=== PATIENT | female | born 1945 | race Caucasian/White ===

== ENCOUNTER → 2020-03-23 10:18 | Outpatient (REF) | payer MEDICARE, SELFPAY ==
--- NOTE | 2020-03-23 10:45 | CA_ITS ---
Transthoracic Echocardiogram Patient (Last, First, Middle): Michelle Tomlinson, Gender: Female Date of : 1945 Age: 74 Procedure Date: 03/23/2020 Procedure Type: Transthoracic Echocardiogram Location: OP Height: 162.56 cm Weight: 79.83 kg BSA: 1.85 m2 Heart Rate: bpm BP: 120 / 68 mmHg Crisis Clinician: FLOYD Referring MD: Wojciech Billings MD Symptoms: R00.2 Palpitations Study Quality: Good ECG Rhythm: Sinus Conclusions: - The left ventricular systolic function is normal. The visually estimated ejection fraction is between 60-65%. - No obvious valvular pathology seen on this study. Findings Left Ventricle Normal left ventricular cavity size. There is normal left ventricular wall thickness. The left ventricular systolic function is normal. The visually estimated ejection fraction is between 60-65%. There is no evidence of regional wall motion abnormalities. Diastolic function is normal for age. Right Ventricle Normal right ventricular cavity size and systolic function. Atria The left atrium is normal in size. The right atrium is normal in size. Aortic Valve There is a normal trileaflet aortic valve. There is no aortic valve stenosis. There is no aortic valve regurgitation. Mitral Valve The mitral valve appears normal. There is trace mitral valve regurgitation. There is no mitral valve stenosis. Pulmonic Valve The pulmonic valve was not well visualized. Tricuspid Valve Normal tricuspid valve structure. There is trace tricuspid valve regurgitation. The pulmonary artery systolic pressure is normal. Great Vessels The aortic annulus, sinuses of valsalva, and asc aorta are normal in size. Venous The inferior vena cava is normal in size and collapses greater than 50% with inspiration. Pericardium/Pleural There is no evidence of pericardial effusion. Prior Study Comparison No prior study available for comparison. Recommendations, Care & Conclusions No obvious valvular pathology seen on this study. Measurements 2D Linear Measurements IVSd: 1.01 0.6-0.9/0.6-1.0 cm LVIDd: 4.06 3.9-5.3/4.2-5.9 cm LVIDs: 2.22 2.0-3.6 cm LVPWd: 0.81 0.7-1.1 cm Ao Root: 2.37 2.1-3.5 cm LV Mass: 142.20 67-162/88-224 g LVOT Diam: 1.88 3.0+(-)1.3 cm Mitral Valve MV Pk E: 0.63 MV PK A: 0.94 MV Decel Time: 232.39 E/A: 0.67 E'Lateral: 0.09 E'Medial: 0.08 E/E' Med: 7.27 Decel [place]: 2.73 Aortic Valve AoV Pk Cong: 1.74 AoV Pk Grad: 12.12 LVOT LVOT Pk Cong: 1.25 LVOT Mn Cong: 0.75 LVOT VTI: 0.31 LVOT Pk Grad: 6.26 LVOT Mn Grad: 2.80 LVOT Diam: 1.88 LVOT Area: 2.78 Diastolic Function MV Pk E: 0.63 MV Pk A: 0.94 E/A: 0.67 E'Medial: 0.08 E/E' Med: 7.27 E' Laterial: 0.09 Tricuspid Valve TR Pk Cong: 2.54 TR Pk Grad: 25.79 RA Press: 3.00 RVSP: 28.00 Great Vessels Aorta Ao Root-2D: 2.37 2.0-3.7 cm Ao Asc: 3.30 2.1-3.4 cm Ao Arch: 2.63 Updated in Other Vendor System with Status of Final Seth Harris MD electronically signed on 03/24/2020 1:02:12 PM with status of Final
== END ==
LOC: HO.CARD 10:18
PROVIDERS: PCP Internal Medicine; Visit Provider Internal Medicine
DX: R00.2 Palpitations (principal)
CPT/HCPCS: 93306

== ENCOUNTER → 2020-04-15 13:12 | Outpatient (REF) | payer MEDICARE, SELFPAY ==
--- NOTE | 2020-04-15 13:17 | ECG_ITS ---
Hook-up date: 2020-04-15 13:30:00 Duration: 47:59:00 Test Indications: PALPITATIONS Medications: 90320 QRS complexes 75 Ventricular ectopics which represent <1 % of total QRS comp. 1266 Supraventricular ectopics which represent 1 % of total QRS comp. * Paced QRS complexs which represent % of total QRS comp. VENTRICULAR ECTOPY 72 Isolated 0 Bigeminal Cycles 0 Couplets 1 Runs 3 Beats in Runs 3 Beats LONGEST at 132 BPM at 03:42:39 2020-04-16 3 Beats FASTEST at 132 BPM at 03:42:39 2020-04-16 SUPRAVENTRICULAR ECTOPY 172 Isolated 26 Couplets 49 Runs 1042 Beats in Runs 124 Beats LONGEST at 74 BPM at 20:28:17 2020-04-15 3 Beats FASTEST at 145 BPM at 10:02:08 2020-04-16 HEART RATES 37 MIN at 03:44:29 2020-04-16 54 AVG 98 MAX at 15:23:55 2020-04-15 LONGEST RR 1.0080 secs at 03:53:12 2020-04-16 S-T LEVELS Channel 1 - 128 mm at 13:30:00 2020-04-15 - 128 mm at 13:30:00 2020-04-15 Channel 2 - 128 mm at 13:30:00 2020-04-15 - 128 mm at 13:30:00 2020-04-15 Channel 3 - 128 mm at 03:24:91 -- - 128 mm at 03:24:91 pt completed holter to asess palp.studt complted 04/15-04/16 . baselin rhythm is nsr. pt had several episodes of palp listed in her diary that correspond to runs of supraventricular beats of between 6 and 22 beats. these also occur during the day. she also had some very slow rates of bradycardia down to 37 bpm during the night. Pt has a nml EF on echo. discussed results with her and she will be referred to cardiology for further eval Referred By: Wojciech Galvez Overread By: JANIS GALVEZ MD
== END ==
LOC: HO.CARD 13:12
PROVIDERS: Visit Provider Internal Medicine
DX: R00.2 Palpitations (principal)
CPT/HCPCS: 93225; 93226

== ENCOUNTER → 2020-05-03 14:43 | Outpatient (BNVA) | payer MEDICARE, SELFPAY | PROVIDERS: PCP Internal Medicine; Referring Provider Internal Medicine; Visit Provider Internal Medicine | DX: I49.8 Other specified cardiac arrhythmias (principal); I10 Essential (primary) hypertension; G47.33 Obstructive sleep apnea (adult) (pediatric) | CPT/HCPCS: 93005; 99202 ==

== ENCOUNTER → 2020-05-17 12:49 | Outpatient (REF) | payer MEDICARE, SELFPAY ==
--- NOTE | 2020-05-17 13:23 | HM_ITS ---
TEST PERFORMED: Cardiac event monitoring. ENROLLMENT PERIOD: 05/17/2020 to 06/19/2020 - 33 days. REQUESTING PHYSICIAN: Dr. Harris. FINDINGS: In the above monitoring period, underlying rhythm was sinus. The rates ranged from 43 beats per minute to 82 beats per minute. There were several patient triggered episodes of palpitations. Some of these times have shown isolated PVCs, but the rest of them are just sinus rhythm. Rare premature supraventricular ectopy also noted. No sustained arrhythmias. CONCLUSIONS: Study shows sinus rhythm only with sinus bradycardia at times. The bradycardia episodes are more towards the nighttime. Otherwise, isolated PVCs, 1 short run of supraventricular ectopy for 9 beats at 101/min. No sustained arrhythmias. Palpitations sometimes correlate with sinus rhythm and other times with PVC. Seth Harris MD HS/MODFrancy / [id number] MTDD
== END ==
LOC: HO.SL 12:49
PROVIDERS: Visit Provider Internal Medicine
DX: I49.8 Other specified cardiac arrhythmias (principal); R00.2 Palpitations; G47.33 Obstructive sleep apnea (adult) (pediatric)
CPT/HCPCS: 93270; 95806

== ENCOUNTER → 2020-07-04 14:41 | Outpatient (BNVA) | payer MEDICARE, SELFPAY | PROVIDERS: PCP Internal Medicine; Visit Provider Internal Medicine | DX: I48.0 Paroxysmal atrial fibrillation (principal); I49.3 Ventricular premature depolarization; I10 Essential (primary) hypertension | CPT/HCPCS: 99212 ==

== ENCOUNTER 2020-09-14 06:56 | Day surgery (SDC) | payer MEDICARE, SELFPAY ==
[2020-09-08 12:19] VITALS: BMI 31.2
--- NOTE | 2020-09-13 07:50 | P.CONAN_ITS ---
Documented by User: Serena Pabon 09/13/20 07:51 HPI - Anesthesia Eval Consult details Narrative: 75yo F for Colonoscopy PMFSH Active Problems Active Problems: All Active Problems (Updated 09/08/20 @ 12:18 by Macy Anders) Atrial arrhythmia (Acute) PVC (premature ventricular contraction) (Acute) Past Medical History Medical History Arthritis Atrial arrhythmia Elevated cholesterol Essential hypertension GERD (gastroesophageal reflux disease) History of palpitations History of pneumonia PVC (premature ventricular contraction) Skin cancer Family History Family History Father Esophageal cancer Mother No problems noted. Sister No problems noted. Surgical History Surgical History History of open reduction and internal fixation (ORIF) procedure History of rectal polypectomy Hx of colonoscopy Hx of dilation and curettage Hx of tonsillectomy Social History Social History Are you a primary healthcare administration intern to a significant other at home: No Do you presently have visiting nurse or other home services: No Smoking Status: Never smoker Smoked in Last 30 Days: No Use of substances other than those prescribed or required for medical reasons: No Have you been hit, kicked, punched, or otherwise hurt by someone within the past year? If so, by whom?: No Advance Directives: No Advance Directives Information Provided: No Advance Directives on File: No Recently lost weight without trying: No Meds Allergies Allergy/AdvReac Type Severity Reaction Status Date / Time succinylcholine Allergy Unknown UNKNOWN Verified 09/14/20 07:45 [SUCCINYLCHOLINE] Home Medications Medication Instructions Recorded Confirmed Last Taken Type atorvastatin 10 mg tablet 10 mg PO BEDTIME 05/03/20 09/08/20 09/14/20 06:00 History losartan 25 mg tablet 25 mg PO DAILY 07/04/20 09/08/20 09/14/20 06:00 History wxwkdtfcqoix-drdrgmsz-ckzfzz 1 tab PO DAILY 09/08/20 09/08/20 Unknown History [Centrum Silver] Exam Exam Date and Time: September 13, 2020 0750 Height,Weight and Vital Signs: Height 5 ft 4 in Weight 82.554 kg Narrative Narrative: Per Cardiology OV: On the EKG, she has left atrial enlargement but otherwise unremarkable. Echocardiogram shows normal LVEF but no significant structural heart disease. Holter shows underlying sinus rhythm with an average rate of 54/Min. She has premature atrial contractions with some short runs. Overall burden about 1%. 30 day event monitoring shows underlying sinus rhythm with sinus bradycardia. Isolated PVCs noted with 1 short run of supraventricular ectopy. There were no sustained arrhythmias. Her palpitations could be from the atrial or ventricular ectopy. However, some diary events of palpitations could also correlate with sinus rhythm. She also underwent home sleep study which was not indicative of sleep apnea. Would not recommend any medications at this time as she has baseline resting bradycardia. Assessment and Plan Assessment Anesthesia Assessment: Chart Reviewed Documented by User: Jaqui Balderas 09/14/20 09:21 [facility] Past Medical History Medical History Arthritis Atrial arrhythmia Elevated cholesterol Essential hypertension GERD (gastroesophageal reflux disease) History of palpitations History of pneumonia PVC (premature ventricular contraction) Skin cancer Family History Family History Father Esophageal cancer Mother No problems noted. Sister No problems noted. Family history of problems with anesthesia: No Surgical History Surgical History History of open reduction and internal fixation (ORIF) procedure History of rectal polypectomy Hx of colonoscopy Hx of dilation and curettage Hx of tonsillectomy History of Problems with Anesthesia: No (HR decreases to 40s when asleep) Social History Social History Are you a primary healthcare administration intern to a significant other at home: No Do you presently have visiting nurse or other home services: No Smoking Status: Never smoker Smoked in Last 30 Days: No Use of substances other than those prescribed or required for medical reasons: No Have you been hit, kicked, punched, or otherwise hurt by someone within the past year? If so, by whom?: No Advance Directives: No Advance Directives Information Provided: No Advance Directives on File: No Recently lost weight without trying: No Meds Allergies Allergy/AdvReac Type Severity Reaction Status Date / Time succinylcholine Allergy Unknown UNKNOWN Verified 09/14/20 07:45 [SUCCINYLCHOLINE] Home Medications Medication Instructions Recorded Confirmed Last Taken Type atorvastatin 10 mg tablet 10 mg PO BEDTIME 05/03/20 09/08/20 09/14/20 06:00 History losartan 25 mg tablet 25 mg PO DAILY 07/04/20 09/08/20 09/14/20 06:00 History sxiiehucvkmv-qjgpskha-yriigi 1 tab PO DAILY 09/08/20 09/08/20 Unknown History [Centrum Silver] Exam Height,Weight and Vital Signs: Vital Signs Temp Pulse Resp BP Pulse Ox 09/14/20 07:30 97.2 F 69 18 142/57 H 99 Airway Mallampati Class: II TM Dist: >3cm Neck ROM: Full Partial: Lower Heart: RRR. Left Precordial heave Lungs: CTAB Assessment and Plan Assessment Anesthesia Assessment: Anesthesia Plan Discussed and Chart Reviewed Final Anesthetic Review NPO: Yes ASA Class: II Final Preanesthetic Review: No Changes in Pt Med Stat, Meds/Allgs Chart Reviewed, Consent Obtained/Reviewed and Anes Risks/Benef Reviewed Patient Risk: Intermediate Procedure Risk: Low Assessment/Block/Sedation in SS: Assess/Block/Sedation-SS Anesthetic Plan Anesthetic Plan: MAC: Disposition: Standard PACU
[2020-09-14 07:30] VITALS: BP 142/57; PULSE 69; RESP 18; TEMP 36.2; O2SAT 99
[2020-09-14] MEDS: Lactated Ringers 1,000 ML 100 ML IVCONT (07:53)
[2020-09-14 09:31] VITALS: BP 133/69; PULSE 77; RESP 14; TEMP 36.4; O2SAT 98
--- NOTE | 2020-09-14 09:32 | PM.OP ---
Brief Operative Note Date of Service: 09/14/20 Pre-op diagnosis: Screening Post-op diagnosis: other (Diverticulosis, Internal hemorrhoids) Procedure: Colonoscopy to the cecum and TI Surgeon: Steven Hung Anesthesia: MAC Estimated blood loss (mL): 0 Pathology: none sent Condition: stable Disposition: PACU
[2020-09-14 09:46] VITALS: BP 158/64; PULSE 62; RESP 18; TEMP 36.6; O2SAT 99
--- NOTE | 2020-09-14 11:07 | OP_ITS ---
SURGEON: Steven Hung MD INDICATIONS: The patient presents for evaluation of colorectal cancer screening and personal history of a rectal tubular adenoma with high-grade dysplasia. Full consent has been obtained from her for this, including risks of bleeding and perforation. PREOPERATIVE DIAGNOSIS: POSTOPERATIVE DIAGNOSIS: PROCEDURE PERFORMED: ESTIMATED BLOOD LOSS: COMPLICATIONS: ANESTHESIA: Monitored anesthesia care. ASSISTANTS: SPECIMENS: PROCEDURE: Colonoscopy to the cecum and terminal ileum. PREOPERATIVE DIAGNOSES: Colorectal cancer screening and personal history of tubular adenoma. POSTOPERATIVE DIAGNOSES: Colorectal cancer screening, personal history of tubular adenoma, diverticulosis, and internal hemorrhoids. DESCRIPTION OF PROCEDURE: The patient was placed in the left lateral decubitus position. The digital rectal exam revealed no abnormalities. The Olympus video pediatric colonoscope was entered into the rectum and advanced easily to the cecum. Once in the cecum I did identify normal-appearing cecal pouch, appendiceal orifice, and a normal-appearing ileocecal valve. The terminal ileum was cannulated and appeared normal. The scope was withdrawn back in the colon. The entire cecum and ileocecal valve appeared normal. The scope was slowly withdrawn assessing all mucosal surfaces carefully. Preparation was excellent. I did not visualize any sign of polyps, colitis, or angiodysplasia. There was a mild amount of sigmoid diverticulosis. Once in the rectum, scope was retroflexed visualizing some small internal hemorrhoids, but no other pathology. Primarily in the forward viewing position, I was able to visualize the scar from her previous polypectomy with some faint adjacent markings from previous ink placement. There is no sign of any residual polyp tissue. The remainder of the rectum appeared normal. The scope was withdrawn from the patient. She tolerated the procedure well and was returned to recovery area in stable condition. IMPRESSION: 1. Sigmoid diverticulosis. 2. Internal hemorrhoids. PLAN: Given her previous history, I would recommend a repeat colonoscopy in 3 years for further screening and surveillance. She will otherwise see me on a p.r.n. basis. MD KAYLA Martin/JASPREET / [id number]
== END 2020-09-14 10:26 | disposition home or self-care (01) ==
PROVIDERS: PCP Internal Medicine; Visit Provider Internal Medicine
PROC: 0DJD8ZZ Inspection of Lower Intestinal Tract, Via Natural or Artificial Opening Endoscopic (ICD-10-PCS; CPT 45378; principal; 2020-09-14 08:20)
DX: Z12.11 Encounter for screening for malignant neoplasm of colon (principal); Z86.010 Personal history of colon polyps; K57.30 Diverticulosis of large intestine without perforation or abscess without bleeding; K64.8 Other hemorrhoids; K21.9 Gastro-esophageal reflux disease without esophagitis; I10 Essential (primary) hypertension; I49.3 Ventricular premature depolarization; Z87.01 Personal history of pneumonia (recurrent); Z79.899 Other long term (current) drug therapy
CPT/HCPCS: G0105

== ENCOUNTER → 2020-12-21 10:21 | Outpatient (BNVA) | payer MEDICARE, SELFPAY | PROVIDERS: PCP Internal Medicine; Referring Provider Internal Medicine; Visit Provider Internal Medicine | DX: I49.8 Other specified cardiac arrhythmias (principal); I49.3 Ventricular premature depolarization; I10 Essential (primary) hypertension; Z79.899 Other long term (current) drug therapy | CPT/HCPCS: 99212 ==

== ENCOUNTER 2021-04-10 07:11 | Outpatient (REF) | payer MEDICARE, SELFPAY ==
[2021-04-10 07:22] LABS: MANUAL DIFF FLAG NO
[2021-04-10 07:58] LABS: Basophils Absolute Auto 0.1 X10*3/uL (0.0-0.2); Basophils Percent Auto 0.9 % (0-2); Eosinophils Absolute Auto 0.1 X10*3/uL (0.0-0.4); Hematocrit 39.6 % (37.0-47.0); Hemoglobin 13.3 g/dl (12.0-16.0); Imm Gran Abs Auto 0.01 X10*3/uL (0.00-0.03); Imm Gran Pct Auto 0.2 % (0.0-0.4); Lymphocytes Absolute Auto 1.8 X10*3/uL (1.2-4.9); Mean Corpuscular HGB Conc 33.6 g/dl (31.0-35.0); Mean Corpuscular Hemoglobin 30.6 pg (27.0-33.0); Mean Corpuscular Volume 91.2 fL (80.0-98.0); Mean Platelet Volume 10.7 fL (9.4-12.3); Monocytes Absolute Auto 0.5 X10*3/uL (0.1-1.2); Monocytes Percent Auto 7.7 % (2-11); Neutrophils Absolute Auto 3.95 x10*3/uL (2.0-8.3); Neutrophils Percent Auto 61.2 % (45-73); Platelet Count 305 X10*3/uL (160-400); Red Blood Count 4.34 X10*6/uL (4.20-5.50); Red Cell Distribution Width 12.2 % (11.0-16.0); White Blood Count 6.5 X10*3/uL (4.8-10.8)
[2021-04-10 08:23] LABS: Alanine Aminotransferase 22 U/L (0-31); Albumin Level 4.2 g/dL (3.5-5.0); Alkaline Phosphatase 82 U/L (39-117); Anion Gap 15 (12-20); Aspartate Amino Transferase 26 U/L (5-31); Bilirubin Total 0.7 mg/dL (0.0-1.0); Blood Urea Nitrogen 17 mg/dL (9-16); Calcium 9.8 mg/dL (8.4-10.2); Carbon Dioxide 25 mmol/L (22-29); Chloride 103 mmol/L (96-108); Cholesterol 185 mg/dL; Estimated Glomerular Filt Rate 49; Glucose Fasting 108 mg/dL (60-99); HDL Cholesterol 47 mg/dL; LDL Cholesterol Calculated 123 mg/dl; Potassium 4.3 mmol/L (3.3-5.1); Sodium 139 mmol/L (135-145); Total Protein 6.9 g/dL (6.5-8.0); Triglycerides 78 mg/dL
[2021-04-10 08:48] LABS: Thyroid Stimulating Hormone 2.37 uIU/mL (0.32-4.0)
[2021-04-10 10:50] LABS: Appearance Urine CLEAR; Color Urine STRAW; Glucose Urine UA NEG (NEG); Leukocyte Esterase Urine NEG (NEG); Nitrite Urine NEG (NEG); PH 6.5 (5.0-8.0); Specific Gravity - Urine <= 1.005 (1.005-1.025); Urine Blood NEG (NEG); Urine Ketones NEG (NEG); Urine Protein NEG (NEG-TRACE)
[2021-04-11 18:45] LABS: Thyroid Peroxidase Antibodies 77 IU/mL (<9)
== END 2021-04-10 07:12 | disposition home or self-care (01) ==
LOC: HO.LAB 07:11
PROVIDERS: PCP Internal Medicine; Visit Provider Internal Medicine
DX: E78.00 Pure hypercholesterolemia, unspecified (principal); I12.9 Hypertensive chronic kidney disease with stage 1 through stage 4 chronic kidney disease, or unspecified chronic kidney disease; N18.9 Chronic kidney disease, unspecified; E06.9 Thyroiditis, unspecified
CPT/HCPCS: 36415; 80053; 80061; 81003; 84439; 84443; 85025; 86376

== ENCOUNTER 2021-12-18 23:04 | Observation (INO) | payer MEDICARE, SELFPAY ==
--- NOTE | ~2021-12-18 | XR_ITS ---
EXAMINATION: XR CHEST CLINICAL INFORMATION: Chest pain COMPARISON: Chest x-ray 04/21/2019 TECHNIQUE: Frontal view of the chest was obtained. 11:20 PM FINDINGS: No significant abnormality is noted involving the heart, lungs, mediastinum, bony thorax or soft tissues. XR/XR chest 1V IMPRESSION: Unremarkable examination.
--- NOTE | 2021-12-18 23:07 | ECG_ITS ---
Test Reason : rapid h Blood Pressure : / mmHG Vent. Rate : 148 BPM Atrial Rate : 000 BPM P-R Int : 000 ms QRS Dur : 082 ms QT Int : 260 ms P-R-T Axes : 000 018 -53 degrees QTc Int : 408 ms Rhythm shows atrial flutter with variable block with rapid ventricular response Cannot rule out Anterior infarct , age undetermined Abnormal ECG When compared with ECG of 17-MAR-2019 22:55, Rhythm shows atrial flutter with variable block with rapid ventricular response has replaced Sinus rhythm Vent. rate has increased BY [address] now depressed in Anterior leads T wave inversion more evident in Inferior leads Nonspecific T wave abnormality now evident in Anterolateral leads Referred By: Generic ED Physician Electronically Signed By:MONI CAN MD
[2021-12-18 23:38] VITALS: BP 191/93; PULSE 147; RESP 18; TEMP 36.7; O2SAT 97; BMI 30.9
--- NOTE | 2021-12-18 23:46 | ED.CHESTPAIN ---
HPI - Chest Pain General Chief Complaint: Chest Pain Stated Complaint: chest pain Time Seen by Provider: 12/18/21 23:46 Source: patient Mode of arrival: ambulatory Limitations: no limitations History of Present Illness HPI narrative: Patient's history of palpitation off and on last year when she had palpitation she had Holter monitoring on 04/29 which showed only episodes of SVT since then patient did not have much palpitation today just prior to arrival she noticed palpitation check her blood pressure at home monitor showed irregular heart rate but heart rate was only 75. When patient arrived here her pulse rate was 148 AFib patient had off and on palpitations for last 2 hours after arrival patient was in sinus rhythm with heart rate in 70s patient denies any chest pain no shortness of breath was feeling dizzy when she was having the episode Related Data Home Medications Medication Instructions Recorded Confirmed atorvastatin 10 mg tablet 10 mg PO BEDTIME 05/03/20 12/21/20 losartan 25 mg tablet 25 mg PO DAILY 07/04/20 12/21/20 gmvhftzsbrog-dymleota-omwali tablet 1 tab PO DAILY 09/08/20 12/21/20 Allergies Allergy/AdvReac Type Severity Reaction Status Date / Time succinylcholine Allergy Severe Muscle Verified 12/18/21 23:38 [SUCCINYLCHOLINE] cramps Review of Systems Review of Systems: Yes all other systems are reviewed and are negative PMFSH Past Medical History Medical History Arthritis Atrial arrhythmia Elevated cholesterol Essential hypertension GERD (gastroesophageal reflux disease) History of palpitations History of pneumonia PVC (premature ventricular contraction) Skin cancer Surgical History History of open reduction and internal fixation (ORIF) procedure History of rectal polypectomy Hx of colonoscopy Hx of dilation and curettage Hx of tonsillectomy Family History Family History Father Esophageal cancer Mother No problems noted. Sister No problems noted. Social History Social History Are you a primary healthcare prof to a significant other at home: No Do you presently have visiting nurse or other home services: No Patient Tobacco Use Status: Never used Tobacco Advance Directives: No Physical Exam Vital Signs: Vital Signs: Last Vital Signs Temp 98.0 F 12/19/21 01:48 Pulse 92 12/19/21 01:48 Resp 16 12/19/21 01:48 BP 183/85 H 12/19/21 01:48 Pulse Ox 96 12/19/21 01:48 O2 Del Method 12/19/21 01:48 BMI result Body Mass Index 30.9 Appearance: Alert. Oriented X3. No acute distress. Eyes: No pallor or icterus ENT: Pharynx normal. Oral Mucosa moist Neck: Normal inspection. Neck supple. CVS: Normal heart rate and rhythm. Pulses normal. No murmur or rub Respiratory: No respiratory distress. Equal air entry bilateral, no wheezing/rales/rhonchi Abdomen: Soft and nontender. Bowel sounds are present, no mass palpable, no CVA tenderness Skin: Skin warm and dry. Normal skin color. Normal skin turgor. Extremities: Trace bilateral lower extremity edema. No calf tenderness Neuro: Oriented X 3. No motor deficit. No sensory deficit.No cerebellar signs , cranial nerves II-XII intact MDM - Chest Pain MDM Narrative Medical decision making narrative: 0130 Patient with new onset atrial fibrillation with fast ventricular rate fluctuating between 50 to 140 initially p.o. Lopressor was given without much response heart rate went again to 130s patient was given 10 mg IV Cardizem heart rate fluctuating again from 60-110 will start patient on Cardizem drip and admit patient was given Eliquis. Medical Records Data Attestation: I reviewed the patient's medical records. Lab Data Attestation: I reviewed the patient's lab results. Result diagrams: 12/18/21 23:45 12/18/21 23:45 Labs: Lab Results 12/18/21 12/18/21 12/18/21 Range/Units 23:45 23:45 23:45 WBC 9.8 (4.8-10.8) X10*3/uL RBC 4.49 (4.20-5.50) X10*6/uL Hgb 13.4 (12.0-16.0) g/dl Hct 40.2 (37.0-47.0) % MCV 89.5 (80.0-98.0) fL MCH 29.8 (27.0-33.0) pg MCHC 33.3 (31.0-35.0) g/dl RDW 12.3 (11.0-16.0) % Plt Count 354 (160-400) X10*3/uL MPV 9.7 (9.4-12.3) fL Immature Gran % (Auto) 0.6 H (0.0-0.4) % Neut % (Auto) 64.6 (45-73) % Lymph % (Auto) 25.5 (20-40) % [place] % (Auto) 6.5 (2-11) % Eos % (Auto) 1.9 (0-4) % Baso % (Auto) 0.9 (0-2) % Lymph # (Auto) 2.5 (1.2-4.9) X10*3/uL [place] # (Auto) 0.6 (0.1-1.2) X10*3/uL Eos # (Auto) 0.2 (0.0-0.4) X10*3/uL Baso # (Auto) 0.1 (0.0-0.2) X10*3/uL Abs Immat Gran (auto) 0.06 H (0.00-0.03) X10*3/uL Absolute Neuts (auto) 6.3 (2.0-8.3) x10*3/uL Absolute Nucleated RBC 0.000 (0.0-0.012) X10*3/uL Nucleated RBC % (auto) 0.0 (0.0-0.2) /100WBC PT (10.0-13.1) SEC INR (0.9-1.1) APTT (24.1-38.0) SEC Sodium 139 (135-145) mmol/L Potassium 3.6 (3.3-5.1) mmol/L Chloride 103 (96-108) mmol/L Carbon Dioxide 27 (22-29) mmol/L Anion Gap 13 (12-20) BUN 17 H (9-16) mg/dL Creatinine 1.19 (0.5-1.4) mg/dL Estim Creat Clear Calc 40.9 Estimated GFR 44 Random Glucose 143 H (60-115) mg/dL Calcium 9.9 (8.4-10.2) mg/dL Troponin I High Sens 4.7 (<3.5-17.0) ng/L COVID-19 ([facility]) (Negative) COVID-19 Clin Com 12/19/21 12/19/21 Range/Units 00:01 00:01 WBC (4.8-10.8) X10*3/uL RBC (4.20-5.50) X10*6/uL Hgb (12.0-16.0) g/dl Hct (37.0-47.0) % MCV (80.0-98.0) fL MCH (27.0-33.0) pg MCHC (31.0-35.0) g/dl RDW (11.0-16.0) % Plt Count (160-400) X10*3/uL MPV (9.4-12.3) fL Immature Gran % (Auto) (0.0-0.4) % Neut % (Auto) (45-73) % Lymph % (Auto) (20-40) % [place] % (Auto) (2-11) % Eos % (Auto) (0-4) % Baso % (Auto) (0-2) % Lymph # (Auto) (1.2-4.9) X10*3/uL [place] # (Auto) (0.1-1.2) X10*3/uL Eos # (Auto) (0.0-0.4) X10*3/uL Baso # (Auto) (0.0-0.2) X10*3/uL Abs Immat Gran (auto) (0.00-0.03) X10*3/uL Absolute Neuts (auto) (2.0-8.3) x10*3/uL Absolute Nucleated RBC (0.0-0.012) X10*3/uL Nucleated RBC % (auto) (0.0-0.2) /100WBC PT 10.1 (10.0-13.1) SEC INR 0.9 (0.9-1.1) APTT 37.8 (24.1-38.0) SEC Sodium (135-145) mmol/L Potassium (3.3-5.1) mmol/L Chloride (96-108) mmol/L Carbon Dioxide (22-29) mmol/L Anion Gap (12-20) BUN (9-16) mg/dL Creatinine (0.5-1.4) mg/dL Estim Creat Clear Calc Estimated GFR Random Glucose (60-115) mg/dL Calcium (8.4-10.2) mg/dL Troponin I High Sens (<3.5-17.0) ng/L COVID-19 ([facility]A) Negative (Negative) COVID-19 Clin Com See Note ECG Data ECG #1: Attestation: I personally reviewed and interpreted this ECG as follows: Interpretation: Atrial fibrillation with heart rate 148 beats per minute poor progression of R-wave no acute ischemic changes Critical Care Time Critical Care Time Critical Care Time: Yes Total Critical Care Time: 55 Attestation: I spent 55 minutes of critical care, with interventions, assessments, speaking to patient, consultants, and family. Discharge Plan Discharge Clinical Impression: Atrial fibrillation with rapid ventricular response Patient Disposition: Admitted As Inpatient
[2021-12-18 23:49] LABS: Basophils Absolute Auto 0.1 X10*3/uL (0.0-0.2); Basophils Percent Auto 0.9 % (0-2); Eosinophils Absolute Auto 0.2 X10*3/uL (0.0-0.4); Eosinophils Percent Auto 1.9 % (0-4); Hematocrit 40.2 % (37.0-47.0); Hemoglobin 13.4 g/dl (12.0-16.0); Imm Gran Abs Auto 0.06 X10*3/uL (0.00-0.03); Imm Gran Pct Auto 0.6 % (0.0-0.4); Lymphocytes Absolute Auto 2.5 X10*3/uL (1.2-4.9); Lymphocytes Percent Auto 25.5 % (20-40); MANUAL DIFF FLAG NO; Mean Corpuscular HGB Conc 33.3 g/dl (31.0-35.0); Mean Corpuscular Hemoglobin 29.8 pg (27.0-33.0); Mean Corpuscular Volume 89.5 fL (80.0-98.0); Mean Platelet Volume 9.7 fL (9.4-12.3); Monocytes Absolute Auto 0.6 X10*3/uL (0.1-1.2); Monocytes Percent Auto 6.5 % (2-11); Neutrophils Absolute Auto 6.3 x10*3/uL (2.0-8.3); Neutrophils Percent Auto 64.6 % (45-73); Platelet Count 354 X10*3/uL (160-400); Red Blood Count 4.49 X10*6/uL (4.20-5.50); Red Cell Distribution Width 12.3 % (11.0-16.0); White Blood Count 9.8 X10*3/uL (4.8-10.8)
--- NOTE | 2021-12-19 | ECG_ITS ---
Test Reason : RHYTHM CHANGE Blood Pressure : / mmHG Vent. Rate : 043 BPM Atrial Rate : 043 BPM P-R Int : 148 ms QRS Dur : 080 ms QT Int : 490 ms P-R-T Axes : 062 022 013 degrees QTc Int : 414 ms Marked sinus bradycardia Abnormal ECG When compared with ECG of 18-DEC-2021 23:32, Sinus bradycardia has replaced atrial flutter with RVR ST no longer depressed in Anterior leads T wave inversion less evident in Inferior leads Nonspecific T wave abnormality no longer evident in Anterolateral leads Referred By: John Kevin Electronically Signed By:JOHN KEVIN MD
[2021-12-19 00:09] LABS: Anion Gap 13 (12-20); Blood Urea Nitrogen 17 mg/dL (9-16); Calcium 9.9 mg/dL (8.4-10.2); Carbon Dioxide 27 mmol/L (22-29); Chloride 103 mmol/L (96-108); Creatinine Clr Calc Pharmacy 40.9; Estimated Glomerular Filt Rate 44; Glucose Random 143 mg/dL (60-115); Potassium 3.6 mmol/L (3.3-5.1); Sodium 139 mmol/L (135-145)
[2021-12-19 00:16] LABS: INTERNATIONAL NORM RATIO 0.9 (0.9-1.1); Prothrombin Time 10.1 SEC (10.0-13.1)
[2021-12-19 00:17] LABS: Troponin-I High Sensitivity 4.7 ng/L (<3.5-17.0)
[2021-12-19 00:19] LABS: Partial Thromboplastin Time 37.8 SEC (24.1-38.0)
[2021-12-19 00:21] LABS: COVID-19 Test Negative (Negative)
[2021-12-19] MEDS: Metoprolol Tartrate 12.5 MG HALFTAB 25 MG PO (01:00)
[2021-12-19] MEDS: Apixaban 5 MG TABLET PO ×2 (01:27→08:31)
[2021-12-19] MEDS: dilTIAZem HCL 50 MG/10 ML VIAL 10 MG IVPUSH (01:43)
[2021-12-19 01:48] VITALS: BP 183/85; PULSE 92; RESP 16; TEMP 36.7; O2SAT 96
--- NOTE | 2021-12-19 02:16 | P.HPHOSP_ITS ---
History of Present Illness Date of Service: 12/19/21 Chief Complaint: palpitations 76-year-old male with past medical history of atrial arrhythmia, HTN, HLD, GERD, PVCs who presents to the hospital with complaints of palpitations. Patient reports that her symptoms started the day prior, she felt fluttering in her chest, this was on and off lasting for few minutes resolving spontaneously. Patient reports no chest pain, she had no shortness of breath. She reports a history of palpitations about a year ago, for which she was on Holter monitor for several days and at that time she was discovered to have atrial arrhythmias/ SVTs. She reports no recent illness. She has no chest pain, no headache or change in vision, no nausea or vomiting, no or constipation, no urinary symptoms and Chronic left lower extremity swelling. On arrival to the ED patient hemodynamically stable With a heart rate of 147 was found to being AFib with RVR, blood pressure 191/93 Labs are significant for WBC count of 8.5, hemoglobin of 12.5, hematocrit of 37.7, labs otherwise unremarkable, TSH of 2.16, UA negative EKG showed AFib with RVR, ST depression in lead 1, T-wave inversions in lead 2, and 3, no other evidence of abnormalities on EKG. Patient was given 10 mg of IV push Cardizem as well as 25 mg of metoprolol p.o. with a heart rate dropping to the 50s. patient will be admitted for further management Review of Systems Review of Systems: Yes all other systems are reviewed and are negative [facility] Medical History Arthritis Atrial arrhythmia Elevated cholesterol Essential hypertension GERD (gastroesophageal reflux disease) History of palpitations History of pneumonia PVC (premature ventricular contraction) Skin cancer Family History Father Esophageal cancer Mother No problems noted. Sister No problems noted. Surgical History History of open reduction and internal fixation (ORIF) procedure History of rectal polypectomy Hx of colonoscopy Hx of dilation and curettage Hx of tonsillectomy Social History Are you a primary adult day care worker to a significant other at home: No Do you presently have visiting nurse or other home services: No Patient Tobacco Use Status: Never used Tobacco Advance Directives: No Meds Allergies Allergy/AdvReac Type Severity Reaction Status Date / Time succinylcholine Allergy Severe Muscle Verified 12/18/21 23:38 [SUCCINYLCHOLINE] cramps Active Medications: Current Medications Acetaminophen (Acetaminophen 325 Mg Tablet) 650 mg PO Q6H PRN PRN Reason: Pain, Mild (Pain Scale 1-3) Heparin Sodium (Porcine) (Heparin Sodium,Porcine 5,000 Unit/Ml Vial) 5,000 unit SUBCUT Q12H FLAQUITA Diltiazem HCl 125 mg/ Sodium (Chloride) 125 mls @ 0 mls/hr IVCONT .Q0M FLAQUITA; Protocol Ondansetron HCl (Ondansetron Hcl 4 Mg/2 Ml Vial) 4 mg IVPUSH Q8H PRN PRN Reason: Nausea and Vomiting Sodium Chloride (0.9 % Sodium Chloride Flush 3 Ml Syringe) 3 ml IVFLUSH QSHIFT [facility] Home Medications Medication Instructions Recorded Confirmed Last Taken Type atorvastatin 10 mg tablet 10 mg PO BEDTIME 05/03/20 12/21/20 09/14/20 06:00 History losartan 25 mg tablet 25 mg PO DAILY 07/04/20 12/21/20 09/14/20 06:00 History mayrmdoqzqxp-jkndakxi-podaqj tablet 1 tab PO DAILY 09/08/20 12/21/20 Unknown History Physical Exam Vital Signs and Narrative: Vital Signs: Last Vital Signs Temp 98.0 F 12/19/21 01:48 Pulse 92 12/19/21 01:48 Resp 16 12/19/21 01:48 BP 183/85 H 12/19/21 01:48 Pulse Ox 96 12/19/21 01:48 O2 Del Method 12/19/21 01:48 BMI result Body Mass Index 30.9 Const: General: cooperative and no acute distress Orientation/consciousness: patient oriented x3 Eyes: General: appearance normal, both eyes and all related structures Resp: Effort & Inspection: normal respiratory effort Auscultation: clear to auscultation bilaterally Cardio: Other: bradycardic, the heart rate in the 50s, irregular GI: Palpation (GI): Soft to palpation Auscultation: normal bowel sounds Skin: General skin exam: no rashes or lesions noted Neuro: General: patient oriented x3 Cognition (Neuro): normal cognition Extrem: General: Yes normal to inspection and Yes no pedal edema Results Labs CBC and Chem 7: 12/19/21 04:27 12/19/21 04:27 Labs: Laboratory Results - last 24 hr 12/18/21 12/18/21 12/18/21 23:45 23:45 23:45 MCV 89.5 MCH 29.8 MCHC 33.3 RDW 12.3 Plt Count 354 MPV 9.7 Immature Gran % (Auto) 0.6 H Neut % (Auto) 64.6 Lymph % (Auto) 25.5 [place] % (Auto) 6.5 Eos % (Auto) 1.9 Baso % (Auto) 0.9 Lymph # (Auto) 2.5 [place] # (Auto) 0.6 Eos # (Auto) 0.2 Baso # (Auto) 0.1 Abs Immat Gran (auto) 0.06 H Absolute Neuts (auto) 6.3 Absolute Nucleated RBC 0.000 Nucleated RBC % (auto) 0.0 PT INR APTT Anion Gap 13 Estim Creat Clear Calc 40.9 Estimated GFR 44 Random Glucose 143 H Calcium 9.9 Troponin I High Sens 4.7 COVID-19 (SHAKILA) COVID-19 Clin Com 12/19/21 12/19/21 00:01 00:01 MCV MCH MCHC RDW Plt Count MPV Immature Gran % (Auto) Neut % (Auto) Lymph % (Auto) [place] % (Auto) Eos % (Auto) Baso % (Auto) Lymph # (Auto) [place] # (Auto) Eos # (Auto) Baso # (Auto) Abs Immat Gran (auto) Absolute Neuts (auto) Absolute Nucleated RBC Nucleated RBC % (auto) PT 10.1 INR 0.9 APTT 37.8 Anion Gap Estim Creat Clear Calc Estimated GFR Random Glucose Calcium Troponin I High Sens COVID-19 (SHAKILA) Negative COVID-19 Clin Com See Note Imaging Radiologist's Impressions: Impressions Chest X-Ray 12/18/21 23:20 IMPRESSION: Unremarkable examination. Assessment and Plan (1) Atrial fibrillation with rapid ventricular response: Status: Acute Plan 76-year-old female with past medical history of atrial arrhythmia presents to the hospital with palpitations found to have AFib with RVR # AFib with RVR - unclear etiology, TSH normal - No elevated troponin, EKG changes showing nonspecific ST T wave changes, as well as AFib with RVR - patient received Cardizem IV as well as p.o. metoprolol with heart rate dropping to the 50s - will consult Cardiology, echocardiogram - at this time will keep of beta-blockers until evaluated by Cardiology - has a chadsVasc score of 4 - will start her on anticoagulation as patient also agreeable I want to be on anticoagulation # hypertension - stable - continue losartan # hyperlipidemia - continue statin DVT prophylaxis: Eliquis Quality Stroke Does the patient have a stroke diagnosis?: No VTE Prior VTE?: No VTE Risk Level:: Medical - moderate - high VTE Device Contraindication: Treatment Not Indicated VTE Drug Contraindication: N/A - Med Ordered
[2021-12-19 02:36] VITALS: BP 178/83; PULSE 53; RESP 16; TEMP 36.7; O2SAT 98
[2021-12-19 03:02] LABS: Appearance Urine CLEAR; Color Urine STRAW; Glucose Urine UA NEG (NEG); Leukocyte Esterase Urine NEG (NEG); Nitrite Urine NEG (NEG); Specific Gravity - Urine <= 1.005 (1.005-1.025); Urine Blood 1+ (NEG); Urine Ketones NEG (NEG); Urine Protein NEG (NEG-TRACE)
--- NOTE | 2021-12-19 03:09 | PC.NURSE ---
Dr. Douglas, hospitalist informed by [employer] message [employer]ad[facility] on hold t present-pt 's HR 45-55 sinus shiva, BP 170's-80's, patient's Hr known to be down to 30's during sleep-confirmed by sleep study test-awaiting reponse from
[2021-12-19 03:10] LABS: RBC Urine 0-2 /HPF (0); WBC Urine 0 /HPF (0-4)
[2021-12-19 04:39] LABS: Basophils Absolute Auto 0.1 X10*3/uL (0.0-0.2); Basophils Percent Auto 0.8 % (0-2); Eosinophils Percent Auto 0.2 % (0-4); Hematocrit 37.7 % (37.0-47.0); Hemoglobin 12.5 g/dl (12.0-16.0); Imm Gran Abs Auto 0.02 X10*3/uL (0.00-0.03); Imm Gran Pct Auto 0.2 % (0.0-0.4); Lymphocytes Absolute Auto 1.4 X10*3/uL (1.2-4.9); Lymphocytes Percent Auto 16.5 % (20-40); MANUAL DIFF FLAG NO; Mean Corpuscular HGB Conc 33.2 g/dl (31.0-35.0); Mean Corpuscular Hemoglobin 30.3 pg (27.0-33.0); Mean Corpuscular Volume 91.3 fL (80.0-98.0); Mean Platelet Volume 10.1 fL (9.4-12.3); Monocytes Absolute Auto 0.5 X10*3/uL (0.1-1.2); Monocytes Percent Auto 5.5 % (2-11); Neutrophils Absolute Auto 6.5 x10*3/uL (2.0-8.3); Neutrophils Percent Auto 76.8 % (45-73); Platelet Count 342 X10*3/uL (160-400); Red Blood Count 4.13 X10*6/uL (4.20-5.50); Red Cell Distribution Width 12.4 % (11.0-16.0); White Blood Count 8.5 X10*3/uL (4.8-10.8)
--- NOTE | 2021-12-19 04:55 | PC.NURSE ---
Patient's heart rate running 45-51, BP 140's/60's-70's, O2 Sat 96-97% RA. patient denies chest discomfort, heart palpitations at present. Order for Cardizem drip remaining on hold.
[2021-12-19 04:57] LABS: Anion Gap 11 (12-20); Blood Urea Nitrogen 15 mg/dL (9-16); Calcium 9.4 mg/dL (8.4-10.2); Carbon Dioxide 26 mmol/L (22-29); Chloride 109 mmol/L (96-108); Creatinine Clr Calc Pharmacy 48.2; Estimated Glomerular Filt Rate 53; Glucose Random 133 mg/dL (60-115); Potassium 4.4 mmol/L (3.3-5.1); Sodium 142 mmol/L (135-145)
[2021-12-19 06:00] VITALS: BP 145/56; PULSE 44; RESP 16; O2SAT 96
[2021-12-19 06:01] LABS: Thyroid Stimulating Hormone 2.16 uIU/mL (0.32-4.0)
--- NOTE | 2021-12-19 07:24 | PHA.MEDREC ---
CONFIRMED MED REC COMPLETED BY RN, NO ISSUES Pharmacy Consult ? Medication Reconciliation Pharmacy has completed the medication reconciliation.
--- NOTE | 2021-12-19 07:28 | MHC.CM.PN ---
Met with patient in regards to discharge planning. Patient lives with her sister, ambulates independently and had no services prior to coming to the hospital. 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 PCP verified. Patient has a HCP on file. However, her agent, Kimi, is her sister. Kimi recently had a hemorrhagic stroke and has difficulty with her memory. Patient is going to speak with her siblings about who her HCP will be and let CM know so that a new HCP can be completed. Obs notice explained and signed. Patient will transport herself home at d/c. Continue to monitor for d/c needs.
--- NOTE | 2021-12-19 08:07 | PC.NURSE ---
THIS HAND BOOTMAKER ASSUMED CARE OF THIS PT AT 0800 WHEN PT WAS TRANSFERRED TO OVERFLOW UNIT. WHILE TRANSFERRING PT FROM WHEELCHAIR TO BED HER HR WHEN UP LOW - MID 130s. PT DENIED CP/SOP/DIZZINESS. SHE DID REPORT FEELING MILD FLUTTERING. NO OTHER SYMPTOMS REPORTED. WILL CONTINUE TO MONITOR.
[2021-12-19] MEDS: dilTIAZem HCL 125 MG in 0.9 % Sodium Chloride 100 ML IVCONT (08:45)
[2021-12-19] MEDS: 0.9 % Sodium Chloride Flush 3 ML SYRINGE IVFLUSH (08:45)
--- NOTE | 2021-12-19 09:00 | PC.NURSE ---
Dr. Cox was made aware of elevated HR, he said to start Cardizem drip at 5 mg/5 ml. HR down to low - mid 40s prior to drip being started. Cardizem drip held at this time.
[2021-12-19 09:33] VITALS: BP 135/62; PULSE 50; RESP 15; O2SAT 95
[2021-12-19 10:51] VITALS: BP 150/48; PULSE 46
--- NOTE | 2021-12-19 11:28 | PC.NURSE ---
DR. CAN AND DR. MTZ CURRENTLY AT BEDSIDE.
--- NOTE | 2021-12-19 11:53 | P.DS_ITS ---
DS: Providers Provider Date of Service: 12/19/21 Date of admission: 12/19/21 01:47 Primary care physician: Wojciech Billings MD Consults: 12/19/21 01:47 Consult to Cardiology Routine Consulting Provider: John Kevin Reason for consultation: new a fib with RVR Has provider been notified: No DS: Diagnosis Discharge Diagnosis (1) Atrial fibrillation with rapid ventricular response: Status: Acute DS: Summary Hospital Course Hospital Course: HPI from the admission H&P: '76-year-old male with past medical history of atrial arrhythmia, HTN, HLD, GERD, PVCs who presents to the hospital with complaints of palpitations.? Patient reports that her symptoms started the day prior, she felt fluttering in her chest, this was on and off lasting for few minutes resolving spontaneously.? Patient reports no chest pain, she had no shortness of breath.? She reports a history of palpitations about a year ago, for which she was on Holter monitor for several days and at that time she was discovered to have atrial arrhythmias/ SVTs.? She reports no recent illness.? She has no chest pain, no headache or change in vision, no nausea or vomiting, no? or constipation, no urinary symptoms and Chronic left lower extremity swelling.? On arrival to the ED patient hemodynamically stable With a heart rate of 147 was found to being AFib with RVR, blood pressure 191/93 Labs are significant for WBC count of 8.5, hemoglobin of 12.5, hematocrit of 37.7, labs otherwise unremarkable, TSH of 2.16, UA negative EKG showed? AFib with RVR,? ST depression in lead 1, T-wave inversions in lead 2, and 3, no other evidence of abnormalities on EKG. ? Patient? was given 10 mg of IV push Cardizem as well as 25 mg of metoprolol p.o. with a heart rate dropping to the 50s.' Hospital Course: Patient was given 1 dose of PO metoprolol 25mg and IV push cardizem 10mg. With this the patient converted in to sinus. She did have a brief period of a. fib rvr with this but converted on her own. She was seen by fusing line inspector who neda mmended metoprolol 12.5mg daily along with anticoagulation. She will be d/c on Eliquis 5mg BID. She is very cognizant of her cardiac symptoms and has been advised to return to the ED should she have persistent a. fib. The remainder of her cardiac work up will be completed in the outpatient setting. Time Spent with Patient Time attestation: Total time spent providing and/or coordinating discharge services: Discharge coordination time: Greater than 30 minutes Quality: Safe Use of Opioids Does Pt have an Active Cancer Diagnosis on the Problem List?: No Quality: Stroke Does the patient have a stroke diagnosis?: No Physical Exam Vital Signs: Vital Signs: Last Vital Signs Temp 98.0 F 12/19/21 02:36 Pulse 46 L 12/19/21 10:51 Resp 15 12/19/21 09:33 BP 150/48 H 12/19/21 10:51 Pulse Ox 95 12/19/21 09:33 O2 Del Method 12/19/21 09:33 BMI result Body Mass Index 30.9 Const: Other: General - no acute distress, appears comfortable Cardiovascular - regular rate and rhythm, S1-S2 Lungs - normal respiratory effort, clear to auscultation bilaterally, no wheezing Abdomen - soft, nontender, no rebound or guarding Extremities - no edema bilaterally Neuro - awake and alert, no focal deficits DS: Data Data Completed and Pending Labs on day of discharge: Laboratory Results - last 24 hr 12/18/21 12/18/21 12/18/21 23:45 23:45 23:45 WBC 9.8 RBC 4.49 Hgb 13.4 Hct 40.2 MCV 89.5 MCH 29.8 MCHC 33.3 RDW 12.3 Plt Count 354 MPV 9.7 Immature Gran % (Auto) 0.6 H Neut % (Auto) 64.6 Lymph % (Auto) 25.5 [place] % (Auto) 6.5 Eos % (Auto) 1.9 Baso % (Auto) 0.9 Lymph # (Auto) 2.5 [place] # (Auto) 0.6 Eos # (Auto) 0.2 Baso # (Auto) 0.1 Abs Immat Gran (auto) 0.06 H Absolute Neuts (auto) 6.3 Absolute Nucleated RBC 0.000 Nucleated RBC % (auto) 0.0 PT INR APTT Sodium 139 Potassium 3.6 Chloride 103 Carbon Dioxide 27 Anion Gap 13 BUN 17 H Creatinine 1.19 Estim Creat Clear Calc 40.9 Estimated GFR 44 Random Glucose 143 H Calcium 9.9 Troponin I High Sens 4.7 TSH Urine Color Urine Appearance Urine pH Ur Specific Bells Urine Protein Urine Glucose (UA) Urine Ketones Urine Blood Urine Nitrite Ur Leukocyte Esterase Urine RBC Urine WBC Ur Squamous Epith Cells Urine Bacteria COVID-19 (SHAKILA) COVID-19 Clin Com 12/19/21 12/19/21 12/19/21 00:01 00:01 02:40 WBC RBC Hgb Hct MCV MCH MCHC RDW Plt Count MPV Immature Gran % (Auto) Neut % (Auto) Lymph % (Auto) [place] % (Auto) Eos % (Auto) Baso % (Auto) Lymph # (Auto) [place] # (Auto) Eos # (Auto) Baso # (Auto) Abs Immat Gran (auto) Absolute Neuts (auto) Absolute Nucleated RBC Nucleated RBC % (auto) PT 10.1 INR 0.9 APTT 37.8 Sodium Potassium Chloride Carbon Dioxide Anion Gap BUN Creatinine Estim Creat Clear Calc Estimated GFR Random Glucose Calcium Troponin I High Sens TSH Urine Color STRAW Urine Appearance CLEAR Urine pH 6.0 Ur Specific Bells <= 1.005 Urine Protein NEG Urine Glucose (UA) NEG Urine Ketones NEG Urine Blood 1+ H Urine Nitrite NEG Ur Leukocyte Esterase NEG Urine RBC 0-2 Urine WBC 0 Ur Squamous Epith Cells NONE Urine Bacteria NONE COVID-19 (SHAKILA) Negative COVID-19 Clin Com See Note 12/19/21 12/19/21 04:27 04:27 WBC 8.5 RBC 4.13 L Hgb 12.5 Hct 37.7 MCV 91.3 MCH 30.3 MCHC 33.2 RDW 12.4 Plt Count 342 MPV 10.1 Immature Gran % (Auto) 0.2 Neut % (Auto) 76.8 H Lymph % (Auto) 16.5 L [place] % (Auto) 5.5 Eos % (Auto) 0.2 Baso % (Auto) 0.8 Lymph # (Auto) 1.4 [place] # (Auto) 0.5 Eos # (Auto) 0.0 Baso # (Auto) 0.1 Abs Immat Gran (auto) 0.02 Absolute Neuts (auto) 6.5 Absolute Nucleated RBC 0.000 Nucleated RBC % (auto) 0.0 PT INR APTT Sodium 142 Potassium 4.4 D Chloride 109 H Carbon Dioxide 26 Anion Gap 11 L BUN 15 Creatinine 1.01 Estim Creat Clear Calc 48.2 Estimated GFR 53 Random Glucose 133 H Calcium 9.4 Troponin I High Sens TSH 2.16 Urine Color Urine Appearance Urine pH Ur Specific Bells Urine Protein Urine Glucose (UA) Urine Ketones Urine Blood Urine Nitrite Ur Leukocyte Esterase Urine RBC Urine WBC Ur Squamous Epith Cells Urine Bacteria COVID-19 (SHAKILA) COVID-19 Clin Com Discharge Plan Discharge Patient Disposition: Home, Self-Care Referrals: Wojciech Billings MD [Primary Care Provider] - 1 Week Discharge Medications: New Eliquis 5 mg tablet 5 mg PO BID Qty: 60 0RF metoprolol succinate [Toprol XL] 25 mg tablet extended release 24 hr 12.5 mg PO DAILY Qty: 30 0RF Continued atorvastatin 10 mg tablet 1 tab PO BEDTIME losartan 25 mg tablet 1 tab PO DAILY ciclopirox 0.77 % cream 1 appl topical BID Protocol: Apply to: Apply to: FEET Discharge Orders: Discharge Order (Routine); Ordered 12/19/21 Ordered By: Emerson Cox Diet: Advance to usual diet Activity on Discharge: As tolerated Stand Alone Forms: Patient Portal Discharge page Care Plan Goals: To stay healthy and out of the hospital. Health Concerns: Paroxysmal A. Fib Plan of Treatment: Take Eliquis 5mg twice daily Take metoprolol 12.5mg daily -- first dose tonight Follow up with cardiology clinic Assessment: see discharge summary
--- NOTE | 2021-12-19 12:03 | MHC.CM.PN ---
Received notification that patient will be discharged home on new Eliquis. Eliquis trial card provided and explained. Patient verbalized understanding.
--- NOTE | 2021-12-19 12:05 | P.CONCA_ITS ---
History of Present Illness History of Present Illness Date of Service: 12/19/21 Requesting physician: Emerson Cox Consult reason: other (Atrial flutter) Chief complaint: new AFib w/ RVR Narrative: Thank you for calling us and consult on Michelle who sees Dr. Harris in cardiology follow-up as outpatient. Patient has prior history of atrial arrhythmia and sinus bradycardia as well as hypertension. Her atrial arrhythmias in the past have been frequent PACs and short runs of atrial arrhythmias. She has been tried on metoprolol therapy in the past but has led to bradycardia and currently not on any rate lowering medications. She came to the hospital with persistent palpitations for 2 days and was noted to be in atrial flutter with rapid ventricular response with variable conduction. She was subsequently given rate control with IV Cardizem p.o. metoprolol and subsequently converted to sinus rhythm with sinus bradycardia. Her symptoms resolved right away. She then had another episode of atrial fibrillation/flutter in the morning this was not document by EKG and was going to be started on IV Cardizem drip but subsequently converted back to sinus rhythm. She has been running sinus bradycardia. She has no symptoms wha tsoever. She denies any lightheadedness, syncope. With her rapid palpitation she did not have any shortness of breath, chest pain, lightheadedness, syncope. She has been given Eliquis last night and this morning. She got 1 dose of IV Cardizem IV as well as p.o. metoprolol at 02:00. She is worried about slow heart rate. She has not had any prior syncopal events. She has had intermittent episodes of palpitation which have been short lasting in the past. Never in the past had sustained atrial arrhythmias such as atrial flutter fibrillation. Her last echocardiogram in March 2020 at showed normal LV systolic function. Review of Systems Review of Systems: Yes all other systems are reviewed and are negative [facility] Past Medical History Medical History Arthritis Atrial arrhythmia Elevated cholesterol Essential hypertension GERD (gastroesophageal reflux disease) History of palpitations History of pneumonia PVC (premature ventricular contraction) Skin cancer Family History Family History Father Esophageal cancer Mother No problems noted. Sister No problems noted. Surgical History Surgical History History of open reduction and internal fixation (ORIF) procedure History of rectal polypectomy Hx of colonoscopy Hx of dilation and curettage Hx of tonsillectomy Social History Social History Are you a primary manager respiratory care to a significant other at home: No Do you presently have visiting nurse or other home services: No Patient Tobacco Use Status: Never used Tobacco Use of substances other than those prescribed or required for medical reasons: No Advance Directives: Yes Advance Directives on File: Yes Advance Directives Date on File: 12/19/21 service: No Current occupational status: employed Meds Allergies Allergy/AdvReac Type Severity Reaction Status Date / Time succinylcholine Allergy Severe Muscle Verified 12/18/21 23:38 [SUCCINYLCHOLINE] cramps Active Medications: Current Medications Acetaminophen (Acetaminophen 325 Mg Tablet) 650 mg PO Q6H PRN PRN Reason: Pain, Mild (Pain Scale 1-3) Apixaban (Apixaban 5 Mg Tablet) 5 mg PO BID [facility] Last Admin: 12/19/21 08:31 Dose: 5 mg Ondansetron HCl (Ondansetron Hcl 4 Mg/2 Ml Vial) 4 mg IVPUSH Q8H PRN PRN Reason: Nausea and Vomiting Pharmacy Consult (Consult Rx Perform Med Rec) 1 each MISCELLANE ONCE PRN PRN Reason: Consult order Sodium Chloride (0.9 % Sodium Chloride Flush 3 Ml Syringe) 3 ml IVFLUSH QSHIFT [facility] Last Admin: 12/19/21 08:45 Dose: 3 ml Home Medications Medication Instructions Recorded Confirmed Last Taken Type atorvastatin 10 mg tablet 1 tab PO BEDTIME 12/19/21 12/19/21 Unknown History ciclopirox 0.77 % topical cream 1 appl topical BID 12/19/21 12/19/21 Unknown History losartan 25 mg tablet 1 tab PO DAILY 12/19/21 12/19/21 Unknown History Physical Exam Vital Signs: Vital Signs: Last Vital Signs Temp 98.0 F 12/19/21 02:36 Pulse 46 L 12/19/21 10:51 Resp 15 12/19/21 09:33 BP 150/48 H 12/19/21 10:51 Pulse Ox 95 12/19/21 09:33 O2 Del Method 12/19/21 09:33 BMI result Body Mass Index 30.9 Const: General: cooperative, comfortable, no acute distress, well developed, alert and awake Nutritional Appearance: well nourished and overweight Orientation/consciousness: patient oriented x3 Limitations: no limitations HEENT: Head: Yes normocephalic and Yes atraumatic Neck: Neck: Yes trachea midline, Yes supple and Yes no JVD Chest: Chest palpation & inspection: normal inspection of the chest Resp: Effort & Inspection: normal respiratory effort Auscultation: clear to auscultation bilaterally Cardio: Jugular venous distension: no JVD Palpation: normal PMI Rate: bradycardic Rhythm: regular rhythm Heart sounds: S1 normal heart sound present, S2 normal heart sound present, no click, no gallops, no murmurs and no rubs GI: Auscultation: normal bowel sounds Skin: General skin exam: no rashes or lesions noted Neuro: General: patient oriented x3 and no focal motor deficits Extrem: General: Yes no clubbing, cyanosis or edema Objective Labs and Meds Result diagrams: 12/19/21 04:27 12/19/21 04:27 Lab results: Laboratory Results - last 24 hr 12/18/21 12/18/21 12/18/21 23:45 23:45 23:45 WBC 9.8 RBC 4.49 Hgb 13.4 Hct 40.2 MCV 89.5 MCH 29.8 MCHC 33.3 RDW 12.3 Plt Count 354 MPV 9.7 Immature Gran % (Auto) 0.6 H Neut % (Auto) 64.6 Lymph % (Auto) 25.5 Coal % (Auto) 6.5 Eos % (Auto) 1.9 Baso % (Auto) 0.9 Lymph # (Auto) 2.5 Coal # (Auto) 0.6 Eos # (Auto) 0.2 Baso # (Auto) 0.1 Abs Immat Gran (auto) 0.06 H Absolute Neuts (auto) 6.3 Absolute Nucleated RBC 0.000 Nucleated RBC % (auto) 0.0 PT INR APTT Sodium 139 Potassium 3.6 Chloride 103 Carbon Dioxide 27 Anion Gap 13 BUN 17 H Creatinine 1.19 Estim Creat Clear Calc 40.9 Estimated GFR 44 Random Glucose 143 H Calcium 9.9 Troponin I High Sens 4.7 TSH Urine Color Urine Appearance Urine pH Ur Specific [place] Urine Protein Urine Glucose (UA) Urine Ketones Urine Blood Urine Nitrite Ur Leukocyte Esterase Urine RBC Urine WBC Ur Squamous Epith Cells Urine Bacteria COVID-19 ([facility]) COVID-19 Clin Com 12/19/21 12/19/21 12/19/21 00:01 00:01 02:40 WBC RBC Hgb Hct MCV MCH MCHC RDW Plt Count MPV Immature Gran % (Auto) Neut % (Auto) Lymph % (Auto) Coal % (Auto) Eos % (Auto) Baso % (Auto) Lymph # (Auto) Coal # (Auto) Eos # (Auto) Baso # (Auto) Abs Immat Gran (auto) Absolute Neuts (auto) Absolute Nucleated RBC Nucleated RBC % (auto) PT 10.1 INR 0.9 APTT 37.8 Sodium Potassium Chloride Carbon Dioxide Anion Gap BUN Creatinine Estim Creat Clear Calc Estimated GFR Random Glucose Calcium Troponin I High Sens TSH Urine Color STRAW Urine Appearance CLEAR Urine pH 6.0 Ur Specific [place] <= 1.005 Urine Protein NEG Urine Glucose (UA) NEG Urine Ketones NEG Urine Blood 1+ H Urine Nitrite NEG Ur Leukocyte Esterase NEG Urine RBC 0-2 Urine WBC 0 Ur Squamous Epith Cells NONE Urine Bacteria NONE COVID-19 ([facility]) Negative COVID-19 Clin Com See Note 12/19/21 12/19/21 04:27 04:27 WBC 8.5 RBC 4.13 L Hgb 12.5 Hct 37.7 MCV 91.3 MCH 30.3 MCHC 33.2 RDW 12.4 Plt Count 342 MPV 10.1 Immature Gran % (Auto) 0.2 Neut % (Auto) 76.8 H Lymph % (Auto) 16.5 L Coal % (Auto) 5.5 Eos % (Auto) 0.2 Baso % (Auto) 0.8 Lymph # (Auto) 1.4 Coal # (Auto) 0.5 Eos # (Auto) 0.0 Baso # (Auto) 0.1 Abs Immat Gran (auto) 0.02 Absolute Neuts (auto) 6.5 Absolute Nucleated RBC 0.000 Nucleated RBC % (auto) 0.0 PT INR APTT Sodium 142 Potassium 4.4 D Chloride 109 H Carbon Dioxide 26 Anion Gap 11 L BUN 15 Creatinine 1.01 Estim Creat Clear Calc 48.2 Estimated GFR 53 Random Glucose 133 H Calcium 9.4 Troponin I High Sens TSH 2.16 Urine Color Urine Appearance Urine pH Ur Specific [place] Urine Protein Urine Glucose (UA) Urine Ketones Urine Blood Urine Nitrite Ur Leukocyte Esterase Urine RBC Urine WBC Ur Squamous Epith Cells Urine Bacteria COVID-19 ([facility]) COVID-19 Clin Com Imaging Radiologist's impression: Impressions Chest X-Ray 12/18/21 23:20 IMPRESSION: Unremarkable examination. Assessment and Plan (1) Paroxysmal atrial flutter: Status: Acute Paroxysmal atrial flutter in this elderly woman with prior history of hypertension. CHADSVASc score of at least 4. Agree with oral anticoagulation therapy with Eliquis 5 mg b.i.d. given her normal renal function. Semi annual renal function test should be pursued. Risks and benefits of oral anticoagulation therapy were discussed. She understands agrees. Her main issues going to be bradycardia which is sinus bradycardia with without any symptoms. She has got couple of rate controlling medications overnight which ma y be making her more prominently bradycardiac. She has no symptoms associated with it. No prior history of syncope. However this could be of issue treating her with rate lowering medication. Was started on a very low-dose of metoprolol Toprol-XL 12.5 mg daily. She will take her 1st dose tonight at 22:00 and then starting gradually over the next few days switch her to lease attendant at 08:00. She is advised to continue monitor her pulse and her symptoms on a regular basis and log them. Will schedule for Holter monitor next week. Follow-up with Dr. Harris 2 weeks time. If she continues to have significant bradycardia on low-dose metoprolol therapy and/or requires increasing therapy for her recurrent tachyarrhythmias including antiarrhythmic drug therapy may require pacemaker placement. This was clearly discussed with her. Continue her antihypertensive with losartan. Advised to monitor blood pressure at home and maintain a log. She will need an echocardiogram, can be done as an inpatient. Patient can be discharged home as she appears to be stable at this point time. Advised to call me if she has any significant symptoms over the next few days. Follow up in the clinic in 2 weeks time Procedures Date of Service Date of Service: 12/19/21
--- NOTE | 2021-12-19 12:47 | PC.NURSE ---
pt medically cleared for discharge. discharge summary reviewed with pt. pt denies pain, HR at baseline. IV removed as documented.
== END 2021-12-19 12:42 | disposition home or self-care (01) ==
LOC: HO.ED 12-19 01:50 → HO.EDOVER 12-19 01:52
PROVIDERS: Admitting Provider Internal Medicine; Emergency Provider Internal Medicine; PCP Internal Medicine; Visit Provider Family Medicine
DX: I48.20 Chronic atrial fibrillation, unspecified (principal); I48.92 Unspecified atrial flutter; I10 Essential (primary) hypertension; R00.2 Palpitations; E78.5 Hyperlipidemia, unspecified; Z20.822 Contact with and (suspected) exposure to COVID-19; Z79.899 Other long term (current) drug therapy
CPT/HCPCS: 36415; 71045; 80048; 81001; 81003; 84443; 84484; 85025; 85610; 85730; 87635; 93005; 96365; 96375; 99219; 99285

== ENCOUNTER → 2021-12-21 13:47 | Outpatient (REF) | payer MEDICARE, SELFPAY ==
--- NOTE | 2021-12-21 13:49 | CA_ITS ---
Transthoracic Echocardiogram Patient (Last, First, Middle): Michelle Tomlinson, Gender: Female Date of : 1945 Age: 76 Procedure Date: 12/21/2021 Procedure Type: Transthoracic Echocardiogram Location: OP Height: 162.56 cm Weight: 80.29 kg BSA: 1.86 m2 Heart Rate: bpm BP: 120 / 76 mmHg Cart Pusher: TO Referring MD: John Kevin MD Venue Attendant: John Kevin MD Symptoms: I48.92 - Unspecified atrial flutter Study Quality: Adequate ECG Rhythm: Sinus Conclusions: - 1. Normal LV systolic function with impaired relaxation filling pattern 2. Cardiac valvular Doppler within normal limits 3. Normal RV systolic pressure 4. No gross pericardial effusion Findings Left Ventricle Normal left ventricular size, thickness, and systolic function. The visually estimated ejection fraction is between 60-65%. Spectral Doppler is indicative of an impaired relaxation filling pattern. E/E prime ratio is between 8 and 15 consistent with indeterminate filling pressures. Right Ventricle Normal right ventricular cavity size and systolic function. Atria The left atrium is likely dilated. There is lipomatous hypertrophy of the interatrial septum. There is no evidence of interatrial shunt. The right atrium is normal in size. Aortic Valve The aortic valve structure and function is likely normal. There is no aortic valve stenosis. There is no aortic valve regurgitation. Mitral Valve There is mild anterior mitral leaflet thickening. There is trace mitral valve regurgitation. There is no mitral valve stenosis. Pulmonic Valve The pulmonic valve was not well visualized. Tricuspid Valve Likely normal tricuspid valve structure and function. There is mild tricuspid valve regurgitation. The right ventricular systolic pressure is normal. The right ventricular systolic pressure is 23 mmHg. Normal right atrial pressure. There is no evidence of pulmonary hypertension. Great Vessels All visible segments of the aorta are normal in size. The pulmonary artery was not well visualized. Venous The inferior vena cava is normal in size and collapses greater than 50% with inspiration. Pericardium/Pleural There is no evidence of pericardial effusion. Prior Study Comparison No significant change compared to prior study dated: 03/23/2020. Measurements 2D Linear Measurements IVSd: 1.14 0.6-0.9/0.6-1.0 cm LVIDd: 4.46 3.9-5.3/4.2-5.9 cm LVIDd Index: 2.40 2.4-3.2/2.2-3.1 cm/m2 LVIDs: 2.73 2.0-3.6 cm LVPWd: 0.87 0.7-1.1 cm LA Diam: 4.30 2.7-3.8/3.0-4.0 cm LAIDs Index: 2.31 1.5-2.3 cm/m2 LV Mass: 189.54 67-162/88-224 g LV Mass Index: 101.90 43-95/49-115 g/m2 LVOT Diam: 2.00 3.0+(-)1.3 cm 2D Systolic Function EF 4C: 60.50 >55% EF 2C: 68.90 >55% EF BiP: 66.30 >55% Mitral Valve MV Pk E: 0.87 MV PK A: 0.93 MV Decel Time: 227.00 E/A: 0.90 E'Lateral: 8.92 E'Medial: 8.27 E/E' Med: 10.50 E/E' Lat: 9.70 PHT: 67.00 MVA PHT: 3.28 Decel [place]: 3.82 Aortic Valve AoV Pk Cong: 1.66 AoV Mn Cong: 1.06 AoV VTI: 0.38 AoV Pk Grad: 11.00 Aov Mn Grad: 5.00 VINCE Cont.VTI: 2.66 LVOT LVOT Pk Cong: 1.31 LVOT Mn Cong: 0.77 LVOT VTI: 0.32 LVOT Pk Grad: 7.00 LVOT Mn Grad: 3.00 LVOT Diam: 2.00 LVOT Area: 3.14 Diastolic Function MV Pk E: 0.87 MV Pk A: 0.93 E/A: 0.90 E'Medial: 8.27 E/E' Med: 10.50 E' Laterial: 8.92 E/E' Lat: 9.70 Right Ventricle TAPSE (mm): 25.70 TVS' Cong: 20.20 Tricuspid Valve TR Pk Cong: 2.23 TR Pk Grad: 20.00 RA Press: 3.00 RVSP: 23.00 Great Vessels Aorta Sinus of Valsalva: 2.94 2.0-3.[address] [place]: 2.00 1.7-3.4 cm Ao Asc: 3.40 2.1-3.4 cm Updated in Other Vendor System with Status of Final John Kevin MD electronically signed on 12/22/2021 3:36:18 PM with status of Final
--- NOTE | 2021-12-21 13:53 | HM_ITS ---
Conclusion: 1. Patient was monitored for total period of 2 days and 23 hours 2. Baseline rhythm is normal sinus rhythm with average heart rate of 49 beats per minute 3. Frequent sinus bradycardia noted with 59% of time heart rate less than 60 beats per minute with lowest heart rate of 33 beats per minute 4. No significant pauses noted 5. Frequent short burst of supraventricular ectopy consistent with atrial fibrillation/flutter with longest episode lasting 2 minutes and 21 seconds with a total burden of 0.14% 6. Total of 9094 PACs accounting for 1.44% of total beats accounting for frequent PACs 7. No patient reported events MTDD
== END ==
LOC: HO.CARD 13:47
PROVIDERS: Visit Provider Internal Medicine Cardiovascular Disease
DX: I48.92 Unspecified atrial flutter (principal); G47.33 Obstructive sleep apnea (adult) (pediatric)
CPT/HCPCS: 93242; 93306

== ENCOUNTER → 2022-01-22 15:06 | Outpatient (BNVA) | payer MEDICARE, SELFPAY | PROVIDERS: PCP Internal Medicine; Visit Provider Internal Medicine | DX: I48.92 Unspecified atrial flutter (principal); R00.1 Bradycardia, unspecified; Z79.899 Other long term (current) drug therapy | CPT/HCPCS: 99212 ==

== ENCOUNTER → 2022-03-01 08:24 | Outpatient (REF) | payer MEDICARE, SELFPAY ==
--- NOTE | ~2022-03-01 | NM_ITS ---
EXERCISE MYOCARDIAL PERFUSION STUDY INDICATION: Atrial flutter, assess for coronary disease and ischemia TECHNIQUE: The patient was brought in for an exercise perfusion study on 03/01/2022. Patient performed exercise as per Jac protocol and was injected 30 mCi of sestamibi once target heart rate was achieved. Images were obtained using the SPECT gamma camera interlaced with the gating device. Images were obtained in supine position. Resting perfusion study was performed on 03/02/2022. Patient was administered 30 mCi of sestamibi intravenously at rest. Images were then obtained in supine position. Total DLP 97mGy-cm. Images were processed with the software and compared side to side in short axis, horizontal long axis and vertical long axis views. FINDINGS: Raw images were reviewed. The stress perfusion study showed mildly diminished tracer uptake in the distal inferolateral wall. There is also reduced tracer uptake in the proximal part of inferolateral wall. With CT attenuation correction, there is improvement suggestive of diaphragmatic attenuation artifact. The gated study shows normal LV systolic function with calculated LVEF of > 70%. LV cavity is normal in size. The gated study shows normal wall thickening and contraction of segments. Resting study shows no significant perfusion abnormality. Gating at rest reveals normal wall motion with ejection fraction at 66%. The findings are consistent with no reversible or fixed perfusion abnormality. CA/CA cardiolite stress test IMPRESSION: 1. Myocardial perfusion imaging study shows no clear reversible or fixed perfusion defects. Likely normal myocardial perfusion. 2. Gated LVEF is > 70% during stress and 66% during rest. 3. Transient ischemic dilatation not present. EKG component of the test reported separately.
--- NOTE | 2022-03-01 08:27 | CA_ITS ---
Acquisition Time: 2022-03-01 08:29:26 Total Exercise Time: 00:05:00 Test Indications: AFIB, IVELISSE Medications: Protocol: JAC Max HR: 134 BPM 93% of Pred: 143 BPM Max BP: 164/082 mmHG Max Work Load: 4.6 METS Exercise stress test with exercise 5 min of Jac stage 1 achieing 93% MPHR ( stage held due to fatigue and heart rate > 85% by 2.5 min exercise) with mild sob, no chest discomfort, with isolated PVCs and ventricular cuplets, with normotensive response to exercise, with EKG changes meeting criteria for ischemia in V4-V6 then with downsloping ST segments inferiorly and V4-V6 in recovery. Nuclear images pending. Test reviewed with Dr Harris Referred By: Seth Harris Overread By: CHADD LINK
== END ==
LOC: HO.CARD 08:24
PROVIDERS: Visit Provider Internal Medicine
DX: I48.92 Unspecified atrial flutter (principal)
CPT/HCPCS: 78452; 93017; A9500; J0280; J2785

== ENCOUNTER 2022-04-26 08:57 | Outpatient (REF) | payer MEDICARE, SELFPAY ==
[2022-04-26 10:06] LABS: Anion Gap 12 (12-20); Blood Urea Nitrogen 13 mg/dL (9-16); Calcium 9.6 mg/dL (8.4-10.2); Carbon Dioxide 29 mmol/L (22-29); Chloride 106 mmol/L (96-108); Estimated Glomerular Filt Rate 50; Glucose Random 105 mg/dL (60-115); Magnesium 2.1 mg/dL (1.6-2.6); Potassium 4.7 mmol/L (3.3-5.1); Sodium 142 mmol/L (135-145)
== END 2022-04-26 08:58 | disposition home or self-care (01) ==
LOC: HO.LAB 08:57
PROVIDERS: PCP Internal Medicine; Visit Provider Internal Medicine
DX: I48.0 Paroxysmal atrial fibrillation (principal); I12.9 Hypertensive chronic kidney disease with stage 1 through stage 4 chronic kidney disease, or unspecified chronic kidney disease; N18.9 Chronic kidney disease, unspecified
CPT/HCPCS: 36415; 80048; 83735

== ENCOUNTER 2022-05-25 08:20 | Outpatient (REF) | payer MEDICARE, SELFPAY ==
[2022-05-25 08:43] LABS: MANUAL DIFF FLAG NO
[2022-05-25 10:04] LABS: Basophils Absolute Auto 0.1 X10*3/uL (0.0-0.2); Basophils Percent Auto 1.2 % (0-2); Eosinophils Absolute Auto 0.2 X10*3/uL (0.0-0.4); Eosinophils Percent Auto 2.2 % (0-4); Hematocrit 40.5 % (37.0-47.0); Hemoglobin 13.1 g/dl (12.0-16.0); Imm Gran Abs Auto 0.02 X10*3/uL (0.00-0.03); Imm Gran Pct Auto 0.3 % (0.0-0.4); Lymphocytes Absolute Auto 1.6 X10*3/uL (1.2-4.9); Lymphocytes Percent Auto 22.9 % (20-40); Mean Corpuscular HGB Conc 32.3 g/dl (31.0-35.0); Mean Corpuscular Hemoglobin 29.8 pg (27.0-33.0); Mean Platelet Volume 10.8 fL (9.4-12.3); Monocytes Absolute Auto 0.4 X10*3/uL (0.1-1.2); Monocytes Percent Auto 6.5 % (2-11); Neutrophils Absolute Auto 4.6 x10*3/uL (2.0-8.3); Neutrophils Percent Auto 66.9 % (45-73); Platelet Count 363 X10*3/uL (160-400); Red Cell Distribution Width 12.5 % (11.0-16.0); White Blood Count 6.8 X10*3/uL (4.8-10.8)
[2022-05-25 10:55] LABS: Cholesterol 194 mg/dL; HDL Cholesterol 51 mg/dL; LDL Cholesterol Calculated 127 mg/dl; Triglycerides 84 mg/dL
== END 2022-05-25 08:21 | disposition home or self-care (01) ==
LOC: HO.LAB 08:20
PROVIDERS: PCP Internal Medicine; Visit Provider Internal Medicine
DX: I48.0 Paroxysmal atrial fibrillation (principal); E78.00 Pure hypercholesterolemia, unspecified; I12.9 Hypertensive chronic kidney disease with stage 1 through stage 4 chronic kidney disease, or unspecified chronic kidney disease; N18.9 Chronic kidney disease, unspecified
CPT/HCPCS: 36415; 80061; 85025

== ENCOUNTER 2022-05-30 13:41 | Outpatient (REF) | payer MEDICARE, SELFPAY ==
--- NOTE | ~2022-05-30 | US_ITS ---
EXAMINATION: NONINVASIVE ASSESSMENT OF THE ARTERIES OF BOTH LOWER EXTREMITIES INCLUDING BILATERAL LOWER EXTREMITY DUPLEX. CLINICAL INFORMATION: Peripheral vascular disease COMPARISON: None TECHNIQUE: duplex Doppler techniques with wave form analysis and measurement of velocities in the right common femoral, profunda femoral, superficial femoral, popliteal, tibial and peroneal arteries. The study was performed only at rest. FINDINGS: RIGHT LEG Common femoral artery: 334 cm/s, monophasic Profunda femoris artery: 111 cm/s, monophasic Superficial femoral artery (proximal): 148 cm/s, monophasic Superficial femoral artery (mid): 90 cm/s, Multiphasic Superficial femoral artery (distal): 71 cm/s, Multiphasic Proximal Popliteal artery: 76 cm/s, Multiphasic Mid posterior tibial artery: 85 cm/s, Multiphasic US/US arterial duplex LE RT IMPRESSION: 1. Elevated velocity in the right common femoral artery suggesting a hemodynamically significant stenosis. 2. Monophasic flow throughout the right lower extremity suggesting inflow disease.
== END 2022-05-30 13:42 | disposition home or self-care (01) ==
LOC: HO.US 13:41
PROVIDERS: Visit Provider Internal Medicine
DX: I73.9 Peripheral vascular disease, unspecified (principal)
CPT/HCPCS: 93926

== ENCOUNTER → 2022-06-28 08:06 | Outpatient (BNVA) | payer MEDICARE, SELFPAY | PROVIDERS: PCP Internal Medicine; Referring Provider Internal Medicine; Visit Provider Internal Medicine | DX: I48.0 Paroxysmal atrial fibrillation (principal); I48.92 Unspecified atrial flutter; R00.1 Bradycardia, unspecified; I10 Essential (primary) hypertension; E78.00 Pure hypercholesterolemia, unspecified; I70.201 Unspecified atherosclerosis of native arteries of extremities, right leg | CPT/HCPCS: 99212 ==

== ENCOUNTER 2022-09-26 07:36 | Outpatient (REF) | payer MEDICARE, SELFPAY ==
[2022-09-26 08:32] LABS: Cholesterol 167 mg/dL; HDL Cholesterol 47 mg/dL; LDL Cholesterol Calculated 104 mg/dl; Triglycerides 80 mg/dL
[2022-09-27 10:49] LABS: Alanine Aminotransferase 25 U/L (0-31); Albumin Level 4.1 g/dL (3.5-5.0); Alkaline Phosphatase 120 U/L (39-117); Aspartate Amino Transferase 24 U/L (5-31); Bilirubin Direct 0.2 mg/dL (0.0-0.5); Bilirubin Total 0.6 mg/dL (0.0-1.0); Total Protein 6.6 g/dL (6.5-8.0)
== END 2022-09-26 07:37 | disposition home or self-care (01) ==
LOC: HO.LAB 07:36
PROVIDERS: Visit Provider Internal Medicine
DX: E78.5 Hyperlipidemia, unspecified (principal); I25.10 Atherosclerotic heart disease of native coronary artery without angina pectoris
CPT/HCPCS: 36415; 80061; 80076

== ENCOUNTER 2022-10-03 11:17 | Outpatient (REF) | payer MEDICARE, SELFPAY ==
--- NOTE | ~2022-10-03 | XR_ITS ---
EXAMINATION: XR TIBIA AND FIBULA, RIGHT CLINICAL INFORMATION: Pain COMPARISON: None available. TECHNIQUE: AP and lateral views of the right tibia and fibula were obtained. FINDINGS: The bones and soft tissues are normal. No fracture. No osseous lesions. XR/XR tibia fibula RT 2V IMPRESSION: Normal right tibia and fibula.
== END 2022-10-03 11:18 | disposition home or self-care (01) ==
LOC: HO.XRAY 11:17
PROVIDERS: PCP Internal Medicine; Visit Provider Internal Medicine
DX: M79.661 Pain in right lower leg (principal)
CPT/HCPCS: 73590

== ENCOUNTER 2022-11-20 06:51 | Outpatient (REF) | payer MEDICARE, SELFPAY ==
[2022-11-20 08:00] LABS: Alanine Aminotransferase 29 U/L (0-31); Albumin Level 4.3 g/dL (3.5-5.0); Alkaline Phosphatase 107 U/L (39-117); Anion Gap 16 (12-20); Aspartate Amino Transferase 27 U/L (5-31); Bilirubin Total 0.9 mg/dL (0.0-1.0); Blood Urea Nitrogen 20 mg/dL (9-16); Calcium 10.2 mg/dL (8.4-10.2); Carbon Dioxide 26 mmol/L (22-29); Chloride 104 mmol/L (96-108); Estimated Glomerular Filt Rate 49; Glucose Random 112 mg/dL (60-115); Potassium 4.4 mmol/L (3.3-5.1); Sodium 142 mmol/L (135-145); Total Protein 7.2 g/dL (6.5-8.0)
[2022-11-21 17:13] LABS: Thyroid Peroxidase Antibodies 77 IU/mL (<9)
== END 2022-11-20 06:52 | disposition home or self-care (01) ==
LOC: HO.LAB 06:51
PROVIDERS: PCP Internal Medicine; Visit Provider Internal Medicine
DX: I12.9 Hypertensive chronic kidney disease with stage 1 through stage 4 chronic kidney disease, or unspecified chronic kidney disease (principal); N18.9 Chronic kidney disease, unspecified; E78.00 Pure hypercholesterolemia, unspecified
CPT/HCPCS: 36415; 80053; 86376

== ENCOUNTER → 2022-12-12 09:23 | Outpatient (REF) | payer MEDICARE, SELFPAY ==
--- NOTE | 2022-12-12 09:26 | HM_ITS ---
* Total monitoring time 3 days. * Underlying rhythm is sinus. Average ventricular rate 58/Min. Range 41 to 84/Min. About 57% of the time, rate < 60/Min. * Rare supraventricular ectopy with very brief runs. * Rare ventricular ectopy. * No significant pauses or AV blocks. * No patient markers or events in diary. MTDD
== END ==
LOC: HO.CARD 09:23
PROVIDERS: PCP Internal Medicine; Visit Provider Internal Medicine
DX: R00.2 Palpitations (principal); I48.92 Unspecified atrial flutter
CPT/HCPCS: 93242

== ENCOUNTER → 2022-12-12 09:26 | Outpatient (BNV) | payer MEDICARE, SELFPAY | PROVIDERS: PCP Internal Medicine; Visit Provider Internal Medicine | DX: I47.1 Supraventricular tachycardia (principal) | CPT/HCPCS: 93244 ==

== ENCOUNTER 2022-12-24 06:58 | Outpatient (REF) | payer MEDICARE, SELFPAY ==
[2022-12-24 08:47] LABS: Alanine Aminotransferase 23 U/L (0-31); Alkaline Phosphatase 99 U/L (39-117); Aspartate Amino Transferase 26 U/L (5-31); Bilirubin Direct 0.3 mg/dL (0.0-0.5); Bilirubin Total 0.7 mg/dL (0.0-1.0); Cholesterol 146 mg/dL; HDL Cholesterol 48 mg/dL; LDL Cholesterol Calculated 82 mg/dl; Total Protein 6.9 g/dL (6.5-8.0); Triglycerides 83 mg/dL
== END 2022-12-24 06:59 | disposition home or self-care (01) ==
LOC: HO.LAB 06:58
PROVIDERS: PCP Internal Medicine; Visit Provider Internal Medicine
DX: E78.5 Hyperlipidemia, unspecified (principal)
CPT/HCPCS: 36415; 80061; 80076

== ENCOUNTER 2022-12-27 09:06 | Outpatient (AMB) | payer MEDICARE, SELFPAY ==
[2022-12-27 09:18] VITALS: BP 122/74; PULSE 59; BMI 31.8
--- NOTE | 2022-12-27 09:18 | A.OFFVIS_ITS ---
Intake Vital Signs 12/27/22 09:18 Height 5 ft 4 in Weight 185 lb 3.013 oz BMI 31.8 BP 122/74 Blood Pressure Location Lt brachial Position Sitting Pulse 59 Intake Visit Reasons: 6M holter Intake Note: 6 month follow up w/ EKG Vp Of Marketing Required: No Accompanied by: Self / Same As Patient Allergies succinylcholine [SUCCINYLCHOLINE] Allergy (Severe, Verified 12/27/22 09:20) Muscle cramps Medication List - Last Reconciled 12/27/22 by Seth Harris MD apixaban (Eliquis) 5 mg PO BID atorvastatin 80 mg PO QPM 90 days ciclopirox 0.77% 1 appl See Protocol topical BID losartan 25 mg PO DAILY metoprolol succinate ER (Toprol XL) 12.5 mg (1/2 x 25 mg) PO DAILY HPI HPI Comments History of Present Illness Details Michelle returns for follow-up. She has a history of atrial flutter/fibrillation with rapid rate. However, she also had significant resting bradycardia. Hence was only on a very small dose of beta-blockers. Then referred to EP and underwent atrial fibrillation ablation. After that, it seems that there were some issues in the right groin and she underwent vascular workup and told to have right femoral stenosis. Now seeing vascular surgery at [facility]. From the cardiac standpoint doing well. No new concerns. No angina or shortness of breath or palpitations or anything of that nature. Seems to be getting along okay. [facility] Medical History (Updated 06/28/22 @ 09:04 by Seth Harris MD) Arthritis Atrial arrhythmia Atrial fibrillation with rapid ventricular response Elevated cholesterol Essential hypertension GERD (gastroesophageal reflux disease) History of palpitations History of pneumonia PVC (premature ventricular contraction) Skin cancer Surgical History History of open reduction and internal fixation (ORIF) procedure History of rectal polypectomy Hx of colonoscopy Hx of dilation and curettage Hx of tonsillectomy S/P ablation of atrial fibrillation Family History Father Esophageal cancer Mother No problems noted. Sister No problems noted. Social History Are you a primary career placement specialist to a significant other at home: No Do you presently have visiting nurse or other home services: No Patient Tobacco Use Status: Never used Tobacco Advance Directives Date on File: 12/19/21 service: No Current occupational status: employed Review of Systems Const Denies weakness ENT Denies dizziness Card Denies chest pain, Denies chest pain with activity, Denies syncope, Denies rapid heart rate, Denies pedal edema, Denies edema, Denies leg edema, Denies lightheadedness, Denies palpitations, Denies dyspnea, Denies dyspnea on exertion and Denies orthopnea Resp Denies cough, Denies dyspnea and Denies dyspnea on exertion GI Denies hematochezia and Denies change in stool character Musc Denies abnormal gait, Denies muscle cramps, Denies muscle weakness, Denies numbness, Denies radiating pain into limb and Denies tingling Neuro Denies abnormal gait, Denies dizziness, Denies syncope, Denies numbness, Denies tingling and Denies weakness Endo Denies palpitations Physical Exam Vital Signs: Last Vital Signs Pulse 59 12/27/22 09:18 BP 122/74 12/27/22 09:18 BMI result Body Mass Index 31.8 Const General: comfortable and no acute distress Orientation/consciousness: patient oriented x3 HEENT Other: Unremarkable Head: Yes normal to inspection Neck Neck: Yes normal visual inspection Chest Chest palpation & inspection: normal inspection of the chest Resp Auscultation: clear to auscultation bilaterally Cardio Palpation: normal PMI Heart sounds: S1 normal heart sound present, S2 normal heart sound present, no gallops, no murmurs and no rubs GI Palpation (GI): Soft to palpation Back/Spine/Pelvis Other: unremarkable Skin General skin exam: no rashes or lesions noted Neuro General: patient oriented x3 Extrem General: Yes normal to inspection Psych Mental Status: mental status grossly normal Office Procedures EKG Details: EKG with sinus bradycardia, 59/Min; no significant ST-T changes and otherwise [place]remark[place] [id number], Complete Assessment & Plan Assessment & Plan (1) PAF (paroxysmal atrial fibrillation): Code(s): I48.0 - Paroxysmal atrial fibrillation (2) Paroxysmal atrial flutter: Code(s): I48.92 - Unspecified atrial flutter (3) Sinus bradycardia: Code(s): R00.1 - Bradycardia, unspecified (4) Femoral artery stenosis, right: Code(s): I70.201 - Unspecified atherosclerosis of [place] arteries of extremities, right leg Plan She has sick sinus syndrome with atrial flutter/fibrillation with rapid rates and sinus bradycardia. Status post ablation. Continue low-dose beta-blockers. Continue anticoagulation. With regard to vascular disease, nothing concerning from cardiac. Prior perfusion imaging was unremarkable. Continue statins. Recent LDL 82 mg/dL. Total time spent including review of [facility] records, counseling, documentation, coordination of care-32 minutes. Coding Level of Care Code Est Pt Level 4 (23478) Diagnoses PAF (paroxysmal atrial fibrillation) I48.0 Paroxysmal atrial flutter I48.92 Sinus bradycardia R00.1 Femoral artery stenosis, right I70.201 CPT Codes EKG - CPT: 95083-[id number], Complete ([id number])
== END 2022-12-27 09:36 | disposition home or self-care (01) ==
PROVIDERS: Visit Provider Internal Medicine
DX: I48.0 Paroxysmal atrial fibrillation (principal); I48.92 Unspecified atrial flutter; R00.1 Bradycardia, unspecified; I70.201 Unspecified atherosclerosis of native arteries of extremities, right leg
CPT/HCPCS: 93010; 99214

== ENCOUNTER → 2022-12-27 09:06 | Outpatient (BNVA) | payer MEDICARE, SELFPAY | PROVIDERS: Visit Provider Internal Medicine | DX: I48.0 Paroxysmal atrial fibrillation (principal); I48.92 Unspecified atrial flutter; I70.201 Unspecified atherosclerosis of native arteries of extremities, right leg; R00.1 Bradycardia, unspecified | CPT/HCPCS: 93005; 99212 ==

== ENCOUNTER 2023-04-23 07:12 | Outpatient (REF) | payer MEDICARE, SELFPAY ==
[2023-04-23 07:28] LABS: MANUAL DIFF FLAG NO
[2023-04-23 07:44] LABS: Basophils Absolute Auto 0.1 X10*3/uL (0.0-0.2); Basophils Percent Auto 1.1 % (0-2); Eosinophils Absolute Auto 0.2 X10*3/uL (0.0-0.4); Eosinophils Percent Auto 1.9 % (0-4); Hematocrit 36.7 % (37.0-47.0); Hemoglobin 12.2 g/dl (12.0-16.0); Imm Gran Abs Auto 0.04 X10*3/uL (0.00-0.03); Imm Gran Pct Auto 0.5 % (0.0-0.4); Lymphocytes Absolute Auto 1.5 X10*3/uL (1.2-4.9); Lymphocytes Percent Auto 18.4 % (20-40); Mean Corpuscular HGB Conc 33.2 g/dl (31.0-35.0); Mean Corpuscular Hemoglobin 29.8 pg (27.0-33.0); Mean Corpuscular Volume 89.5 fL (80.0-98.0); Monocytes Absolute Auto 0.6 X10*3/uL (0.1-1.2); Monocytes Percent Auto 6.9 % (2-11); Neutrophils Absolute Auto 5.9 x10*3/uL (2.0-8.3); Neutrophils Percent Auto 71.2 % (45-73); Platelet Count 443 X10*3/uL (160-400); Red Cell Distribution Width 12.2 % (11.0-16.0); White Blood Count 8.3 X10*3/uL (4.8-10.8)
[2023-04-23 08:20] LABS: Alanine Aminotransferase 34 U/L (0-31); Albumin Level 3.9 g/dL (3.5-5.0); Alkaline Phosphatase 165 U/L (39-117); Anion Gap 14 (12-20); Aspartate Amino Transferase 28 U/L (5-31); Bilirubin Total 0.5 mg/dL (0.0-1.0); Blood Urea Nitrogen 15 mg/dL (9-16); Calcium 9.7 mg/dL (8.4-10.2); Carbon Dioxide 27 mmol/L (22-29); Chloride 104 mmol/L (96-108); Estimated Glomerular Filt Rate 52; Glucose Random 116 mg/dL (60-115); Potassium 4.1 mmol/L (3.3-5.1); Sodium 141 mmol/L (135-145); Total Protein 7.3 g/dL (6.5-8.0)
[2023-04-23 08:29] LABS: Vitamin D 25-OH Total 44.5 ng/mL (>30)
== END 2023-04-23 07:13 | disposition home or self-care (01) ==
LOC: HO.LAB 07:12
PROVIDERS: PCP Internal Medicine; Visit Provider Internal Medicine
DX: I73.9 Peripheral vascular disease, unspecified (principal); E55.9 Vitamin D deficiency, unspecified; E78.00 Pure hypercholesterolemia, unspecified; I12.9 Hypertensive chronic kidney disease with stage 1 through stage 4 chronic kidney disease, or unspecified chronic kidney disease; N18.9 Chronic kidney disease, unspecified
CPT/HCPCS: 36415; 80053; 82306; 85025

== ENCOUNTER 2023-05-10 13:06 | Outpatient (REF) | payer MEDICARE, SELFPAY ==
[2023-05-10 13:16] LABS: MANUAL DIFF FLAG NO
[2023-05-10 13:38] LABS: Basophils Absolute Auto 0.1 X10*3/uL (0.0-0.2); Basophils Percent Auto 0.9 % (0-2); Eosinophils Absolute Auto 0.1 X10*3/uL (0.0-0.4); Hematocrit 36.6 % (37.0-47.0); Hemoglobin 11.8 g/dl (12.0-16.0); Imm Gran Abs Auto 0.03 X10*3/uL (0.00-0.03); Imm Gran Pct Auto 0.3 % (0.0-0.4); Lymphocytes Absolute Auto 1.5 X10*3/uL (1.2-4.9); Mean Corpuscular HGB Conc 32.2 g/dl (31.0-35.0); Mean Corpuscular Hemoglobin 29.1 pg (27.0-33.0); Mean Corpuscular Volume 90.4 fL (80.0-98.0); Mean Platelet Volume 9.9 fL (9.4-12.3); Monocytes Absolute Auto 0.6 X10*3/uL (0.1-1.2); Monocytes Percent Auto 7.2 % (2-11); Neutrophils Absolute Auto 6.5 x10*3/uL (2.0-8.3); Neutrophils Percent Auto 73.6 % (45-73); Platelet Count 453 X10*3/uL (160-400); Red Blood Count 4.05 X10*6/uL (4.20-5.50); Red Cell Distribution Width 12.4 % (11.0-16.0); White Blood Count 8.9 X10*3/uL (4.8-10.8)
[2023-05-10 14:20] LABS: Alanine Aminotransferase 34 U/L (0-31); Albumin Level 3.9 g/dL (3.5-5.0); Alkaline Phosphatase 168 U/L (39-117); Anion Gap 12 (12-20); Aspartate Amino Transferase 34 U/L (5-31); Bilirubin Total 0.4 mg/dL (0.0-1.0); Blood Urea Nitrogen 11 mg/dL (9-16); C Reactive Protein 1.86 mg/dL (< or = 0.50); Calcium 9.9 mg/dL (8.4-10.2); Carbon Dioxide 29 mmol/L (22-29); Chloride 103 mmol/L (96-108); Estimated Glomerular Filt Rate 59; Glucose Random 106 mg/dL (60-115); Potassium 4.1 mmol/L (3.3-5.1); Sodium 140 mmol/L (135-145); Total Protein 7.5 g/dL (6.5-8.0)
== END 2023-05-10 13:07 | disposition home or self-care (01) ==
LOC: HO.LAB 13:06
PROVIDERS: PCP Internal Medicine; Visit Provider Internal Medicine
DX: R10.9 Unspecified abdominal pain (principal); R79.89 Other specified abnormal findings of blood chemistry; I12.9 Hypertensive chronic kidney disease with stage 1 through stage 4 chronic kidney disease, or unspecified chronic kidney disease; N18.9 Chronic kidney disease, unspecified
CPT/HCPCS: 36415; 80053; 82550; 85025; 86140

== ENCOUNTER 2023-05-16 13:02 | Outpatient (REF) | payer MEDICARE, SELFPAY ==
--- NOTE | ~2023-05-16 | CT_ITS ---
EXAMINATION: CT ABDOMEN AND PELVIS WITHOUT CONTRAST CLINICAL INFORMATION: Abdominal pain. Rule out diverticulitis. COMPARISON: Previous CT of the abdomen and pelvis June 2015 and renal ultrasound most recent May 2019 TECHNIQUE: Multidetector volumetric imaging was performed from the superior aspect of the liver through the pubic symphysis. Sagittal and coronal reformatted images were obtained on the technologist's workstation. This CT examination was performed using dose optimization techniques as appropriate, variously including the following: *Automated exposure control *Adjustment of mA and/or kV according to patient size (this includes techniques or standardized protocols for targeted exams where dose is matched to indication/reason for exam; i.e. extremities or head) *Use of iterative reconstruction technique DLP: 532 mGy-cm FINDINGS: LUNG BASES: The visualized lung bases are unremarkable. LIVER, GALLBLADDER, AND BILIARY TREE: The liver is normal in size, shape, and attenuation. No focal hepatic lesion or biliary ductal dilatation is present. The gallbladder is unremarkable with no evidence of radiopaque gallstones, gallbladder wall thickening, or obvious pericholecystic inflammatory changes. PANCREAS: Atrophic changes or fatty infiltration of the pancreas. SPLEEN: Unremarkable. ADRENAL GLANDS: Unremarkable. KIDNEYS AND URETERS: The kidneys are normal in size, shape, and attenuation. No hydronephrosis, hydroureter, or calculi seen. Right renal cyst. No imaging follow-up recommended. No perinephric stranding. BLADDER: Unremarkable. GASTROINTESTINAL TRACT: There is diverticulosis of the colon. There is mild wall thickening of the distal sigmoid colon in the pelvis. There is a small amount of fluid and surrounding fat stranding. Appearance is questionable for mild sigmoid diverticulitis. Small bowel diverticulum in the distal duodenum. axial image 37 series 4. Small and large bowel is otherwise normal. The appendix is not definitely seen. No evidence of appendicitis. The stomach is normal. ABDOMINAL WALL: No significant hernia is appreciated. LYMPH NODES: There is some thickening of the anterior peritoneum or greater omentum in the lower pelvis axial image 54 series 3. There is also question of small peritoneal nodules in the left upper abdomen for example axial image 29 series 3 This is new from 2016 exam. No ascites. VASCULAR: Atherosclerotic disease. No aneurysm. PELVIC VISCERA: Unremarkable. OSSEOUS STRUCTURES: Degenerative changes of the spine. CT/CT abdomen pelvis wo IV con IMPRESSION: Diverticulosis and probable sigmoid diverticulitis. There is new inflammatory change of the anterior peritoneal fat in the lower abdomen/upper pelvis possibly involving the greater omentum and in the left upper abdomen. Neoplastic peritoneal disease cannot be entirely excluded and imaging follow-up recommended. Findings will be communicated by the [employer] workflow mixer machine feeder Noah guidelines were followed.
[2023-05-16] MEDS: Barium Sulfate Oral (Vanilla) 450 ML ORAL.SUSP 900 ML PO (15:29)
== END 2023-05-16 13:03 | disposition home or self-care (01) ==
LOC: HO.CT 13:02
PROVIDERS: PCP Internal Medicine; Visit Provider Internal Medicine
DX: R10.84 Generalized abdominal pain (principal)
CPT/HCPCS: 74176

== ENCOUNTER 2023-06-01 07:22 | Emergency (ER) | payer MEDICARE, SELFPAY ==
[2023-06-01 07:33] VITALS: BP 156/57; PULSE 63; RESP 16; TEMP 36.5; O2SAT 98; BMI 30.6
--- NOTE | 2023-06-01 07:42 | ED.GENADULT ---
HPI - General Adult General Chief complaint: Dental/Oral Stated complaint: mouth infection Time Seen by Provider: 06/01/23 07:40 Source: patient Mode of arrival: ambulatory Limitations: no limitations History of Present Illness HPI narrative: 77-year-old female with a history of AFib on Eliquis, hypertension, hyperlipidemia, diverticulitis currently on Augmentin presents to the ER with complaints discoloration to her tongue with grainy feeling noticed last night. No pain, fevers, chills. Patient feels her abdominal pain is improving on her Augmentin. No reports of vomiting or diarrhea. Related Data Home Medications Medication Instructions Recorded Confirmed ciclopirox 0.77 % topical cream 1 appl topical BID 12/19/21 12/27/22 losartan 25 mg tablet 25 mg PO DAILY 01/22/22 12/27/22 Previous Rx's Medication Instructions Recorded apixaban 5 mg tablet (Eliquis) 5 mg PO BID #60 tabs 12/19/21 metoprolol succinate 25 mg 12.5 mg (1/2 x 25 mg) PO DAILY #30 12/19/21 tablet,extended release 24 hr tabs (Toprol XL) atorvastatin 80 mg tablet 80 mg PO QPM 90 days #90 tabs 09/27/22 nystatin 100,000 unit/mL oral 400,000 unit (4 mL) PO TID 14 days 06/01/23 suspension #168 mL Allergies Allergy/AdvReac Type Severity Reaction Status Date / Time succinylcholine AdvReac Severe Muscle Verified 06/01/23 07:38 [SUCCINYLCHOLINE] cramps ciprofloxacin AdvReac Nausea and Verified 06/01/23 07:38 Vomiting metronidazole [From Flagyl] AdvReac Nausea and Verified 06/01/23 07:38 Vomiting Review of Systems Review of Systems: Yes all other systems are reviewed and are negative Constitutional: Constitutional: Reports no additional constitutional complaints, Denies body ache(s), Denies chills, Denies fever(s), Denies headache(s) and Denies weakness Eyes: Eyes: Reports no additional eye complaints and Denies change in vision ENT: Reports system reviewed and no additional complaints, except as documented, Denies dizziness, Denies headache(s), Denies nasal congestion, Denies nasal discharge and Denies neck pain Cardiovascular: Cardiovascular: Reports no additional cardiovascular complaints, Denies chest pain, Denies leg edema and Denies dyspnea Respiratory: Respiratory: Reports no additional respiratory complaints, Denies cough and Denies dyspnea Gastrointestinal: Gastrointestinal: Reports no additional gastrointestinal complaints, Denies abdominal pain, Denies diarrhea, Denies nausea and Denies vomiting Genitourinary: Genitourinary: Reports no additional female genitourinary complaints and Denies urinary incontinence Musculoskeletal: Musculoskeletal: Reports no additional musculoskeletal complaints, Denies back pain, Denies arthralgias, Denies joint swelling, Denies neck pain, Denies numbness and Denies tingling Integumentary/Breasts: Skin/Breast: Reports system reviewed and no additional complaints, except as docu and Denies rash Neurologic: Reports system reviewed and no additional complaints, except as documented, Denies Abnormal speech present, Denies dizziness, Denies headache(s), Denies numbness, Denies tingling and Denies weakness PMFSH Past Medical History Attestation statement: The following information was validated with the patient. Source: old records reviewed and nursing notes reviewed Medical History Atrial fibrillation with rapid ventricular response History of pneumonia Skin cancer Arthritis GERD (gastroesophageal reflux disease) Elevated cholesterol History of palpitations PVC (premature ventricular contraction) Essential hypertension Atrial arrhythmia Surgical History S/P ablation of atrial fibrillation History of rectal polypectomy Hx of dilation and curettage Hx of colonoscopy History of open reduction and internal fixation (ORIF) procedure Hx of tonsillectomy Family History Family History Father Esophageal cancer Mother No problems noted. Sister No problems noted. Social History Social History Are you a primary critical care technician to a significant other at home: No Do you presently have visiting nurse or other home services: No Patient Tobacco Use Status: Never used Tobacco Advance Directives: Yes Advance Directives on File: Yes Advance Directives Date on File: 12/19/21 service: No Current occupational status: employed Physical Exam ED Vital Signs: Vital Signs - 24 hr 06/01/23 07:33 Temperature 97.7 F Pulse Rate 63 Respiratory Rate 16 Blood Pressure 156/57 H Pulse Oximetry 98 Oxygen Delivery Method Room Air BMI result Body Mass Index 30.6 Const General: cooperative, healthy appearing, comfortable and no acute distress Orientation/consciousness: patient oriented x3 Limitations: no limitations HENMT Head: Yes normal to inspection Ears: hearing grossly normal bilaterally General nose exam: Normal external nose present Face and sinus: Yes normal facial exam Mouth: Normal oral and palatal mucosa present and tongue abnormal with white coating Throat: Yes posterior oropharynx normal Eyes General: appearance normal, both eyes and all related structures Pupils: Equal, round and reactive pupils present Neck Neck: Yes normal visual inspection, Yes full ROM, Yes no lymphadenopathy and Yes no meningeal signs Chest Chest palpation & inspection: normal inspection of the chest Resp Effort & Inspection: normal respiratory effort Auscultation: clear to auscultation bilaterally Cardio Rate: regular rate Rhythm: regular rhythm Peripheral pulses: Peripheral pulses 2+ throughout GI Inspection: Yes normal to inspection Palpation (GI): Soft to palpation and nontender Auscultation: normal bowel sounds Back/Spine/Pelvis Thoracic/Lumbar Spine: thoracic and lumbar spine normal to inspection Skin General skin exam: no rashes or lesions noted Neuro General: patient oriented x3, no meningeal signs, no focal motor deficits and normal sensation to monofilament Cranial nerves: Yes Equal, round and reactive pupils present Cognition (Neuro): normal cognition Speech: No Abnormal speech present Gait exam (Neuro): Normal gait present Motor exam (neuro): 5/5 motor strength present throughout Extrem General: Yes normal to inspection Medical Decision Making Medical Decision Making MDM Narrative: 77-year-old female with a history of AFib on Eliquis, hypertension, hyperlipidemia, diverticulitis currently on Augmentin presents to the ER with complaints discoloration to her tongue with grainy feeling noticed last night.? No pain, fevers, chills.? Patient feels her abdominal pain is improving on her Augmentin.? No reports of vomiting or diarrhea. +thrush on exam. Will treat with nystatin. Patient tolerating p.o. with no difficult Differential Diagnosis Differential Diagnoses: The differential diagnosis associated with the presentation includes thrush low concern for SJS, TEN Admission/Observation Consideration of admission/observation: Escalation of care including admission/observation considered +thrush on exam. not c/w with sjs/ten or FTT/inability to tolerate PO requiring IVF and admission Prescription Management I considered prescription management with: Antibiotic Discharge Plan Discharge Clinical Impression: Thrush Patient Disposition: Home, Self-Care Instructions: Oral Candidiasis (ED) Additional Instructions: Finish the antibiotic Start the nystatin and take as instructed. Follow up with your PCP for any continued symptoms Prescriptions: New nystatin 100,000 unit/mL suspension 400,000 unit PO TID 14 Days Qty: 168 0RF Rx Instructions: Swish and spit No Action atorvastatin 80 mg tablet 80 mg PO QPM 90 Days Qty: 90 3RF ciclopirox 0.77 % cream 1 appl topical BID Protocol: Apply to: Apply to: FEET Eliquis 5 mg tablet 5 mg PO BID Qty: 60 0RF metoprolol succinate [Toprol XL] 25 mg tablet extended release 24 hr 12.5 mg PO DAILY Qty: 30 0RF losartan 25 mg tablet 25 mg PO DAILY Referrals: Wojciech Billings MD [Primary Care Provider] - 10 days
== END 2023-06-01 08:10 | disposition home or self-care (01) ==
PROVIDERS: Emergency Provider Student in an Organized Health Care Education/Training Program; PCP Internal Medicine
DX: B37.0 Candidal stomatitis (principal); I10 Essential (primary) hypertension; I48.91 Unspecified atrial fibrillation; Z79.01 Long term (current) use of anticoagulants
CPT/HCPCS: 99282; 99283

== ENCOUNTER 2023-06-19 13:37 | Outpatient (REF) | payer MEDICARE, SELFPAY ==
[2023-06-19 13:56] LABS: MANUAL DIFF FLAG NO
[2023-06-19 14:34] LABS: Basophils Absolute Auto 0.1 X10*3/uL (0.0-0.2); Basophils Percent Auto 0.5 % (0-2); Eosinophils Absolute Auto 0.1 X10*3/uL (0.0-0.4); Eosinophils Percent Auto 0.4 % (0-4); Hematocrit 29.6 % (37.0-47.0); Hemoglobin 9.3 g/dl (12.0-16.0); Imm Gran Abs Auto 0.17 X10*3/uL (0.00-0.03); Imm Gran Pct Auto 1.2 % (0.0-0.4); Lymphocytes Absolute Auto 1.5 X10*3/uL (1.2-4.9); Mean Corpuscular HGB Conc 31.4 g/dl (31.0-35.0); Mean Corpuscular Hemoglobin 27.7 pg (27.0-33.0); Mean Corpuscular Volume 88.1 fL (80.0-98.0); Mean Platelet Volume 9.7 fL (9.4-12.3); Monocytes Absolute Auto 1.4 X10*3/uL (0.1-1.2); Monocytes Percent Auto 9.6 % (2-11); Neutrophils Absolute Auto 11.5 x10*3/uL (2.0-8.3); Neutrophils Percent Auto 78.3 % (45-73); Platelet Count 728 X10*3/uL (160-400); Red Blood Count 3.36 X10*6/uL (4.20-5.50); Red Cell Distribution Width 13.2 % (11.0-16.0); White Blood Count 14.6 X10*3/uL (4.8-10.8)
[2023-06-19 15:13] LABS: Alanine Aminotransferase 86 U/L (0-31); Albumin Level 3.1 g/dL (3.5-5.0); Alkaline Phosphatase 447 U/L (39-117); Anion Gap 15 (12-20); Aspartate Amino Transferase 72 U/L (5-31); Bilirubin Total 0.6 mg/dL (0.0-1.0); Blood Urea Nitrogen 11 mg/dL (9-16); C Reactive Protein 20.01 mg/dL (< or = 0.50); Calcium 9.9 mg/dL (8.4-10.2); Carbon Dioxide 28 mmol/L (22-29); Chloride 97 mmol/L (96-108); Estimated Glomerular Filt Rate 57; Glucose Random 138 mg/dL (60-115); Potassium 4.1 mmol/L (3.3-5.1); Sodium 136 mmol/L (135-145); Total Protein 7.4 g/dL (6.5-8.0)
[2023-06-19 15:32] LABS: Carcinoembryonic Antigen < 1.73 ng/mL
== END 2023-06-19 13:38 | disposition home or self-care (01) ==
LOC: HO.LAB 13:37
PROVIDERS: PCP Internal Medicine; Visit Provider Internal Medicine
DX: R93.5 Abnormal findings on diagnostic imaging of other abdominal regions, including retroperitoneum (principal); R61 Generalized hyperhidrosis; R63.4 Abnormal weight loss
CPT/HCPCS: 36415; 80053; 82378; 82550; 85025; 86140

== ENCOUNTER 2023-06-21 13:51 | Outpatient (REF) | payer MEDICARE, SELFPAY ==
[2023-06-22 12:19] LABS: CA-125 190 U/mL (<35)
[2023-06-24 15:33] LABS: Carbohydrate Antigen 19-9 3 U/mL (<34)
== END 2023-06-21 13:52 | disposition home or self-care (01) ==
LOC: HO.LAB 13:51
PROVIDERS: PCP Internal Medicine; Visit Provider Internal Medicine
DX: R93.5 Abnormal findings on diagnostic imaging of other abdominal regions, including retroperitoneum (principal); D64.9 Anemia, unspecified; R94.5 Abnormal results of liver function studies
CPT/HCPCS: 36415; 86301; 86304

== ENCOUNTER 2023-06-25 11:00 | Outpatient (REF) | payer MEDICARE, SELFPAY ==
--- NOTE | ~2023-06-25 | CT_ITS ---
EXAMINATION: CT ABDOMEN AND PELVIS WITH CONTRAST CLINICAL INFORMATION: Elevated calcium COMPARISON: Previous CT of the abdomen and pelvis May 2023 TECHNIQUE: Multidetector volumetric images were obtained from the superior aspect of the liver through the pubic symphysis following administration 85 mL of Omnipaque 350 intravenous contrast. Sagittal and coronal reformatted images were obtained on the technologist's workstation. Oral contrast: Yes This CT examination was performed using dose optimization techniques as appropriate, variously including the following: *Automated exposure control *Adjustment of mA and/or kV according to patient size (this includes techniques or standardized protocols for targeted exams where dose is matched to indication/reason for exam; i.e. extremities or head) *Use of iterative reconstruction technique DLP: 464 mGy-cm FINDINGS: LUNG BASES: The visualized lung bases are unremarkable. LIVER, GALLBLADDER, AND BILIARY TREE: The liver is normal in size, shape, and attenuation. No focal hepatic lesion or biliary ductal dilatation is present. The gallbladder is contracted. There are small gallstones in the gallbladder. PANCREAS: There is fatty infiltration or replacement of the majority of the pancreas. There is residual soft tissue seen in the tail not appreciably changed from September 2015 and therefore probably represents residual pancreatic tissue as opposed to a mass. SPLEEN: Unremarkable. ADRENAL GLANDS: Unremarkable. KIDNEYS AND URETERS: The kidneys are normal in size, shape, and attenuation. No hydronephrosis, hydroureter, or calculi seen. 4 cm cyst in the upper pole of the right kidney. No imaging follow-up recommended. No perinephric stranding. BLADDER: Unremarkable. GASTROINTESTINAL TRACT: There is severe diverticular disease of the distal colon. There is a 1 cm filling defect in the third portion of the duodenum axial image 38 series 3. There are also multiple filling defects seen in the stomach. It is uncertain whether this is related to something patient has. Correlation with endoscopy upper GI recommended. The appendix is not seen. There is increasing peritoneal disease under the left hemidiaphragm, in the region of the greater omentum and left paracolic gutter. There is a new peritoneal soft tissue nodule in the region of the greater omentum just deep to the left anterior abdominal wall measuring 0.7 x 1.1 cm axial image 55 series 3. There is no ascites. ABDOMINAL WALL: No significant hernia is appreciated. LYMPH NODES: No enlarged lymph nodes. VASCULAR: Unremarkable. PELVIC VISCERA: 8 mm low-attenuation no adnexal mass. OSSEOUS STRUCTURES: Degenerative changes of the right. No definite lytic or sclerotic bone centimeter lucency in the right anterior L4 vertebral body. CT/CT abdomen pelvis w IV con IMPRESSION: Interval increase in peritoneal disease from May 2023 exam. Filling defects in the stomach and third portion of the duodenum. It is uncertain whether this is related to something the patient has ingested. Follow-up endoscopy or upper GI recommended. Severe diverticular disease of the distal colon. Atrophic changes of the pancreas. Residual solid tissue in the tail of the pancreas similar to older exam September 2015. This would favor residual pancreatic tissue as opposed to mass. Low-attenuation in the central uterus questionable for endometrial fluid or thickening. Follow-up pelvic ultrasound recommended. Contracted gallbladder with gallstones. Question 1 cm lucent lesion in the right anterior L4 vertebral body. Fleischner guidelines were followed.
[2023-06-25 12:29] LABS: Basophils Absolute Auto 0.1 X10*3/uL (0.0-0.2); Basophils Percent Auto 0.5 % (0-2); Eosinophils Percent Auto 0.2 % (0-4); Hematocrit 28.8 % (37.0-47.0); Hemoglobin 9.1 g/dl (12.0-16.0); Imm Gran Abs Auto 0.17 X10*3/uL (0.00-0.03); Lymphocytes Absolute Auto 1.1 X10*3/uL (1.2-4.9); Lymphocytes Percent Auto 6.4 % (20-40); MANUAL DIFF FLAG SCAN; Mean Corpuscular HGB Conc 31.6 g/dl (31.0-35.0); Mean Corpuscular Hemoglobin 27.4 pg (27.0-33.0); Mean Corpuscular Volume 86.7 fL (80.0-98.0); Mean Platelet Volume 9.7 fL (9.4-12.3); Monocytes Absolute Auto 1.6 X10*3/uL (0.1-1.2); Monocytes Percent Auto 9.7 % (2-11); Neutrophils Absolute Auto 13.9 x10*3/uL (2.0-8.3); Neutrophils Percent Auto 82.2 % (45-73); Platelet Count 848 X10*3/uL (160-400); Red Blood Count 3.32 X10*6/uL (4.20-5.50); Red Cell Distribution Width 13.6 % (11.0-16.0); SCAN SMEAR FLAG 1; White Blood Count 16.9 X10*3/uL (4.8-10.8)
[2023-06-25 12:56] LABS: Alanine Aminotransferase 103 U/L (0-31); Albumin Level 2.9 g/dL (3.5-5.0); Alkaline Phosphatase 557 U/L (39-117); Anion Gap 15 (12-20); Aspartate Amino Transferase 111 U/L (5-31); Bilirubin Total 0.7 mg/dL (0.0-1.0); Blood Urea Nitrogen 11 mg/dL (9-16); Calcium 10.4 mg/dL (8.4-10.2); Carbon Dioxide 27 mmol/L (22-29); Chloride 95 mmol/L (96-108); Estimated Glomerular Filt Rate 48; Glucose Random 122 mg/dL (60-115); Potassium 4.4 mmol/L (3.3-5.1); SLIDE REVIEW VERIFIED; Sodium 133 mmol/L (135-145); Total Protein 7.5 g/dL (6.5-8.0)
[2023-06-25] MEDS: iohexoL 350 MG/ML 100 ML INFUS..BTL IV (15:03)
[2023-06-25] MEDS: Barium Sulfate Oral (Berry) 450 ML ORAL.SUSP 900 ML PO (15:03)
== END 2023-06-25 11:01 | disposition home or self-care (01) ==
LOC: HO.LAB 11:00
PROVIDERS: PCP Internal Medicine; Visit Provider Internal Medicine
DX: D64.9 Anemia, unspecified (principal); I48.0 Paroxysmal atrial fibrillation; I10 Essential (primary) hypertension; E83.52 Hypercalcemia
CPT/HCPCS: 36415; 74177; 80053; 85025

== ENCOUNTER 2023-07-01 10:59 | Emergency (ER) | payer MEDICARE, SELFPAY ==
--- NOTE | ~2023-07-01 | XR_ITS ---
EXAMINATION: XR CHEST CLINICAL INFORMATION: Elevated BNP COMPARISON: Chest x-ray 12/18/2021. TECHNIQUE: 2 views of the chest were obtained. FINDINGS: The lungs are well-expanded and clear. The heart size is borderline enlarged with increased pulmonary vascularity question mild congestion. No gross bony abnormality seen. XR/XR chest 2V IMPRESSION: Borderline cardiomegaly with mild pulmonary vascular congestion.
--- NOTE | ~2023-07-01 | US_ITS ---
EXAMINATION: US VENOUS ULTRASOUND WITH DOPPLER LOWER EXTREMITY, BILATERAL CLINICAL INFORMATION: Edema. COMPARISON: None available. TECHNIQUE: Ultrasound of the deep veins is performed from the hip to the calf with compression sonography and color and pulse Doppler assessment. Spectral analysis with color-flow imaging is performed. FINDINGS: RIGHT: There is normal venous compression and respiratory variation and augmented flow. The visualized common femoral vein, superficial femoral vein, profunda femoral vein, popliteal vein, and the trifurcation region shows no evidence of deep venous thrombosis. There is no significant popliteal fossa cyst. LEFT: There is normal venous compression and respiratory variation and augmented flow. The visualized common femoral vein, superficial femoral vein, profunda femoral vein, popliteal vein, and the trifurcation region shows no evidence of deep venous thrombosis. There is no significant popliteal fossa cyst. If the patient's symptoms persist, followup ultrasound in 5 days 7 days might be of value to exclude proximal propagation from a non-visualized calf vein. US/US venous duplex LE BI IMPRESSION: No DVT demonstrated in the bilateral lower extremities.
[2023-07-01 11:06] VITALS: BP 122/78; PULSE 78; RESP 20; TEMP 36.6; O2SAT 98; BMI 29.7
--- NOTE | 2023-07-01 11:06 | ED_ITS ---
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 Patient denies any chest pain, shortness of breath. Patient reports she has an appointment with [facility] centrifuge separator operator oncology on Saturday for further workup. She denies any black or bloody stools, hematuria, vomiting blood, abdominal pain, fevers, chills, redness or swelling of the legs. Of note, does have some LE at baseline per patient but this is worsened Related Data Home Medications Medication Instructions Recorded Confirmed ciclopirox 0.77 % topical cream 1 appl topical BID 12/19/21 12/27/22 losartan 25 mg tablet 25 mg PO DAILY 01/22/22 12/27/22 Previous Rx's Medication Instructions Recorded apixaban 5 mg tablet (Eliquis) 5 mg PO BID #60 tabs 12/19/21 metoprolol succinate 25 mg 12.5 mg (1/2 x 25 mg) PO DAILY #30 12/19/21 tablet,extended release 24 hr tabs (Toprol XL) atorvastatin 80 mg tablet 80 mg PO QPM 90 days #90 tabs 09/27/22 nystatin 100,000 unit/mL oral 400,000 unit (4 mL) PO TID 14 days 06/01/23 suspension #168 mL furosemide 20 mg tablet 20 mg PO DAILY #30 tabs 07/01/23 Allergies Allergy/AdvReac Type Severity Reaction Status Date / Time succinylcholine AdvReac Severe Muscle Verified 07/01/23 11:05 [SUCCINYLCHOLINE] cramps ciprofloxacin AdvReac Nausea and Verified 07/01/23 11:05 Vomiting metronidazole [From Flagyl] AdvReac Nausea and Verified 07/01/23 11:05 Vomiting Review of Systems 2 Review of Systems: Yes all other systems are reviewed and are negative Constitutional: Constitutional: Reports no additional constitutional complaints, Denies body ache(s), Denies chills, Denies fever(s), Denies headache(s) and Denies weakness Eyes: Eyes: Reports no additional eye complaints and Denies change in vision ENT: Reports system reviewed and no additional complaints, except as documented, Denies dizziness, Denies headache(s), Denies nasal congestion, Denies nasal discharge and Denies neck pain Cardiovascular: Cardiovascular: Reports no additional cardiovascular complaints, Denies chest pain, Reports leg edema and Denies dyspnea Respiratory: Respiratory: Reports no additional respiratory complaints, Denies cough and Denies dyspnea Gastrointestinal: Gastrointestinal: Reports no additional gastrointestinal complaints, Denies abdominal pain, Denies diarrhea, Denies nausea and Denies vomiting Genitourinary: Genitourinary: Reports no additional female genitourinary complaints and Denies urinary incontinence Musculoskeletal: Musculoskeletal: Reports no additional musculoskeletal complaints, Denies back pain, Denies arthralgias, Denies joint swelling, Denies neck pain, Denies numbness and Denies tingling Integumentary/Breasts: Skin/Breast: Reports system reviewed and no additional complaints, except as docu and Denies rash Neurologic: Reports system reviewed and no additional complaints, except as documented, Denies Abnormal speech present, Denies dizziness, Denies headache(s), Denies numbness, Denies tingling and Denies weakness PMFSH Past Medical History Attestation statement: The following information was validated with the patient. Source: old records reviewed and nursing notes reviewed Onset Date is defined in the Problem List Problems that require an onset date and time if occurred within 24 hrs of arrival to the ED Aortic Dissection and Rupture; Neurologic impairment; Cardiopulmonary Arrest; Endotracheal Intubation; Insertion or Replacement of Mechanical Circulatory Assist Device Medical History Atrial fibrillation with rapid ventricular response History of pneumonia Skin cancer Arthritis GERD (gastroesophageal reflux disease) Elevated cholesterol History of palpitations PVC (premature ventricular contraction) Essential hypertension Atrial arrhythmia Surgical History S/P ablation of atrial fibrillation History of rectal polypectomy Hx of dilation and curettage Hx of colonoscopy History of open reduction and internal fixation (ORIF) procedure Hx of tonsillectomy Family History Family History Father Esophageal cancer Mother No problems noted. Sister No problems noted. Social History Social History Are you a primary animal care supervisor to a significant other at home: No Do you presently have visiting nurse or other home services: No Patient Tobacco Use Status: Never used Tobacco Smoked in Last 30 Days: No Use of substances other than those prescribed or required for medical reasons: No Advance Directives: Yes Advance Directives on File: Yes Advance Directives Date on File: 12/19/21 service: No Current occupational status: employed Physical Exam ED Vital Signs: Vital Signs - 24 hr 07/01/23 11:06 07/01/23 15:08 07/01/23 17:25 Temperature 98 F 97.9 F 97.7 F Pulse Rate 78 84 83 Respiratory Rate 20 14 15 Blood Pressure 122/78 132/56 L 153/77 H Pulse Oximetry 98 98 100 Oxygen Delivery Method Room Air Room Air Room Air 07/01/23 18:18 07/01/23 19:38 Temperature 98.2 F 98.0 F Pulse Rate 77 89 Respiratory Rate 16 16 Blood Pressure 137/60 132/47 L Pulse Oximetry 100 97 Oxygen Delivery Method Room Air Room Air BMI result Body Mass Index 29.7 Const General: cooperative, healthy appearing, comfortable and no acute distress Orientation/consciousness: patient oriented x3 Limitations: no limitations HENMT Head: Yes normal to inspection Ears: hearing grossly normal bilaterally General nose exam: Normal external nose present Face and sinus: Yes normal facial exam Mouth: Normal oral and palatal mucosa present Throat: Yes posterior oropharynx normal Eyes General: appearance normal, both eyes and all related structures Pupils: Equal, round and reactive pupils present Neck Neck: Yes normal visual inspection Chest Chest palpation & inspection: normal inspection of the chest Resp Effort & Inspection: normal respiratory effort Auscultation: clear to auscultation bilaterally Cardio Rate: regular rate Rhythm: regular rhythm Peripheral pulses: Peripheral pulses 2+ throughout GI Inspection: Yes normal to inspection Palpation (GI): Soft to palpation and nontender Auscultation: normal bowel sounds Back/Spine/Pelvis Thoracic/Lumbar Spine: thoracic and lumbar spine normal to inspection Skin General skin exam: no rashes or lesions noted Neuro General: patient oriented x3, no focal motor deficits and normal sensation to monofilament Cranial nerves: Yes Equal, round and reactive pupils present Cognition (Neuro): normal cognition Speech: No Abnormal speech present Gait exam (Neuro): Normal gait present Motor exam (neuro): 5/5 motor strength present throughout Extrem Other: There is 1 + edema to bilateral LE which does not extend over the knees General: Yes normal to inspection and Yes no calf tenderness Course Course Course Narrative: RME performed by Winnie Jeong PA-C. Patient is a 78 year old assigned female at presenting to the emergency department with increased edema and weakness. 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 Detailed physical exam and review of systems are deferred to the referral manager. Labs ordered. Patient placed back in the waiting room pending room availability and results. 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 Patient denies any chest pain, shortness of breath. Patient reports she has an appointment with [facility] centrifuge separator operator oncology on Saturday for further workup. She denies any black or bloody stools, hematuria, vomiting blood, abdominal pain, fevers, chills, redness or swelling of the legs. 1+ edema pitting bilateral which does not extend over the knee. No pain on exam Exam otherwise benign VSS WIll obtain labs, EKG, CXR, US Differential Diagnosis Differential Diagnoses: The differential diagnosis associated with the presentation includes Electrolyte abnormality, anemia, DVT, CHF No evidence cellulitis, necrotizing fasciitis, compartment syndrome Admission/Observation Consideration of admission/observation: Escalation of care including admission/observation considered Patient has mildly elevated BNP with pulmonary vascular congestion on chest x- ray consistent with new congestive heart failure. She has no complaints of chest pain, shortness of breath or orthopnea. Her blood pressure is stable. Her EKG is nonischemic with flat troponins. 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 I do not believe that she needs admission for further management Lab Data [facility] Lab Attestation statement: I reviewed the patient's lab results. Labs show leukocytosis unchanged from baseline, anemia unchanged from baseline, thrombocytosis unchanged from baseline, hyponatremia and hypoalbinumia unchanged from baseline. 07/01/23 11:15 07/01/23 11:15 Labs: Lab Results 07/01/23 07/01/23 07/01/23 Range/Units 11:15 13:10 18:26 WBC 16.7 H (4.8-10.8) X10*3/uL RBC 3.16 L (4.20-5.50) X10*6/uL Hgb 8.7 L (12.0-16.0) g/dl Hct 26.8 L (37.0-47.0) % MCV 84.8 (80.0-98.0) fL MCH 27.5 (27.0-33.0) pg MCHC 32.5 (31.0-35.0) g/dl RDW 14.0 (11.0-16.0) % Plt Count 861 H (160-400) X10*3/uL MPV 8.9 L (9.4-12.3) fL Immature Gran % (Auto) 1.6 H (0.0-0.4) % Neut % (Auto) 79.8 H (45-73) % Lymph % (Auto) 7.6 L (20-40) % Hill % (Auto) 10.3 (2-11) % Eos % (Auto) 0.2 (0-4) % Baso % (Auto) 0.5 (0-2) % Lymph # (Auto) 1.3 (1.2-4.9) X10*3/uL Hill # (Auto) 1.7 H (0.1-1.2) X10*3/uL Eos # (Auto) 0.0 (0.0-0.4) X10*3/uL Baso # (Auto) 0.1 (0.0-0.2) X10*3/uL Abs Immat Gran (auto) 0.26 H (0.00-0.03) X10*3/uL Absolute Neuts (auto) 13.3 H (2.0-8.3) x10*3/uL Absolute Nucleated RBC 0.000 (0.0-0.012) X10*3/uL Nucleated RBC % (auto) 0.0 (0.0-0.2) /100WBC Smear Tech's Comments VERIFIED Sodium 133 L (135-145) mmol/L Potassium 4.0 (3.3-5.1) mmol/L Chloride 98 (96-108) mmol/L Carbon Dioxide 25 (22-29) mmol/L Anion Gap 14 (12-20) BUN 14 (9-16) mg/dL Creatinine 1.00 (0.5-1.4) mg/dL Estim Creat Clear Calc 46.2 Estimated GFR 53 Random Glucose 149 H (60-115) mg/dL Calcium 8.6 D (8.4-10.2) mg/dL Magnesium 1.9 (1.6-2.6) mg/dL Total Bilirubin 0.6 (0.0-1.0) mg/dL AST 105 H (5-31) U/L ALT 86 H (0-31) U/L Alkaline Phosphatase 527 H (39-117) U/L Troponin I High Sens 8.0 (<3.5-17.0) ng/L B-Natriuretic Peptide 301 H (<100) pg/mL Total Protein 7.3 (6.5-8.0) g/dL Albumin 2.7 L (3.5-5.0) g/dL Urine Color Yellow Urine Appearance Clear Urine pH 6.0 (5.0-9.0) Ur Specific Goldsmith <= 1.005 (1.005-1.025) Urine Protein Negative (Neg-Trace) mg/dL Urine Glucose (UA) Negative (Negative) mg/dL Urine Ketones Negative (Negative) mg/dL Urine Blood Trace H (Negative) Urine Nitrite Negative (Negative) Ur Leukocyte Esterase Negative (Negative) Urine RBC 0-2 (0-2) /HPF Urine WBC 0-5 (0-5) /HPF Ur Squamous Epith Cells 0-2 (0-2) /HPF Urine Bacteria None Seen (None Seen) Hyaline Casts 0-2 (0-2) /LPF Independent Interpretation I performed an independent interpretation of an: Plain X-Ray and Ultrasound Interpretation: I independently reviewed the chest x-ray and the ultrasound agree with the radiology report I independently viewed EKG which shows normal sinus rhythm with a rate of 79, normal UT, normal QRS, normal QT Radiology Impression Discussion of test interpretation with radiology: I have reviewed the radiologist's reading. Radiologist Impression: [address] [id number] Ultrasound Report Signed Patient: Michelle Tomlinson MR#: [id number] : 1945 Acct:[id number] Age/Sex: 78 / F ADM Date: 07/01/23 Loc: .ED Attending Dr: Ordering Physician: Zeinab Chen NP Date of Service: 07/01/23 Procedure(s): US venous duplex LE BI Accession Number(s): [id number] cc: Wojciech Billings MD; Zeinab Chen NP~ EXAMINATION: US VENOUS ULTRASOUND WITH DOPPLER LOWER EXTREMITY, BILATERAL CLINICAL INFORMATION: Edema. COMPARISON: None available. TECHNIQUE: Ultrasound of the deep veins is performed from the hip to the calf with compression sonography and color and pulse Doppler assessment. Spectral analysis with color-flow imaging is performed. FINDINGS: RIGHT: There is normal venous compression and respiratory variation and augmented flow. The visualized common femoral vein, superficial femoral vein, profunda femoral vein, popliteal vein, and the trifurcation region shows no evidence of deep venous thrombosis. There is no significant popliteal fossa cyst. LEFT: There is normal venous compression and respiratory variation and augmented flow. The visualized common femoral vein, superficial femoral vein, profunda femoral vein, popliteal vein, and the trifurcation region shows no evidence of deep venous thrombosis. There is no significant popliteal fossa cyst. If the patient's symptoms persist, followup ultrasound in 5 days 7 days might be of value to exclude proximal propagation from a non-visualized calf vein. US/US venous duplex LE BI IMPRESSION: No DVT demonstrated in the bilateral lower extremities. [address] [id number] XRay Report Signed Patient: Michelle Tomlinson MR#: [id number] : 1945 Acct:[id number] Age/Sex: 78 / F ADM Date: 07/01/23 Loc: .ED Attending Dr: Ordering Physician: Zeinab Chen NP Date of Service: 07/01/23 Procedure(s): XR chest 2V Accession Number(s): [id number] cc: Wojciech Billings MD; Zeinab Chen NP~ EXAMINATION: XR CHEST CLINICAL INFORMATION: Elevated BNP COMPARISON: Chest x-ray 12/18/2021. TECHNIQUE: 2 views of the chest were obtained. FINDINGS: The lungs are well-expanded and clear. The heart size is borderline enlarged with increased pulmonary vascularity question mild congestion. No gross bony abnormality seen. XR/XR chest 2V IMPRESSION: Borderline cardiomegaly with mild pulmonary vascular congestion. Tests considered The following testing was considered but not selected: No clinical findings concerning for DVT with a negative ultrasound, no hypoxia, no tachypnea, no tachycardia, no complaints of shortness of breath or chest pain to suggest PE and need for CTA. Additionally patient is anticoagulated with Eliquis and has been compliant Chronic Conditions Patient?s care impacted by: Cancer Discharge Plan Discharge Clinical Impression: CHF (congestive heart failure) Patient Disposition: Home, Self-Care Instructions: Heart Failure (ED) Additional Instructions: Your BNP is mildly elevated. Chest x-ray shows signs of some mild congestion in the lungs. We are putting you on Lasix. Please elevate your legs and wear compression stockings. Your ultrasound did not show any signs of blood clots in your legs. You should continue your Eliquis and do not miss any doses. Keep your appointment on Saturday with the oncologist at [facility]. Please return if you develop any chest pain or shortness of breath Follow-up with your e commerce solution architect Prescriptions: New furosemide 20 mg tablet 20 mg PO DAILY Qty: 30 0RF No Action atorvastatin 80 mg tablet 80 mg PO QPM 90 Days Qty: 90 3RF ciclopirox 0.77 % cream 1 appl topical BID Protocol: Apply to: Apply to: FEET Eliquis 5 mg tablet 5 mg PO BID Qty: 60 0RF metoprolol succinate [Toprol XL] 25 mg tablet extended release 24 hr 12.5 mg PO DAILY Qty: 30 0RF losartan 25 mg tablet 25 mg PO DAILY nystatin 100,000 unit/mL suspension 400,000 unit PO TID 14 Days Qty: 168 0RF Rx Instructions: Swish and spit Referrals: Wojciech Billings MD [Primary Care Provider] - 1 week Interventions: ED Discharge Assessment Last Done: 07/01/23 19:55 Discharge Date/Time: 07/01/23 19:55
[2023-07-01 11:24] LABS: Basophils Absolute Auto 0.1 X10*3/uL (0.0-0.2); Basophils Percent Auto 0.5 % (0-2); Eosinophils Percent Auto 0.2 % (0-4); Hematocrit 26.8 % (37.0-47.0); Hemoglobin 8.7 g/dl (12.0-16.0); Imm Gran Abs Auto 0.26 X10*3/uL (0.00-0.03); Imm Gran Pct Auto 1.6 % (0.0-0.4); Lymphocytes Absolute Auto 1.3 X10*3/uL (1.2-4.9); Lymphocytes Percent Auto 7.6 % (20-40); MANUAL DIFF FLAG SCAN; Mean Corpuscular HGB Conc 32.5 g/dl (31.0-35.0); Mean Corpuscular Hemoglobin 27.5 pg (27.0-33.0); Mean Corpuscular Volume 84.8 fL (80.0-98.0); Mean Platelet Volume 8.9 fL (9.4-12.3); Monocytes Absolute Auto 1.7 X10*3/uL (0.1-1.2); Monocytes Percent Auto 10.3 % (2-11); Neutrophils Absolute Auto 13.3 x10*3/uL (2.0-8.3); Neutrophils Percent Auto 79.8 % (45-73); Platelet Count 861 X10*3/uL (160-400); Red Blood Count 3.16 X10*6/uL (4.20-5.50); SCAN SMEAR FLAG 1; White Blood Count 16.7 X10*3/uL (4.8-10.8)
[2023-07-01 11:47] LABS: Alanine Aminotransferase 86 U/L (0-31); Albumin Level 2.7 g/dL (3.5-5.0); Alkaline Phosphatase 527 U/L (39-117); Anion Gap 14 (12-20); Aspartate Amino Transferase 105 U/L (5-31); Bilirubin Total 0.6 mg/dL (0.0-1.0); Blood Urea Nitrogen 14 mg/dL (9-16); Calcium 8.6 mg/dL (8.4-10.2); Carbon Dioxide 25 mmol/L (22-29); Chloride 98 mmol/L (96-108); Creatinine Clr Calc Pharmacy 46.2; Estimated Glomerular Filt Rate 53; Glucose Random 149 mg/dL (60-115); Magnesium 1.9 mg/dL (1.6-2.6); Sodium 133 mmol/L (135-145); Total Protein 7.3 g/dL (6.5-8.0)
[2023-07-01 11:52] LABS: B Type Natriuretic Peptide 301 pg/mL (<100)
[2023-07-01 11:55] LABS: SLIDE REVIEW VERIFIED
[2023-07-01 13:22] LABS: Appearance Urine Clear; Color Urine Yellow; Glucose Urine UA Negative (Negative); Leukocyte Esterase Urine Negative (Negative); Nitrite Urine Negative (Negative); Specific Gravity - Urine <= 1.005 (1.005-1.025); UMIC TRIGGER UACC YES; Urine Blood Trace (Negative); Urine Ketones Negative (Negative); Urine Protein Negative (Neg-Trace)
[2023-07-01 13:26] LABS: Bacteria Urine None Seen (None Seen); Hyaline Casts Urine 0-2 /LPF (0-2); RBC Urine 0-2 /HPF (0-2); Squamous Epithelial Cell Urine 0-2 /HPF (0-2); WBC Urine 0-5 /HPF (0-5)
[2023-07-01 15:08] VITALS: BP 132/56; PULSE 84; RESP 14; TEMP 36.6; O2SAT 98
[2023-07-01 17:25] VITALS: BP 153/77; PULSE 83; RESP 15; TEMP 36.5; O2SAT 100
--- NOTE | 2023-07-01 17:26 | PC.NURSE ---
this rn assumed care of pt. pt a&ox4, respirations even and unlabored. pt reports being diagnosed with cancer at [facility] and reports wanting to get her labs checked. pt reports lower extremity swelling at this time. pt noted to have 1+ pitting edema. pt denies pain, SOB and chest pain.
--- NOTE | 2023-07-01 18:00 | ECG_ITS ---
Test Reason : ELEVATED BNP, LEG SWELLING Blood Pressure : / mmHG Vent. Rate : 079 BPM Atrial Rate : 079 BPM P-R Int : 122 ms QRS Dur : 074 ms QT Int : 388 ms P-R-T Axes : 000 038 012 degrees QTc Int : 444 ms Normal sinus rhythm Normal ECG When compared with ECG of 19-DEC-2021 11:38, Vent. rate has increased BY 36 BPM Referred By: Zeinab Jimenez Electronically Signed By:Noe Herrera
[2023-07-01 18:18] VITALS: BP 137/60; PULSE 77; RESP 16; TEMP 36.8; O2SAT 100
[2023-07-01 19:38] VITALS: BP 132/47; PULSE 89; RESP 16; TEMP 36.7; O2SAT 97
--- NOTE | 2023-07-01 19:46 | PC.NURSE ---
printed circuit board drafter made this rn aware of bp of 132/47. this rn made dede aware of bp. no new orders pt up for discharge. per dede pt okay to discharge
--- NOTE | 2023-07-01 19:54 | PC.NURSE ---
pt ambulatory at discharge. calm and cooperative. pt provided with discharge packet. pt verbalized understanding of discharge plan
== END 2023-07-01 19:55 | disposition home or self-care (01) ==
PROVIDERS: Nurse Practitioner Family; Physician Assistant Medical; Emergency Provider Emergency Medicine; PCP Internal Medicine
DX: I11.0 Hypertensive heart disease with heart failure (principal); I50.9 Heart failure, unspecified; R60.0 Localized edema; E78.5 Hyperlipidemia, unspecified; I48.0 Paroxysmal atrial fibrillation; D50.9 Iron deficiency anemia, unspecified; Z79.01 Long term (current) use of anticoagulants; Z79.02 Long term (current) use of antithrombotics/antiplatelets; Z79.899 Other long term (current) drug therapy
CPT/HCPCS: 36415; 71046; 80053; 81001; 83735; 83880; 84484; 85025; 93005; 93970; 99284

== ENCOUNTER → 2023-07-01 18:00 | Outpatient (BNV) | payer MEDICARE, SELFPAY | PROVIDERS: Emergency Provider Emergency Medicine; PCP Internal Medicine; Visit Provider Internal Medicine Cardiovascular Disease | DX: I10 Essential (primary) hypertension (principal) | CPT/HCPCS: 93010 ==

== ENCOUNTER 2023-08-06 04:51 | Inpatient (IN) | payer MEDICARE, SELFPAY ==
[2023-08-06] VITALS (9 sets, daily range): BP systolic 114–144; BP diastolic 46–84; PULSE 72–85; RESP 16–20; TEMP 36.6–37.3; O2SAT 96–99; BMI 29.8
--- NOTE | 2023-08-06 | ECG_ITS ---
Test Reason : DIZZINESS Blood Pressure : / mmHG Vent. Rate : 077 BPM Atrial Rate : 077 BPM P-R Int : 112 ms QRS Dur : 072 ms QT Int : 374 ms P-R-T Axes : -06 039 044 degrees QTc Int : 423 ms Normal sinus rhythm Normal EKG When compared with ECG of 01-JUL-2023 18:13, No significant change was found Referred By: Generic ED Physician Electronically Signed By:JOSH LAROSE
--- NOTE | ~2023-08-06 | XR_ITS ---
EXAMINATION: XR CHEST CLINICAL INFORMATION: Hypoxia COMPARISON: 07/01/2023 TECHNIQUE: Frontal view of the chest was obtained. FINDINGS: Lung volumes are symmetric. No focal consolidation is seen. There is suggestion of mild subsegmental atelectasis at the left base. No evidence of pneumothorax, significant pleural effusion, or overt pulmonary edema. Cardiac size is within normal limits. Calcification is present at the aortic arch. No acute osseous findings are seen. XR/XR chest 1V IMPRESSION: Suggestion of mild left basilar atelectasis without additional acute findings.
--- NOTE | ~2023-08-06 | CT_ITS ---
EXAMINATION: CT ABDOMEN AND PELVIS WITHOUT CONTRAST CLINICAL INFORMATION: Small bowel obstruction. COMPARISON: Multiple priors, most recent CT abdomen/pelvis dated 08/07/2023. Most recent chest radiograph dated 08/10/2023. TECHNIQUE: Multidetector volumetric imaging was performed from the superior aspect of the liver through the pubic symphysis. Sagittal and coronal reformatted images were obtained on the technologist's workstation. This CT examination was performed using dose optimization techniques as appropriate, variously including the following: *Automated exposure control *Adjustment of mA and/or kV according to patient size (this includes techniques or standardized protocols for targeted exams where dose is matched to indication/reason for exam; i.e. extremities or head) *Use of iterative reconstruction technique DLP: 1138 mGy-cm. FINDINGS: LUNG BASES: Prominent bibasilar airspace opacities, new when compared to the prior CT, as seen on the chest radiograph and earlier the same day. Findings are consistent with multifocal pneumonia. LIVER, GALLBLADDER, AND BILIARY TREE: The liver is normal in size, shape, and attenuation. No focal hepatic lesion or biliary ductal dilatation is present. Redemonstration of a distended gallbladder without inflammatory change. PANCREAS: Completely fatty replaced. No associated inflammatory change or pancreatic ductal dilatation. SPLEEN: Unremarkable. ADRENAL GLANDS: Unremarkable. KIDNEYS AND URETERS: The kidneys are normal in size, shape, and attenuation. No hydronephrosis, hydroureter, or calculi seen. Simple right upper pole renal cyst, unchanged. Findings are not clinically significant and no dedicated follow-up imaging is recommended. BLADDER: Nondistended with a Limon catheter in place. GASTROINTESTINAL TRACT: Enterogastric tube with the tip just distal to the gastroesophageal junction. Mildly prominent, fluid-filled small bowel loops, slightly increased when compared to the prior examination. Nondistended colon. Findings likely represent ileus. No definite transition point identified; however, a partial small bowel obstruction could also be considered. No significant bowel wall thickening or inflammatory change. There is a rectal catheter in place. PERITONEAL CAVITY: Diffuse mesenteric stranding with trace ascites, new when compared to the prior examination. No organized fluid collection or abscess formation. No intra-abdominal free air. ABDOMINAL WALL: Diffuse abdominal wall subcutaneous edema, increased when compared to the prior examination. No abdominal wall hernia. LYMPH NODES: No significant lymphadenopathy; however, evaluation limited without IV contrast. VASCULAR: No abdominal aortic dilatation. Atherosclerotic calcifications. PELVIC VISCERA: The uterus and adnexa are unremarkable. OSSEOUS STRUCTURES: Unremarkable. CT/CT abdomen pelvis wo IV con IMPRESSION: 1. Mildly prominent, fluid-filled small bowel loops, slightly increased when compared to the prior examination. Nondistended colon. Findings likely represent ileus. No definite transition point identified; however, a partial small bowel obstruction could also be considered. No significant bowel wall thickening or inflammatory change. 2. Diffuse mesenteric stranding with trace ascites, new when compared to the prior examination. No organized fluid collection or abscess formation. No intra-abdominal free air. 3. Prominent bibasilar airspace opacities, new when compared to the prior examination and consistent with multifocal pneumonia. 4. Diffuse abdominal wall subcutaneous edema, increased when compared to the prior examination. Fleischner guidelines were followed.
--- NOTE | ~2023-08-06 | CT_ITS ---
EXAMINATION: CT ABDOMEN AND PELVIS WITH CONTRAST CLINICAL INFORMATION: Abdominal pain. COMPARISON: CT scans dating between June 25, 2023 and June 15, 2015. TECHNIQUE: Multidetector volumetric images were obtained from the superior aspect of the liver through the pubic symphysis following administration 85 mL of Omnipaque 350 intravenous contrast. Sagittal and coronal reformatted images were obtained on the technologist's workstation. Oral contrast: No This CT examination was performed using dose optimization techniques as appropriate, variously including the following: *Automated exposure control *Adjustment of mA and/or kV according to patient size (this includes techniques or standardized protocols for targeted exams where dose is matched to indication/reason for exam; i.e. extremities or head) *Use of iterative reconstruction technique DLP: 530 mGy-cm FINDINGS: LUNG BASES: Small bilateral pleural effusions with associated dependent atelectasis, right worse than left. Mild cardiomegaly. No pericardial effusion. LIVER, GALLBLADDER, AND BILIARY TREE: The liver appears unremarkable in size, shape, and attenuation. No focal hepatic lesion or biliary ductal dilatation is appreciated. Distended gallbladder measuring approximately 5 cm in diameter. No obvious gallbladder wall thickening. PANCREAS: Unremarkable SPLEEN: Unremarkable ADRENAL GLANDS: Unremarkable KIDNEYS AND URETERS: Approximately 4.3 cm benign right upper pole simple renal cyst for which no further dedicated follow up imaging is indicated. The kidneys otherwise appear unremarkable in size, shape, and attenuation. No hydronephrosis, hydroureter, or calculi seen. BLADDER: Unremarkable GASTROINTESTINAL TRACT: Limited by lack of oral contrast. Fluid within the visualized distal esophagus. Suspect mild concentric thickening involving the visualized distal esophagus. Fluid throughout mildly dilated small bowel and large bowel, as well as within the rectal vault. Few, scattered colonic diverticula without evidence of diverticulitis. The small and large bowel appear unremarkable. OMENTUM/PERITONEAL CAVITY: Enhancing omental caking. Multiple regions of fluid within the pelvis, probably loculated. Cannot entirely exclude enhancing mural nodule (image 60, series 3). Small amount of ascites. ABDOMINAL WALL: Mild anasarca. No significant hernia is appreciated. LYMPH NODES: No evidence of adenopathy by size criteria. VASCULAR: Unremarkable PELVIC VISCERA: Unremarkable OSSEOUS STRUCTURES: Severe disc degenerative change at L2-L3, with approximately 2 mm posterior subluxation of L2 on L3. CT/CT abdomen pelvis w IV con IMPRESSION: Enhancing omental caking, highly suspicious for malignant involvement (for example, ovarian cancer). Multiple regions of fluid within the pelvis, probably loculated. Cannot entirely exclude enhancing mural nodule. Small amount of ascites. Fluid within the visualized distal esophagus, suggesting an element of reflux and/or dysmotility. Suspect mild concentric thickening involving the visualized distal esophagus, the differential diagnosis of which includes, but is not limited to, esophagitis. Fluid throughout mildly dilated small bowel and large bowel, as well as within the rectal vault. These findings suggest hypersecretion. Small bilateral pleural effusions with associated dependent atelectasis, right worse than left. Anasarca. Distended gallbladder. No definite evidence of gallbladder wall thickening.
--- NOTE | ~2023-08-06 | XR_ITS ---
EXAMINATION: XR CHEST CLINICAL INFORMATION: Status post intubation. COMPARISON: Most recent chest radiograph dated 08/09/2023. TECHNIQUE: Frontal view of the chest was obtained. FINDINGS: Endotracheal tube with the tip approximately 2.4 cm proximal to the iliana. Enterogastric tube with the tip just distal to the left hemidiaphragm and in the region of the gastric fundus. Patchy bilateral lower lobe airspace opacities, new/increased when compared to the prior examination. No pleural effusion or pneumothorax. Stable cardiomediastinal silhouette. XR/XR chest 1V IMPRESSION: 1. Endotracheal tube with the tip approximately 2.4 cm proximal to the iliana. Enterogastric tube in appropriate position. 2. Patchy bilateral lower lobe airspace opacities, new/increased when compared to the prior examination.
--- NOTE | ~2023-08-06 | XR_ITS ---
EXAMINATION: XR CHEST CLINICAL INFORMATION: Central line placement COMPARISON: 06/07/2024 TECHNIQUE: Frontal view of the chest was obtained. FINDINGS: There is a right jugular central line of line placement with the tip in the atriocaval junction. Nasogastric tube is well positioned with the tip and port in the stomach below the diaphragm Lungs of low wall with patchy airspace disease seen bibasilar. Cardiomediastinal silhouette is normal. XR/XR chest 1V IMPRESSION: Deeply positioned right jugular central venous line. Patchy airspace disease bilaterally. Well-positioned nasogastric tube
--- NOTE | 2023-08-06 05:12 | PC.NURSE ---
PT REPORTS HAD BEEN TAKEN OFF LASIX 1 WK AGO +2/3 PITTING EDEMA BLE.
[2023-08-06 05:34] LABS: Basophils Percent Auto 0.6 % (0-2); Eosinophils Absolute Auto 0.2 X10*3/uL (0.0-0.4); Eosinophils Percent Auto 6.3 % (0-4); Hematocrit 30.5 % (37.0-47.0); Hemoglobin 9.6 g/dl (12.0-16.0); Imm Gran Abs Auto 0.03 X10*3/uL (0.00-0.03); Imm Gran Pct Auto 0.9 % (0.0-0.4); Lymphocytes Absolute Auto 0.4 X10*3/uL (1.2-4.9); Lymphocytes Percent Auto 13.4 % (20-40); Mean Corpuscular HGB Conc 31.5 g/dl (31.0-35.0); Mean Corpuscular Hemoglobin 25.6 pg (27.0-33.0); Mean Corpuscular Volume 81.3 fL (80.0-98.0); Mean Platelet Volume 10.4 fL (9.4-12.3); Monocytes Percent Auto 0.6 % (2-11); Neutrophils Absolute Auto 2.5 x10*3/uL (2.0-8.3); Neutrophils Percent Auto 78.2 % (45-73); Platelet Count 305 X10*3/uL (160-400); Red Blood Count 3.75 X10*6/uL (4.20-5.50); SCAN SMEAR FLAG 1; White Blood Count 3.2 X10*3/uL (4.8-10.8)
[2023-08-06 05:36] LABS: MANUAL DIFF FLAG SCAN
[2023-08-06 05:56] LABS: B Type Natriuretic Peptide 110 pg/mL (<100)
[2023-08-06 06:06] LABS: SLIDE REVIEW VERIFIED
[2023-08-06 06:07] LABS: Alanine Aminotransferase 56 U/L (0-31); Albumin Level 2.1 g/dL (3.5-5.0); Alkaline Phosphatase 304 U/L (39-117); Anion Gap 17 (12-20); Aspartate Amino Transferase 76 U/L (5-31); Bilirubin Total 0.8 mg/dL (0.0-1.0); Blood Urea Nitrogen 26 mg/dL (9-16); Carbon Dioxide 21 mmol/L (22-29); Chloride 105 mmol/L (96-108); Creatinine Clr Calc Pharmacy 55.8; Estimated Glomerular Filt Rate > 60; Glucose Random 132 mg/dL (60-115); Potassium 5.1 mmol/L (3.3-5.1); Sodium 138 mmol/L (135-145); Total Protein 6.5 g/dL (6.5-8.0)
[2023-08-06 06:14] LABS: Influenza A PCR NEGATIVE (Negative); Influenza B PCR NEGATIVE (Negative); Resp Syncy Virus RNA Qual PCR NEGATIVE (Negative); SARS COV2 PCR INHOUSE NEGATIVE (Negative)
[2023-08-06] MEDS: ondansetron HCL 4 MG/2 ML VIAL IVPUSH ×2 (07:35→15:33)
[2023-08-06] MEDS: 0.9 % Sodium Chloride 1,000 ML 100 ML IVCONT ×2 (07:37→17:55)
--- NOTE | 2023-08-06 08:05 | ED.WEAKNESS ---
HPI - Weakness General Chief complaint: General Medical Stated complaint: MALAISE Time Seen by Provider: 08/06/23 07:04 Source: patient and old records reviewed Mode of arrival: EMS Limitations: no limitations History of Present Illness HPI Narrative: 78 yo female with PMH of PAF on eliquis, PAD, HTN, HLD< anemia, GERD, CKD, currently under care at [facility] [employer] surgical oncology for omental tumor she states she has had a biopsy as well confirming primary [employer] source though she cannot tell me what. She notes she had her first chemo infusion last Saturday then developed symptoms on Saturday of nausea, poor PO intake, foot pain. She did call her oncologist who instructed her to take tylenol and offered oral narcotics but the patient will not take them (was prescribed vicodin). She is also not currently on vicodin. She has had infrequent loose stools and taking immodium. The patient reports her pain in her abdomen is actually pretty good. She is drinking fluids here, refusing IV pain medications, lives at home with her sister Complaint: generalized weakness Onset (ago): day(s) (Saturday) Duration: constant Location: generalized Migration: none Severity: moderate Quality: aching Relieving factors: rest Exacerbating factors: movement Context: new medication and recent illness Associated symptoms: loss of appetite Related Data Home Medications Medication Instructions Recorded Confirmed ciclopirox 0.77 % topical cream 1 appl topical BID 12/19/21 12/27/22 losartan 25 mg tablet 25 mg PO DAILY 01/22/22 12/27/22 Previous Rx's Medication Instructions Recorded apixaban 5 mg tablet (Eliquis) 5 mg PO BID #60 tabs 12/19/21 metoprolol succinate 25 mg 12.5 mg (1/2 x 25 mg) PO DAILY #30 12/19/21 tablet,extended release 24 hr tabs (Toprol XL) atorvastatin 80 mg tablet 80 mg PO QPM 90 days #90 tabs 09/27/22 nystatin 100,000 unit/mL oral 400,000 unit (4 mL) PO TID 14 days 06/01/23 suspension #168 mL furosemide 20 mg tablet 20 mg PO DAILY #30 tabs 07/01/23 ondansetron 4 mg disintegrating 4 mg PO Q8H PRN nausea and 08/06/23 tablet vomiting #20 tabs Allergies Allergy/AdvReac Type Severity Reaction Status Date / Time succinylcholine AdvReac Severe Muscle Verified 07/01/23 11:05 [SUCCINYLCHOLINE] cramps ciprofloxacin AdvReac Nausea and Verified 07/01/23 11:05 Vomiting metronidazole [From Flagyl] AdvReac Nausea and Verified 07/01/23 11:05 Vomiting Review of Systems Review of Systems: Constitutional : No Fever, No Chills, pos Fatigue ENT/Mouth : No sore throat, No Rhinorrhea Eyes: No Eye Pain, No Swelling, No Redness Cardiovascular : No Chest Pain, No SOB, No Dyspnea on Exertion Respiratory : No Cough, No Sputum Gastrointestinal :pos Nausea, No Vomiting, pos Diarrhea, No abdominal Pain Genitourinary : No Dysuria, No Urinary Frequency, No Hematuria, Musculoskeletal : No joint pain, No Myalgias, No Joint Swelling Skin : No Skin Lesions, No rash Neuro : pos Weakness, No Numbness, No Dizziness, no Headache Psych : No Anxiety/Panic, No Depression Heme/Lymph: No Bruising, No Bleeding,No Lymphadenopathy Endocrine : No Polyuria, No Polydipsia All other systems reviewed and are negative [facility] Past Medical History Attestation statement: The following information was validated with the patient. Source: old records reviewed Medical History Atrial fibrillation with rapid ventricular response History of pneumonia Skin cancer Arthritis GERD (gastroesophageal reflux disease) Elevated cholesterol History of palpitations PVC (premature ventricular contraction) Essential hypertension Atrial arrhythmia Surgical History S/P ablation of atrial fibrillation History of rectal polypectomy Hx of dilation and curettage Hx of colonoscopy History of open reduction and internal fixation (ORIF) procedure Hx of tonsillectomy Family History Family History Father Esophageal cancer Mother No problems noted. Sister No problems noted. Social History Social History Are you a primary caretaker resort to a significant other at home: No Do you presently have visiting nurse or other home services: No Patient Tobacco Use Status: Never used Tobacco Smoked in Last 30 Days: No Use of substances other than those prescribed or required for medical reasons: No Advance Directives: Yes Advance Directives on File: Yes Advance Directives Date on File: 12/19/21 service: No Current occupational status: employed Physical Exam Vital Signs: Vital Signs: Last Vital Signs Temp 98.2 F 08/06/23 06:32 Pulse 78 08/06/23 09:42 Resp 18 08/06/23 09:42 BP 122/50 L 08/06/23 09:42 Pulse Ox 97 08/06/23 09:42 O2 Del Method Room Air 08/06/23 09:42 BMI result Body Mass Index 29.8 Appearance: Alert. Oriented X3. No acute distress. Eyes: Pupils equal, round and reactive to light. ENT: Pharynx normal. Neck: Normal inspection. Neck supple. CVS: Normal heart rate and rhythm. Pulses normal. Respiratory: No respiratory distress. Breath sounds normal. Abdomen: Soft and nontender. Skin: Skin warm and dry. pale skin color. Normal skin turgor. Extremities: pitting edema of both ankles. No calf ttp Neuro: Oriented X 3. No motor deficit. No sensory deficit. Course Course Course Narrative: tolerating PO here after zofran but still feels too ill to go home will place in overflow and ED observation until AM Patient placed in physician observation at 924am. The indication for observation is that the patient needs more time to see if their nausea and chemo effects improves or they will need to be admitted. At this time the patient is well developed, lungs clear, CV RRR, abd nontender, neuro is intact. IV morphine ordered as she has more pain since she got up to walk and PO tylenol PRN will follow up with urine culture has epi cells and no urinary symptoms Medications Administered Generic Name Dose Route Start Last Admin Trade Name Freq PRN Reason Stop Dose Admin Sodium Chloride 1,000 mls @ 100 mls/hr 08/06/23 07:30 08/06/23 07:37 Ns IVCONT 100 mls/hr .Q10H FLAQUITA Administration Discontinued Medications Generic Name Dose Route Start Last Admin Trade Name Freq PRN Reason Stop Dose Admin Morphine Sulfate 2 mg 08/06/23 09:31 08/06/23 09:42 Morphine Sulfate 2 Mg/Ml Cartridge IVPUSH 08/06/23 09:32 2 mg ONCE ONE Administration Protocol Ondansetron HCl 4 mg 08/06/23 07:17 08/06/23 07:35 Ondansetron Hcl 4 Mg/2 Ml Vial IVPUSH 08/06/23 07:18 4 mg ONCE ONE Administration Medical Decision Making Medical Decision Making [facility] Narrative: 78 yo female with PMH of PAF on eliquis, PAD, HTN, HLD< anemia, GERD, CKD, currently under care at [facility] surgical oncology for omental tumor Differential Diagnosis Differential Diagnoses: The differential diagnosis associated with the presentation includes weakness, dehydration, anemia, response to chemo Admission/Observation Consideration of admission/observation: Escalation of care including admission/observation considered labs improved from baseline, tolerating water but feels too weak to go home at this time will involve CM and likely admit to our ED observation unit overnight. Lab Data [facility] Lab Attestation statement: I reviewed the patient's lab results. 08/06/23 05:25 08/06/23 05:25 Labs: Lab Results 08/06/23 08/06/23 Range/Units 05:25 09:23 WBC 3.2 L (4.8-10.8) X10*3/uL RBC 3.75 L (4.20-5.50) X10*6/uL Hgb 9.6 L (12.0-16.0) g/dl Hct 30.5 L (37.0-47.0) % MCV 81.3 (80.0-98.0) fL MCH 25.6 L (27.0-33.0) pg MCHC 31.5 (31.0-35.0) g/dl RDW 17.0 H (11.0-16.0) % Plt Count 305 D (160-400) X10*3/uL MPV 10.4 (9.4-12.3) fL Immature Gran % (Auto) 0.9 H (0.0-0.4) % Neut % (Auto) 78.2 H (45-73) % Lymph % (Auto) 13.4 L (20-40) % Wells % (Auto) 0.6 L (2-11) % Eos % (Auto) 6.3 H (0-4) % Baso % (Auto) 0.6 (0-2) % Lymph # (Auto) 0.4 L (1.2-4.9) X10*3/uL Wells # (Auto) 0.0 L (0.1-1.2) X10*3/uL Eos # (Auto) 0.2 (0.0-0.4) X10*3/uL Baso # (Auto) 0.0 (0.0-0.2) X10*3/uL Abs Immat Gran (auto) 0.03 (0.00-0.03) X10*3/uL Absolute Neuts (auto) 2.5 (2.0-8.3) x10*3/uL Absolute Nucleated RBC 0.000 (0.0-0.012) X10*3/uL Nucleated RBC % (auto) 0.0 (0.0-0.2) /100WBC Smear Tech's Comments VERIFIED Sodium 138 (135-145) mmol/L Potassium 5.1 D (3.3-5.1) mmol/L Chloride 105 (96-108) mmol/L Carbon Dioxide 21 L (22-29) mmol/L Anion Gap 17 (12-20) BUN 26 H (9-16) mg/dL Creatinine 0.83 (0.5-1.4) mg/dL Estim Creat Clear Calc 55.8 Estimated GFR > 60 Random Glucose 132 H (60-115) mg/dL Calcium 8.0 L D (8.4-10.2) mg/dL Total Bilirubin 0.8 (0.0-1.0) mg/dL AST 76 H (5-31) U/L ALT 56 H (0-31) U/L Alkaline Phosphatase 304 H (39-117) U/L Troponin I High Sens 4.0 (<3.5-17.0) ng/L B-Natriuretic Peptide 110 H (<100) pg/mL Total Protein 6.5 (6.5-8.0) g/dL Albumin 2.1 L (3.5-5.0) g/dL Urine Color Dark Yellow Urine Appearance Cloudy Urine pH 5.0 (5.0-9.0) Ur Specific [place] 1.020 (1.005-1.025) Urine Protein 30 (1+) H (Neg-Trace) mg/dL Urine Glucose (UA) Negative (Negative) mg/dL Urine Ketones Negative (Negative) mg/dL Urine Blood Moderate (2+) H (Negative) Urine Nitrite Negative (Negative) Ur Leukocyte Esterase Moderate (2+) H (Negative) Urine RBC 6-10 H (0-2) /HPF Urine WBC 11-20 H (0-5) /HPF Ur Squamous Epith Cells 6-10 (0-2) /HPF Other Crystals Present Urine Bacteria Trace (None Seen) Hyaline Casts 3-5 (0-2) /LPF Influenza Type A (PCR) NEGATIVE (Negative) Influenza Type B (PCR) NEGATIVE (Negative) RSV RNA Qual (PCR) NEGATIVE (Negative) SARS-CoV-2 RNA (RT-PCR) NEGATIVE (Negative) Independent Interpretation I performed an independent interpretation of an: EKG Interpretation: Rate:77 Rhythm: NSR [place]: normal Normal P waves. Normal GIOVANNI. Normal QRS complex. ST T wave : normal no DAISY qTC: 423 prior studies: no acute ischemia The study has been interpreted contemporaneously by me. . Independent Historian Clinical information obtained from an independent historian. History obtained from or confirmed by: EMS External Record Review External record reviewed: Inpatient record Discharge Plan Discharge Clinical Impression: Nausea, Weakness, Bilateral foot pain Patient Disposition: Still a Patient Instructions: Acute Nausea and Vomiting (ED), Weakness (ED), Arthralgia (ED) Additional Instructions: your labs are actually improved from your baseline. you need to follow up with your oncology providers. your symptoms are likely related to your chemotherapy. Please return for fevers, inability to eat or drink. dizziness, falls, chest pain, trouble breathing or any other concerns. Prescriptions: New ondansetron 4 mg tablet,disintegrating 4 mg PO Q8H PRN (Reason: nausea and vomiting) Qty: 20 0RF No Action atorvastatin 80 mg tablet 80 mg PO QPM 90 Days Qty: 90 3RF ciclopirox 0.77 % cream 1 appl topical BID Protocol: Apply to: Apply to: FEET Eliquis 5 mg tablet 5 mg PO BID Qty: 60 0RF metoprolol succinate [Toprol XL] 25 mg tablet extended release 24 hr 12.5 mg PO DAILY Qty: 30 0RF losartan 25 mg tablet 25 mg PO DAILY furosemide 20 mg tablet 20 mg PO DAILY Qty: 30 0RF nystatin 100,000 unit/mL suspension 400,000 unit PO TID 14 Days Qty: 168 0RF Rx Instructions: Swish and spit
[2023-08-06 09:32] LABS: Appearance Urine Cloudy; Color Urine Dark Yellow; Glucose Urine UA Negative (Negative); Leukocyte Esterase Urine Moderate (2+) (Negative); Nitrite Urine Negative (Negative); UMIC TRIGGER UACC YES; Urine Blood Moderate (2+) (Negative); Urine Ketones Negative (Negative); Urine Protein 30 (1+) mg/dL (Neg-Trace)
[2023-08-06] MEDS: Morphine Sulfate 2 MG/ML CARTRIDGE IVPUSH (09:42)
[2023-08-06 09:45] LABS: Bacteria Urine Trace (None Seen); Other Crystals Urine Present; UACC Culture Trigger YES
--- NOTE | 2023-08-06 12:05 | PC.NURSE ---
pt arrives from main ED, awake and alert. she was able to stand and ambulate with SBA of two to get to the bed. she has iv access left forearm that has NS infusing
--- NOTE | 2023-08-06 12:17 | PC.NURSE ---
pt taking small sips of water, no nausea or vomiting currently
--- NOTE | 2023-08-06 14:14 | PC.NURSE ---
MED REC COMPLETED, PROVIDER CONTACTED FOR ORDERS
--- NOTE | 2023-08-06 15:43 | MHC.CM.ED ---
Received case management consult from Dr Campos. Patient came to the ER due to weakness. Receiving IVF. Will stay in ER overflow under obs overnight. Met with patient and sister Kimi in regards to d/c planning. 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 Patient lives with Kimi, ambulates independently and had no services prior to coming to the hospital. PCP verified. Patient is currently under going Chemo treatment from Dr Lorie Sanchez at [facility] oncology. She received her 1st dose of IV chemo last , 07/31. Patient has experienced every side affect that the MD explained as a possibility. Patient aware the plan is to continue IV fluid and zofran and see how patient does overnight. Patient agreeable to this plan. Copy of HCP obtained from [facility]. Continue to monitor for d/c needs.
--- NOTE | 2023-08-06 17:12 | MHC.EDTECH ---
pt was 1 assisted to bathroom with a steady gait
[2023-08-06] MEDS: Acetaminophen 325 MG TABLET 650 MG PO (17:55)
--- NOTE | 2023-08-06 19:27 | PC.NURSE ---
Pt in bed watching TV, no signs of distress. Plan of care ongoing.
--- NOTE | 2023-08-06 20:28 | PC.NURSE ---
Pt requested and disconnected from IV and assisted to the restroom by tech. Pt assisted back to room/bed and reconnected to IV per aug. Pt requesting meds for pain and nausea. Plan of care ongoing.
[2023-08-06] MEDS: Atorvastatin Calcium 80 MG TABLET PO (21:30)
[2023-08-06] MEDS: Apixaban 5 MG TABLET PO (21:30)
--- NOTE | 2023-08-06 21:33 | PC.NURSE ---
Pt medicated per aug. Plan of care ongoing.
--- NOTE | 2023-08-06 21:37 | PC.NURSE ---
Provider made aware pt requesting meds for nausea/pain/diarrhea and PRN orders in the system are not avail again until 00:00. No new orders at this time. Plan of care ongoing.
[2023-08-07] MEDS: Loperamide HCl 2 MG CAPSULE 4 MG PO ×2 (00:03→19:35)
--- NOTE | 2023-08-07 02:00 | PC.NURSE ---
pt had another huge BM liquid shes asking for immodium last dose given at 12 mn. well check with
[2023-08-07] MEDS: 0.9 % Sodium Chloride 1,000 ML 100 ML IVCONT ×3 (03:07→23:32)
[2023-08-07 03:58] VITALS: BP 171/75; PULSE 85; RESP 16; TEMP 36.4; O2SAT 95
--- NOTE | 2023-08-07 04:06 | PC.NURSE ---
pts bp 171/75 she is very uncomfortable oozing loose stools aware stool spec. will be sent for cdiff , will medicate for pain and reassess bp after
[2023-08-07] MEDS: Acetaminophen 325 MG TABLET 650 MG PO (04:12)
[2023-08-07] MEDS: Loperamide HCl 2 MG CAPSULE PO ×2 (04:13→08:54)
[2023-08-07 05:29] VITALS: BP 135/67; PULSE 88; RESP 18; O2SAT 95
[2023-08-07 05:47] LABS: CDiff Gene PCR NEGATIVE (Negative)
[2023-08-07] MEDS: ondansetron HCL 4 MG/2 ML VIAL IVPUSH ×2 (08:04→16:36)
[2023-08-07] MEDS: Morphine Sulfate Immed Release 15 MG TABLET PO (08:54)
[2023-08-07] MEDS: Losartan Potassium 25 MG TABLET PO (08:54)
[2023-08-07] MEDS: Apixaban 5 MG TABLET PO ×2 (08:54→21:19)
[2023-08-07 10:01] VITALS: BP 166/71; PULSE 87; RESP 18; TEMP 37.1; O2SAT 97
[2023-08-07 10:27] LABS: Hematocrit 29.9 % (37.0-47.0); Hemoglobin 9.3 g/dl (12.0-16.0); Mean Corpuscular HGB Conc 31.1 g/dl (31.0-35.0); Mean Corpuscular Hemoglobin 25.5 pg (27.0-33.0); Mean Corpuscular Volume 82.1 fL (80.0-98.0); Mean Platelet Volume 10.1 fL (9.4-12.3); Red Blood Count 3.64 X10*6/uL (4.20-5.50); Red Cell Distribution Width 17.8 % (11.0-16.0)
[2023-08-07 10:28] LABS: WBC ABN SCTR FOR CBC 1
[2023-08-07 10:31] LABS: White Blood Count 0.5 X10*3/uL (4.8-10.8)
[2023-08-07 10:42] LABS: Alanine Aminotransferase 46 U/L (0-31); Albumin Level 2.1 g/dL (3.5-5.0); Alkaline Phosphatase 333 U/L (39-117); Anion Gap 13 (12-20); Aspartate Amino Transferase 53 U/L (5-31); Bilirubin Total 0.9 mg/dL (0.0-1.0); Blood Urea Nitrogen 25 mg/dL (9-16); Calcium 8.2 mg/dL (8.4-10.2); Carbon Dioxide 20 mmol/L (22-29); Chloride 108 mmol/L (96-108); Creatinine Clr Calc Pharmacy 56.4; Estimated Glomerular Filt Rate > 60; Glucose Random 161 mg/dL (60-115); Lipase 4 U/L (8-78); Magnesium 1.9 mg/dL (1.6-2.6); Potassium 4.4 mmol/L (3.3-5.1); Sodium 137 mmol/L (135-145); Total Protein 5.9 g/dL (6.5-8.0)
--- NOTE | 2023-08-07 10:42 | MHC.CM.ED ---
Patient remains in ER overflow. Patient c/o abd pain and diarrhea. Gorge TORRES will order an abd CT and labs. Continue to monitor for d/c needs.
[2023-08-07] MEDS: Metoprolol Succinate ER 12.5 MG HALFTAB.ER.24H PO (10:45)
[2023-08-07] MEDS: Morphine Sulfate 4 MG/ML CARTRIDGE IVPUSH ×2 (11:15→19:36)
[2023-08-07 11:41] LABS: Band Neutrophils Percent 8 % (3-5); Eosinophils Percent Manual 4 % (0-4); Lymphocytes Absolute Manual 0.2 X10*3/uL (1.2-4.9); Lymphocytes Percent Manual 48 % (20-40); Monocytes Absolute Manual 0.1 X10*3/uL (0.1-1.2); Monocytes Percent Manual 16 % (2-11); Neutrophils Absolute Manual 0.2 X10*3/uL (2.0-8.3); Neutrophils Percent Manual 24 % (45-73); Platelet Estimate NORMAL (NORMAL); RBC Morphology NOTED
[2023-08-07 11:42] LABS: Acanthocytes 3+ (>5) /OIF; Burr Cells 3+ (>5) /OIF; Platelet Morphology Comment NORMAL; Schistocytes 1+ (0-2) /OIF
[2023-08-07 11:44] LABS: Platelet Count 193 X10*3/uL (160-400)
[2023-08-07] MEDS: Magnesium Hydrox/Alum Hydrox 30 ML ORAL.SUSP PO (12:32)
[2023-08-07] MEDS: iohexoL 350 MG/ML 100 ML INFUS..BTL IV (13:21)
[2023-08-07 13:48] VITALS: BP 165/70; PULSE 84; RESP 18; TEMP 36.3; O2SAT 96
[2023-08-07] MEDS: Prochlorperazine Edisylate 10 MG/2 ML VIAL 5 MG IM (14:00)
[2023-08-07 14:38] LABS: Lactic Acid 1.7 mmol/L (0.5-2.0)
--- NOTE | 2023-08-07 15:28 | PC.NURSE ---
pt transferred to main ED bed 20. Report given to Shirin
[2023-08-07 16:10] VITALS: BP 130/67; PULSE 87; RESP 18; TEMP 36.5; O2SAT 98
--- NOTE | 2023-08-07 16:19 | PC.NURSE ---
Pt transported from overflow, Pt alert and oriented, Pt skin slightly pale but dry, vs stable, breathing equal and unlabored, patient reports 6/10 epigastric pain and nausea, requests anti nausea medication, hypoactive bowel sounds present in all 4 quadrants at this time, patient repositioned in bed, call morales within reach
--- NOTE | 2023-08-07 16:26 | PM.IMHP ---
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 She has been under observation in the ED but developed worsening abd pain and found to be neutropenic earlier today. The patient reports she has been having 10+ episodes of watery diarrhea on a daily basis since ongoing since Saturday following initiation of chemotherapy regimen. There is associated 10/10 epigastric pain now rated 4/10 following narcotic frustration. Denies any fevers or chills. She is nauseous with occasional dry heaves in small volume vomitus. She is having difficulty tolerating PO. Following with Dr. Sanchez at [facility]. On arrrival, VSS. Afebrile. She is neutropenic with WBC 0.5, AND 0.2. Bandemia 8%. Stable normocytic anemia. Renal function baseline, electrolyte levels normal. Glucose 161. AST 53, ALT 46, alkaline phosphatase 333. Procalcitonin 0.8. CT abdomen pelvis showed enhancing omental caking highly suspicious for malignant involvement as well as multiple regions of fluid within the pelvis, probably loculated can not entirely exclude enhancing mural nodule. There is also small amount of ascites. There is fluid visualized within the distal esophagus suggesting an element of reflux or dysmotility as well as mild concentric thickening involving the visualized distal esophagus. There is fluid throughout mildly dilated small bowel and large bowel as well as within the rectal vault suggestive of hyper secretion. There also small bilateral pleural effusions with associated dependent atelectasis right worse than left and anasarca. Case was discussed with Oncology who recommends admission with [facility]. Review of Systems Review of Systems: General: No fevers, malaise, unintentional weight loss. +general weakness HEENT: No blurred vision, diplopia. No sore throat, nasal congestion, rhinorrhea, sinus pain, ear pain Cardiovascular: No chest pain, palpitations, or leg edema Respiratory: No shortness of breath, wheezing, cough GI: +abd pain, +nausea, +vomiting, +diarrhea. No constipation, melena, hematochezia : No dysuria, hematuria, increased urinary frequency, decreased urinary output MSK: No myalgia, back pain Neuro: No headaches, focal weakness, paresthesias Skin: No rashes or lesions [facility] Medical History (Updated 08/07/23 @ 17:45 by BRIAN De Leon) Gynecologic malignancy Carcinomatosis Atrial fibrillation with rapid ventricular response History of pneumonia Skin cancer Arthritis GERD (gastroesophageal reflux disease) Elevated cholesterol History of palpitations PVC (premature ventricular contraction) Essential hypertension Atrial arrhythmia Family History Father Esophageal cancer Mother No problems noted. Sister No problems noted. Surgical History S/P ablation of atrial fibrillation History of rectal polypectomy Hx of dilation and curettage Hx of colonoscopy History of open reduction and internal fixation (ORIF) procedure Hx of tonsillectomy Social History Are you a primary critical care technician to a significant other at home: No Do you presently have visiting nurse or other home services: No Patient Tobacco Use Status: Never used Tobacco Smoked in Last 30 Days: No Use of substances other than those prescribed or required for medical reasons: No Advance Directives: Yes Advance Directives on File: Yes Advance Directives Date on File: 12/19/21 service: No Current occupational status: employed Meds Allergies Allergy/AdvReac Type Severity Reaction Status Date / Time succinylcholine AdvReac Severe Muscle Verified 07/01/23 11:05 [SUCCINYLCHOLINE] cramps ciprofloxacin AdvReac Nausea and Verified 07/01/23 11:05 Vomiting metronidazole [From Flagyl] AdvReac Nausea and Verified 07/01/23 11:05 Vomiting Active Medications: Current Medications Acetaminophen (Acetaminophen 325 Mg Tablet) 650 mg PO Q6H PRN PRN Reason: Pain, Mild (Pain Scale 1-3) Last Admin: 08/06/23 17:55 Dose: 650 mg Apixaban (Apixaban 5 Mg Tablet) 5 mg PO BID FLAQUITA Last Admin: 08/07/23 08:54 Dose: 5 mg Atorvastatin Calcium (Atorvastatin Calcium 80 Mg Tablet) 80 mg PO BEDTIME [facility] Last Admin: 08/06/23 21:30 Dose: 80 mg Sodium Chloride (Ns) 1,000 mls @ 100 mls/hr IVCONT .Q10H [facility] Last Admin: 08/07/23 16:09 Dose: 100 mls/hr Loperamide HCl (Loperamide Hcl 2 Mg Capsule) 4 mg PO Q6H [facility] Losartan Potassium (Losartan Potassium 25 Mg Tablet) 25 mg PO DAILY [facility]; Protocol Last Admin: 08/07/23 08:54 Dose: 25 mg Metoclopramide HCl (Metoclopramide Hcl 10 Mg/2 Ml Vial) 10 mg IVPUSH Q6H PRN PRN Reason: Nausea and Vomiting Metoprolol Succinate (Metoprolol Succinate Er 12.5 Mg Halftab.Er.24h) 12.5 mg PO DAILY [facility]; Protocol Last Admin: 08/07/23 10:45 Dose: 12.5 mg Morphine Sulfate (Morphine Sulfate 4 Mg/Ml Cartridge) 4 mg IVPUSH Q4H PRN; Protocol PRN Reason: Pain, Severe (Pain Scale 7-10) Ondansetron HCl (Ondansetron Hcl 4 Mg/2 Ml Vial) 4 mg IVPUSH Q8H PRN PRN Reason: Nausea and Vomiting Last Admin: 08/07/23 08:04 Dose: 4 mg Oxycodone HCl (Oxycodone Hcl Immed Release 5 Mg Tablet) 5 mg PO Q4H PRN PRN Reason: Pain, Moderate(Pain Scale 4-6) Sodium Chloride (0.9 % Sodium Chloride Flush 3 Ml Syringe) 3 ml IVFLUSH QSHIFT [facility] Home Medications Medication Instructions Recorded Confirmed Last Taken Type losartan 25 mg tablet 25 mg PO DAILY 01/22/22 08/07/23 08/07/23 History loperamide 2 mg tablet 2 mg PO Q6H PRN Constipation 08/07/23 08/07/23 08/06/23 History omeprazole magnesium 20 mg 20 mg PO DAILY 08/07/23 08/07/23 08/07/23 History tablet,delayed release (Prilosec OTC) prochlorperazine maleate 10 mg 10 mg PO Q6H PRN nausea 08/07/23 08/07/23 Unknown History tablet Physical Exam Vital Signs and Narrative: Vital Signs: Last Vital Signs Temp 97.7 F 08/07/23 16:10 Pulse 87 08/07/23 16:10 Resp 18 08/07/23 16:10 BP 130/67 08/07/23 16:10 Pulse Ox 98 08/07/23 16:10 O2 Del Method Room Air 08/07/23 16:10 BMI result Body Mass Index 29.8 Constitutional - Awake and Alert, No apparent distress Eyes - PERRLA, EOMI Cardiovascular - S1S2, RRR, 1+ ble edema Respiratory - Normal lung expansion, Normal respiratory effort, No respiratory distress, CTA bilaterally Gastrointestinal - diffuse abd pain with guarding, no rebound. ND; +BS Extremities - no calf tenderness bilaterally, no swelling Skin - Warm/Dry Neurological - Alert & oriented x3 Psychological - Appropriate affect Results Labs 08/07/23 10:15 08/07/23 10:15 Labs: Laboratory Results - last 24 hr 08/07/23 08/07/23 08/07/23 04:20 10:15 14:10 MCV 82.1 MCH 25.5 L MCHC 31.1 RDW 17.8 H Plt Count 193 D MPV 10.1 Immature Gran % (Auto) Cancelled Neut % (Auto) Cancelled Lymph % (Auto) Cancelled Jefferson % (Auto) Cancelled Eos % (Auto) Cancelled Baso % (Auto) Cancelled Lymph # (Auto) Cancelled Jefferson # (Auto) Cancelled Eos # (Auto) Cancelled Baso # (Auto) Cancelled Abs Immat Gran (auto) Cancelled Absolute Neuts (auto) Cancelled Absolute Nucleated RBC 0.000 Nucleated RBC % (auto) 0.0 Neutrophils % (Manual) 24 L Band Neutrophils % 8 H Lymphocytes % (Manual) 48 H Monocytes % (Manual) 16 H Eosinophils % (Manual) 4 Abs Neuts (Manual) 0.2 L Lymphocytes # (Manual) 0.2 L Monocytes # (Manual) 0.1 Platelet Estimate NORMAL Plt Morphology Comment NORMAL RBC Morphology NOTED Zachary Cells 3+ (>5) Acanthocytes (Spur) 3+ (>5) Schistocytes 1+ (0-2) Anion Gap 13 Estim Creat Clear Calc 56.4 Estimated GFR > 60 Random Glucose 161 H Lactic Acid 1.7 Calcium 8.2 L Magnesium 1.9 Total Bilirubin 0.9 AST 53 H ALT 46 H Alkaline Phosphatase 333 H Total Protein 5.9 L Albumin 2.1 L Lipase 4 L Procalcitonin 0.80 C. difficile Tox B Gene NEGATIVE Imaging Radiologist's Impressions: Impressions Abdomen/Pelvis CT 08/07/23 13:21 IMPRESSION: Enhancing omental caking, highly suspicious for malignant involvement (for example, ovarian cancer). Multiple regions of fluid within the pelvis, probably loculated. Cannot entirely exclude enhancing mural nodule. Small amount of ascites. Fluid within the visualized distal esophagus, suggesting an element of reflux and/or dysmotility. Suspect mild concentric thickening involving the visualized distal esophagus, the differential diagnosis of which includes, but is not limited to, esophagitis. Fluid throughout mildly dilated small bowel and large bowel, as well as within the rectal vault. These findings suggest hypersecretion. Small bilateral pleural effusions with associated dependent atelectasis, right worse than left. Anasarca. Distended gallbladder. No definite evidence of gallbladder wall thickening. 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 #Neutropenia related to [employer] malignancy -no evidence of infection at this time. No sepsis. 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 Sanchez at [facility] -started carboplatin and paclitaxil 07/31 -antiemetics prn -main management prn -CT abd/pelvis shows loculated ascites. General surgery consult who will discuss with IR tomorrow #paroxysmal atrial fibrillation -continue eliquis, metoprolol #HTN -continue metoprolol, losartan #HLD -statin #GERD -ppi DVT prophylaxis- eliquis full code pt requires inpt stay at least 2 midnights due to neutropenia on neutropenic precautions and diarrhea with po intolerance Quality Stroke Does the patient have a stroke diagnosis?: No VTE Prior VTE?: No VTE Risk Level:: Medical - moderate - high VTE Device Contraindication: Treatment Not Indicated VTE Drug Contraindication: N/A - Med Ordered
[2023-08-07] MEDS: Tbo-Filgrastim 300 MCG/0.5 ML SYRINGE SUBCUT (16:36)
--- NOTE | 2023-08-07 17:09 | PHA.MEDREC ---
Pharmacy Consult ? Medication Reconciliation Pharmacy has completed the medication reconciliation. Confirmed medication with patient and through claim history. Patient reports that she does have a prescription for Oxycodone 5mg but she has not picked it up yet.
--- NOTE | 2023-08-07 18:16 | PC.NURSE ---
Patient sleeping at this time, respirations equal and unlabored.
[2023-08-07 19:25] VITALS: BP 149/62; PULSE 85; RESP 16; TEMP 36.6; O2SAT 94
[2023-08-07] MEDS: Metoclopramide HCl 10 MG/2 ML VIAL IVPUSH (19:36)
--- NOTE | 2023-08-07 20:02 | PC.NURSE ---
Assumed care of pt at 1900. PT drowsy, arousable to name, oriented and in no acute distress VSS, IV line in left forearm in tact and patent. Fluids running at 100mls/hr. Reports 10/ abdominal pain. PT incontinent of urine and stool. Stool sample collected. Pericare provided, purewick placed. PT medicated as per AUG. Plan of care ongoing
[2023-08-07] MEDS: Atorvastatin Calcium 80 MG TABLET PO (21:19)
[2023-08-08] VITALS (9 sets, daily range): BP systolic 91–144; BP diastolic 49–68; PULSE 69–87; RESP 14–18; TEMP 36.1–36.8; O2SAT 91–97; BMI 29.9
[2023-08-08] MEDS: 0.9 % Sodium Chloride 1,000 ML 100 ML IVCONT (01:25)
[2023-08-08] MEDS: Loperamide HCl 2 MG CAPSULE 4 MG PO (01:26)
[2023-08-08] MEDS: Morphine Sulfate 4 MG/ML CARTRIDGE IVPUSH ×4 (01:26→22:27)
[2023-08-08 05:49] LABS: Mean Corpuscular HGB Conc 32.1 g/dl (31.0-35.0); Mean Corpuscular Hemoglobin 25.9 pg (27.0-33.0); Mean Corpuscular Volume 80.7 fL (80.0-98.0); Mean Platelet Volume 10.5 fL (9.4-12.3); Platelet Count 134 X10*3/uL (160-400); Red Blood Count 3.47 X10*6/uL (4.20-5.50); Red Cell Distribution Width 17.5 % (11.0-16.0)
[2023-08-08 05:58] LABS: WBC ABN SCTR FOR CBC 1
[2023-08-08 06:01] LABS: White Blood Count 0.5 X10*3/uL (4.8-10.8)
[2023-08-08 06:02] LABS: Anion Gap 13 (12-20); Blood Urea Nitrogen 25 mg/dL (9-16); Calcium 8.1 mg/dL (8.4-10.2); Carbon Dioxide 19 mmol/L (22-29); Chloride 112 mmol/L (96-108); Creatinine Clr Calc Pharmacy 49.3; Estimated Glomerular Filt Rate 57; Glucose Random 176 mg/dL (60-115); Potassium 4.1 mmol/L (3.3-5.1); Sodium 140 mmol/L (135-145)
[2023-08-08] MEDS: Omeprazole 20 MG CAPSULE.DR PO (06:09)
[2023-08-08 06:26] LABS: Basophils Percent Manual 4 % (0-2); Eosinophils Percent Manual 6 % (0-4); Lymphocytes Absolute Manual 0.2 X10*3/uL (1.2-4.9); Lymphocytes Percent Manual 42 % (20-40); Monocytes Absolute Manual 0.2 X10*3/uL (0.1-1.2); Monocytes Percent Manual 38 % (2-11); Myelocytes Percent 2 %
[2023-08-08 06:28] LABS: Band Neutrophils Percent 2 % (3-5); Neutrophils Percent Manual 6 % (45-73); RBC Morphology NOTED
[2023-08-08 06:30] LABS: Burr Cells 3+ (>5) /OIF; Schistocytes 1+ (0-2) /OIF; Spherocytes 1+ (0-2) /OIF
[2023-08-08 06:31] LABS: Acanthocytes 3+ (>5) /OIF; Platelet Estimate DECREASED (NORMAL)
[2023-08-08 06:32] LABS: Large Platelet PRESENT; Platelet Morphology Comment NOTED
[2023-08-08] MEDS: Metoclopramide HCl 10 MG/2 ML VIAL IVPUSH ×3 (08:01→20:48)
[2023-08-08] MEDS: 0.9 % Sodium Chloride Flush 3 ML SYRINGE IVFLUSH (08:04)
--- NOTE | 2023-08-08 08:04 | PM.HEMONCCN ---
Subjective - Subjective Chief complaint: Consult for: Neutropenic bacteremia. Ovarian carcinoma. Patient: new to practice Consult date: 08/08/23 Requesting Physician: Jocelyn Francis. Primary Care Provider: Wojciech Billings MD Family Provider: LEONOR Medical Summary: DIAGNOSIS: 1. NEUTROPENIC BACTEREMIA. 2. OVARIAN CARCINOMA ON CHEMOTHERAPY. HPI - Consult Narrative Reason for consult: Consult for: Neutropenic bacteremia. 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 HPI: From review of recent medical records from [facility]: On June 25 patient was admitted to [facility]. CT scan of the abdomen revealed: Interval increase in peritoneal disease from May of 2023. Increasing peritoneal disease under the left hemidiaphragm, in the region of the greater omentum and left paracolic gutter. There is a new peritoneal soft tissue nodule in the region of the greater omentum just deep to the left anterior abdominal wall measuring 0.7 x 1.1 cm. No ascites. Filling defects in the stomach and 3rd portion of duodenum. Question food. Atrophic changes of the pancreas. CA 125 was 190. On 07/05 through 07/10/2023 was admitted to [facility] for evaluation of anemia and a question of GI bleeding. Upper endoscopy colonoscopy without etiology or bleeding. 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 She was recently started on carboplatin and paclitaxel every 21 days, 1st treatment 1 week ago. She presented to the ED for evaluation of significant weakness, epigastric pain, and diarrhea ongoing for 4 days. She developed worsening abd pain and found to be neutropenic. The patient reports she has been having 10+ episodes of watery diarrhea on a daily basis since ongoing since Saturday following initiation of chemotherapy regimen. There is associated 10/10 epigastric pain now rated 4/10 following narcotic frustration. Denies any fevers or chills. She is nauseous with occasional dry heaves in small volume vomitus. She is having difficulty tolerating PO. Following with Dr. Sanchez at [facility]. Here, VSS. Afebrile. She is neutropenic with WBC 0.5, AND 0.2. Bandemia 8%. Stable normocytic anemia. Renal function baseline, electrolyte levels normal. Glucose 161. AST 53, ALT 46, alkaline phosphatase 333. Procalcitonin 0.8. CT abdomen pelvis showed enhancing omental caking highly suspicious for malignant involvement as well as multiple regions of fluid within the pelvis, probably loculated can not entirely exclude enhancing mural nodule. There is also small amount of ascites. There is fluid visualized within the distal esophagus suggesting an element of reflux or dysmotility as well as mild concentric thickening involving the visualized distal esophagus. There is fluid throughout mildly dilated small bowel and large bowel as well as within the rectal vault suggestive of hyper secretion. There also small bilateral pleural effusions with associated dependent atelectasis right worse than left and anasarca. Review of Systems Review of Systems: General: No fevers, malaise, unintentional weight loss. +general weakness HEENT: No blurred vision, diplopia. No sore throat, nasal congestion, rhinorrhea, sinus pain, ear pain Cardiovascular: No chest pain, palpitations, or leg edema Respiratory: No shortness of breath, wheezing, cough GI: +abd pain, +nausea, +vomiting, +diarrhea. No constipation, melena, hematochezia : No dysuria, hematuria, increased urinary frequency, decreased urinary output MSK: No myalgia, back pain Neuro: No headaches, focal weakness, paresthesias Skin: No rashes or lesions [facility] Medical History: history of peripheral vascular disease, paroxysmal atrial fibrillation anticoagulated with Eliquis, iron deficiency anemia, CKD stage 3, GERD, hypertension, Gynecologic malignancy Carcinomatosis Atrial fibrillation with rapid ventricular response History of pneumonia Skin cancer Arthritis GERD (gastroesophageal reflux disease) Elevated cholesterol History of palpitations PVC (premature ventricular contraction) Essential hypertension Atrial arrhythmia Review of Systems - Constitutional Reports system reviewed and no additional complaints, except as documented, Reports anorexia, Reports fatigue, Reports lack of energy, Reports malaise, Reports poor appetite, Reports weight gain, Denies chills, Denies fever(s) - Eyes Reports system reviewed and no additional complaints, except as documented - ENT Reports system reviewed and no additional complaints, except as documented - Cardiovascular Reports system reviewed and no additional complaints, except as documented - Respiratory Reports no additional respiratory complaints - Gastrointestinal Reports system reviewed and no additional complaints, except as documented - Genitourinary Reports no additional female genitourinary complaints - Musculoskeletal Reports system reviewed and no additional complaints, except as documented - Integumentary/Breasts Skin/Breast: Reports no additional skin complaints - Neurologic Reports system reviewed and no additional complaints, except as documented - Psychiatric Reports system reviewed and no additional complaints, except as documented - Endocrine Reports no additional endocrine complaints - Hematologic/Lymphatic Reports system reviewed and no additional complaints, except as documented - Allergic/Immunologic Reports system reviewed and no additional complaints, except as documented Oncology Screenings - ECOG Performance Status ECOG Performance Status: 2 [facility] Medical History: Medical History (Last Reviewed 08/08/23 @ 09:44 by Wojciech Eisenberg MD) Arthritis Atrial arrhythmia Atrial fibrillation with rapid ventricular response Carcinomatosis Elevated cholesterol Essential hypertension GERD (gastroesophageal reflux disease) Gynecologic malignancy History of palpitations History of pneumonia PVC (premature ventricular contraction) Skin cancer Functional capacity: wheelchair bound Patient : No Family History: Family History (Last Reviewed 08/08/23 @ 09:44 by Wojciech Eisenberg MD) Father Esophageal cancer Mother No problems noted. Sister No problems noted. Surgical History: Surgical History (Last Reviewed 08/08/23 @ 09:44 by Wojciech Eisenberg MD) History of open reduction and internal fixation (ORIF) procedure History of rectal polypectomy Hx of colonoscopy Hx of dilation and curettage Hx of tonsillectomy S/P ablation of atrial fibrillation Social History: Social History (Last Reviewed 08/08/23 @ 09:44 by Wojciech Eisenberg MD) Living Situation History: Household Members: Other Household Members Other:: sister Housing: House Are you a primary senior care specialist to a significant other at home: No Do you presently have visiting nurse or other home services: No Tobacco History: Patient Tobacco Use Status: Never used Tobacco Advance Directives: Advance Directives Date on File: 12/19/21 Occupation Assessmet: service: No Current occupational status: employed Home Medications and Allergies Current Medications: Current Medications Acetaminophen (Acetaminophen 325 Mg Tablet) 650 mg PO Q6H PRN PRN Reason: Pain, Mild (Pain Scale 1-3) Last Admin: 08/06/23 17:55 Dose: 650 mg Apixaban (Apixaban 5 Mg Tablet) 5 mg PO BID FLAQUITA Last Admin: 08/07/23 21:19 Dose: 5 mg Atorvastatin Calcium (Atorvastatin Calcium 80 Mg Tablet) 80 mg PO BEDTIME FLAQUITA Last Admin: 08/07/23 21:19 Dose: 80 mg Loperamide HCl (Loperamide Hcl 2 Mg Capsule) 4 mg PO Q6H PRN PRN Reason: diarrhea Last Admin: 08/08/23 01:26 Dose: 4 mg Losartan Potassium (Losartan Potassium 25 Mg Tablet) 25 mg PO DAILY [facility]; Protocol Last Admin: 08/07/23 08:54 Dose: 25 mg Metoclopramide HCl (Metoclopramide Hcl 10 Mg/2 Ml Vial) 10 mg IVPUSH Q6H PRN PRN Reason: Nausea and Vomiting Last Admin: 08/08/23 08:01 Dose: 10 mg Metoprolol Succinate (Metoprolol Succinate Er 12.5 Mg Halftab.Er.24h) 12.5 mg PO DAILY [facility]; Protocol Last Admin: 08/07/23 10:45 Dose: 12.5 mg Morphine Sulfate (Morphine Sulfate 4 Mg/Ml Cartridge) 4 mg IVPUSH Q4H PRN; Protocol PRN Reason: Pain, Severe (Pain Scale 7-10) Last Admin: 08/08/23 08:01 Dose: 4 mg Omeprazole (Omeprazole 20 Mg Capsule.Dr) 20 mg PO DAILY@0630 [facility] Last Admin: 08/08/23 06:09 Dose: 20 mg Ondansetron HCl (Ondansetron Hcl 4 Mg/2 Ml Vial) 4 mg IVPUSH Q8H PRN PRN Reason: Nausea and Vomiting Last Admin: 08/07/23 16:36 Dose: 4 mg Oxycodone HCl (Oxycodone Hcl Immed Release 5 Mg Tablet) 5 mg PO Q4H PRN PRN Reason: Pain, Moderate(Pain Scale 4-6) Sodium Chloride (0.9 % Sodium Chloride Flush 3 Ml Syringe) [address] [facility] Last Admin: 08/08/23 01:24 Dose: Not Given Tbo-Filgrastim (Tbo-Filgrastim 300 Mcg/0.5 Ml Syringe) 300 mcg SUBCUT DAILY [facility] Home Medications Medication Instructions Recorded Confirmed Type losartan 25 mg tablet 25 mg PO DAILY 01/22/22 08/07/23 History loperamide 2 mg tablet 2 mg PO Q6H PRN Constipation 08/07/23 08/07/23 History omeprazole magnesium 20 mg 20 mg PO DAILY 08/07/23 08/07/23 History tablet,delayed release (Prilosec OTC) prochlorperazine maleate 10 mg 10 mg PO Q6H PRN nausea 08/07/23 08/07/23 History tablet Allergies Allergy/AdvReac Type Severity Reaction Status Date / Time succinylcholine AdvReac Severe Muscle Verified 07/01/23 11:05 [SUCCINYLCHOLINE] cramps ciprofloxacin AdvReac Nausea and Verified 07/01/23 11:05 Vomiting metronidazole [From Flagyl] AdvReac Nausea and Verified 07/01/23 11:05 Vomiting Physical Exam Vital signs: Vital Signs Temp 98.0 F 08/08/23 08:00 Pulse 86 08/08/23 08:00 Resp 18 08/08/23 08:01 BP 134/68 08/08/23 08:00 Pulse Ox 97 08/08/23 08:00 O2 Del Method Room Air 08/08/23 08:00 Intake & Output 08/07/23 08/08/23 08/08/23 18:59 06:59 18:59 Intake Total 1000 / 2166.666 1166.666 / 2166.666 Balance 1000 / 2166.666 1166.666 / 2166.666 Intake: Intake, Oral Amount 240 / 240 Intake, IV Amount 1000 / 1926.666 926.666 / 1926.666 0.9 % Sodium Chloride 1,000 ml 1000 / 1926.666 926.666 / 1926.666 @ 100 mls/hr IVCONT .Q10H [facility] Rx#:[id number] Other: Number of Incontinent Voids 2 Number of Bowel Movements 3 Stool Incontinent Weight 79 kg [place] Weight in Grams [id number] Weight 79 kg - Constitutional Present: moderate distress - Routine HEENT Exam Head: Present: normocephalic ENT: Present: mucous membranes moist - Routine Neck Exam Present: supple - Routine Respiratory Exam Present: decreased breath sounds - Routine Cardiovascular Exam Cardiovascular: Present: RRR, S1, S2 - Routine Abdominal Exam Present: distended, organomegaly, tenderness - Routine Extremities Exam Present: nontender Hem/Onc Consult Result - Labs CBC & Chem 7: 08/10/23 04:45 08/10/23 13:56 Labs: Short CBC 08/07/23 08/08/23 Range/Units 10:15 05:33 WBC 0.5 L* 0.5 L* (4.8-10.8) X10*3/uL Hgb 9.3 L 9.0 L (12.0-16.0) g/dl Hct 29.9 L 28.0 L (37.0-47.0) % Plt Count 193 D 134 L D (160-400) X10*3/uL BMP 08/07/23 08/08/23 10:15 05:33 Sodium 137 140 Potassium 4.4 4.1 Chloride 108 112 H Carbon Dioxide 20 L 19 L BUN 25 H 25 H Creatinine 0.82 0.94 Calcium 8.2 L 8.1 L Liver Function 08/07/23 Range/Units 10:15 Total Bilirubin 0.9 (0.0-1.0) mg/dL AST 53 H (5-31) U/L ALT 46 H (0-31) U/L Alkaline Phosphatase 333 H (39-117) U/L Albumin 2.1 L (3.5-5.0) g/dL Assessment and Plan Patient Active problem list reviewed?: Yes (1) Gynecologic malignancy Status: Acute Assessment and plan: 78-year-old lady, admitted to the hospital couple days ago. On June 25 patient was admitted to [facility]. CT scan of the abdomen revealed: Interval increase in peritoneal disease from May of 2023. Increasing peritoneal disease under the left hemidiaphragm, in the region of the greater omentum and left paracolic gutter. There is a new peritoneal soft tissue nodule in the region of the greater omentum just deep to the left anterior abdominal wall measuring 0.7 x 1.1 cm. No ascites. Filling defects in the stomach and 3rd portion of duodenum. Question food. Atrophic changes of the pancreas. CA 125 was 190. On 07/05 through 07/10/2023 was admitted to [facility] for evaluation of anemia and a question of GI bleeding. Upper endoscopy colonoscopy without etiology or bleeding. 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 She was recently started on carboplatin and paclitaxel every 21 days, 1st treatment 8 days ago. She has a PMH of PAF on eliquis, PAD, HTN, HLD< anemia, GERD, CKD, currently under care at 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 She notes she had her first chemo infusion last Saturday, then developed symptoms on Saturday of nausea, poor PO intake, foot pain. Her oncologist instructed her to take tylenol and offered oral narcotics but the patient will not take them (was prescribed vicodin). She is also not currently on vicodin. She has had infrequent loose stools and taking immodium. Her pain in her abdomen is pretty good. She lives at home with her sister. She has had ongoing diarrhea. CBC from yesterday: WBC 0.5, HGB 9, HCT 29, PLT 193. She was afebrile. She was admitted on account of generalized weakness and neutropenia. PLAN: To continue symptomatic management. She is receiving IV hydration, Imodium and antiemetics. She has been started on G-CSF to help promote recovery from the neutropenia. Will monitor her WBC count carefully, over time. She will need to have chemotherapy dose reduction, with her next cycle. Thank you, I will follow along with you, CC: - Time Spent With Patient Time Spent with Patient (in minutes): 30
--- NOTE | 2023-08-08 08:19 | P.PNIM_ITS ---
Subjective Subjective Date of Service: 08/08/23 Interval History: nasuea, abd pain Physical Exam 2 Vital Signs: Vital Signs: Last Vital Signs Temp 98.0 F 08/08/23 08:00 Pulse 86 08/08/23 08:00 Resp 18 08/08/23 08:01 BP 134/68 08/08/23 08:00 Pulse Ox 97 08/08/23 08:00 O2 Del Method Room Air 08/08/23 08:00 BMI result Body Mass Index 29.9 General: AO X 3, frail, in pain Resp: diminished bilateral, no accessory muscles used CVS: S1,S2,RRR GI: soft, tender, distended Neuro: motor grossly intact, alert Psych: appropriate affect, appropriate insight Objective Data Active Medications Acetaminophen (Acetaminophen 325 Mg Tablet) 650 mg PO Q6H PRN PRN Reason: Pain, Mild (Pain Scale 1-3) Last Admin: 08/06/23 17:55 Dose: 650 mg Documented By: VERITO Apixaban (Apixaban 5 Mg Tablet) 5 mg PO BID [facility] Last Admin: 08/07/23 21:19 Dose: 5 mg Documented By: ROS Atorvastatin Calcium (Atorvastatin Calcium 80 Mg Tablet) 80 mg PO BEDTIME [facility] Last Admin: 08/07/23 21:19 Dose: 80 mg Documented By: ROS Loperamide HCl (Loperamide Hcl 2 Mg Capsule) 4 mg PO Q6H PRN PRN Reason: diarrhea Last Admin: 08/08/23 01:26 Dose: 4 mg Documented By: JEAN Losartan Potassium (Losartan Potassium 25 Mg Tablet) 25 mg PO DAILY [facility]; Protocol Last Admin: 08/07/23 08:54 Dose: 25 mg Documented By: SHU Metoclopramide HCl (Metoclopramide Hcl 10 Mg/2 Ml Vial) 10 mg IVPUSH Q6H PRN PRN Reason: Nausea and Vomiting Last Admin: 08/08/23 08:01 Dose: 10 mg Documented By: KEENAN Metoprolol Succinate (Metoprolol Succinate Er 12.5 Mg Halftab.Er.24h) 12.5 mg PO DAILY [facility]; Protocol Last Admin: 08/07/23 10:45 Dose: 12.5 mg Documented By: SHU Morphine Sulfate (Morphine Sulfate 4 Mg/Ml Cartridge) 4 mg IVPUSH Q4H PRN; Protocol PRN Reason: Pain, Severe (Pain Scale 7-10) Last Admin: 08/08/23 08:01 Dose: 4 mg Documented By: KEENAN Omeprazole (Omeprazole 20 Mg Capsule.Dr) 20 mg PO DAILY@0630 [facility] Last Admin: 08/08/23 06:09 Dose: 20 mg Documented By: JEAN Ondansetron HCl (Ondansetron Hcl 4 Mg/2 Ml Vial) 4 mg IVPUSH Q8H PRN PRN Reason: Nausea and Vomiting Last Admin: 08/07/23 16:36 Dose: 4 mg Documented By: ENMANUELFEISAIAS Oxycodone HCl (Oxycodone Hcl Immed Release 5 Mg Tablet) 5 mg PO Q4H PRN PRN Reason: Pain, Moderate(Pain Scale 4-6) Sodium Chloride (0.9 % Sodium Chloride Flush 3 Ml Syringe) 3 ml IVFLUSH QSHIFT [facility] Last Admin: 08/08/23 08:04 Dose: 3 ml Documented By: KEENAN Tbo-Filgrastim (Tbo-Filgrastim 300 Mcg/0.5 Ml Syringe) 300 mcg SUBCUT DAILY [facility] Labs 08/08/23 05:33 08/08/23 05:33 Labs: Laboratory Results - last 24 hr 08/07/23 08/07/23 08/08/23 10:15 14:10 05:33 MCV 82.1 80.7 MCH 25.5 L 25.9 L MCHC 31.1 32.1 RDW 17.8 H 17.5 H Plt Count 193 D 134 L D MPV 10.1 10.5 Immature Gran % (Auto) Cancelled Cancelled Neut % (Auto) Cancelled Cancelled Lymph % (Auto) Cancelled Cancelled [place] % (Auto) Cancelled Cancelled Eos % (Auto) Cancelled Cancelled Baso % (Auto) Cancelled Cancelled Lymph # (Auto) Cancelled Cancelled [place] # (Auto) Cancelled Cancelled Eos # (Auto) Cancelled Cancelled Baso # (Auto) Cancelled Cancelled Abs Immat Gran (auto) Cancelled Cancelled Absolute Neuts (auto) Cancelled Cancelled Absolute Nucleated RBC 0.000 0.000 Nucleated RBC % (auto) 0.0 0.0 Neutrophils % (Manual) 24 L 6 L Band Neutrophils % 8 H 2 L Lymphocytes % (Manual) 48 H 42 H Monocytes % (Manual) 16 H 38 H Eosinophils % (Manual) 4 6 H Basophils % (Manual) 4 H Myelocytes % 2 Abs Neuts (Manual) 0.2 L Not Reportable Lymphocytes # (Manual) 0.2 L 0.2 L Monocytes # (Manual) 0.1 0.2 Platelet Estimate NORMAL DECREASED Large Platelets PRESENT Plt Morphology Comment NORMAL NOTED RBC Morphology NOTED NOTED Spherocytes 1+ (0-2) Gaye Cells 3+ (>5) 3+ (>5) Acanthocytes (Spur) 3+ (>5) 3+ (>5) Schistocytes 1+ (0-2) 1+ (0-2) Anion Gap 13 13 Estim Creat Clear Calc 56.4 49.3 Estimated GFR > 60 57 Random Glucose 161 H 176 H Lactic Acid 1.7 Calcium 8.2 L 8.1 L Magnesium 1.9 Total Bilirubin 0.9 AST 53 H ALT 46 H Alkaline Phosphatase 333 H Total Protein 5.9 L Albumin 2.1 L Lipase 4 L Procalcitonin 0.80 Microbiology Microbiology Results: Microbiology 08/06/23 Unknown Urine Culture - Final Urine clean catch - Urine beckman top Assessment and Plan (1) Neutropenia: Status: Acute Plan 78F PMH pvd, pafib, ckd 3, gerd, htb, 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 presented with diarrhea, n/v diarrhea, nausea, and vomiting due to chemotherapy iv fluids, antiemetics cdif negative imodium neutropenia due to chemo no fever continue neupogen, monitor stage iv ovarian cancer with abd carcinomatosis hem/onc eval pain control Ir for loculated ascites paroxysmal afib metoprolol, eliquis htn metoprolol, losartan hld statin gerd ppi dvt prophylaxis- eliquis full code reason for continued hospitalization: not tolerating po Quality Stroke Does the patient have a stroke diagnosis?: No VTE Prior VTE?: No VTE Risk Level:: Medical - moderate - high VTE Device Contraindication: Treatment Not Indicated VTE Drug Contraindication: N/A - Med Ordered
[2023-08-08] MEDS: Apixaban 5 MG TABLET PO (08:34)
[2023-08-08] MEDS: Losartan Potassium 25 MG TABLET PO (08:34)
[2023-08-08] MEDS: Metoprolol Succinate ER 12.5 MG HALFTAB.ER.24H PO (08:34)
--- NOTE | 2023-08-08 09:41 | PM.CNGS ---
History of Present Illness Consult details Consult date: 08/08/23 Narrative: [age] year old female admitted because of multiple issues. 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 She is being followed by the gyne service in [facility]. She had been started on chemotherapy with carboplatin and paclitaxel. However, she has had multiple problems including diarrhea, progressive weakness, shortness of breath and abdominal pain thereafter. She had a CAT scan showing carcinomatosis, omental caking, fluid collections in the pelvis. She says that she has had multiple problems since about April of last year and she says there health has been on a downward spiral since then. She had been admitted to [facility] for severe diarrhea in May. Review of Systems Constitutional: Constitutional: Reports fatigue, Reports lethargy, Reports malaise and Reports poor appetite Cardiovascular: Cardiovascular: Reports dyspnea and Reports dyspnea on exertion Respiratory: Respiratory: Reports dyspnea and Reports dyspnea on exertion Gastrointestinal: Gastrointestinal: Reports abdominal pain Genitourinary: Genitourinary: Denies urinary frequency Musculoskeletal: Musculoskeletal: Reports muscle weakness Endocrine: Endocrine: Reports fatigue PMFSH Past Medical History Medical History Gynecologic malignancy Carcinomatosis Atrial fibrillation with rapid ventricular response History of pneumonia Skin cancer Arthritis GERD (gastroesophageal reflux disease) Elevated cholesterol History of palpitations PVC (premature ventricular contraction) Essential hypertension Atrial arrhythmia Family History Family History Father Esophageal cancer Mother No problems noted. Sister No problems noted. Surgical History Surgical History S/P ablation of atrial fibrillation History of rectal polypectomy Hx of dilation and curettage Hx of colonoscopy History of open reduction and internal fixation (ORIF) procedure Hx of tonsillectomy Social History Social History Household Members: Other Household Members Other:: sister Housing: House Are you a primary respiratory care faculty to a significant other at home: No Do you presently have visiting nurse or other home services: No Comment: 1:1 sitter for line pulling Patient Tobacco Use Status: Never used Tobacco Advance Directives Date on File: 12/19/21 service: No Current occupational status: employed Meds Allergies Allergy/AdvReac Type Severity Reaction Status Date / Time succinylcholine AdvReac Severe Muscle Verified 07/01/23 11:05 [SUCCINYLCHOLINE] cramps ciprofloxacin AdvReac Nausea and Verified 07/01/23 11:05 Vomiting metronidazole [From Flagyl] AdvReac Nausea and Verified 07/01/23 11:05 Vomiting Active Medications: Current Medications Acetaminophen (Acetaminophen 325 Mg Tablet) 650 mg PO Q6H PRN PRN Reason: Pain, Mild (Pain Scale 1-3) Last Admin: 08/06/23 17:55 Dose: 650 mg Apixaban (Apixaban 5 Mg Tablet) 5 mg PO BID PENDING SALE TO [facility] Last Admin: 08/08/23 08:34 Dose: 5 mg Atorvastatin Calcium (Atorvastatin Calcium 80 Mg Tablet) 80 mg PO BEDTIME PENDING S[facility] TO [facility] Last Admin: 08/07/23 21:19 Dose: 80 mg Loperamide HCl (Loperamide Hcl 2 Mg Capsule) 4 mg PO Q6H PRN PRN Reason: diarrhea Last Admin: 08/08/23 01:26 Dose: 4 mg Losartan Potassium (Losartan Potassium 25 Mg Tablet) 25 mg PO DAILY PENDING SALE TO [facility]; Protocol Last Admin: 08/08/23 08:34 Dose: 25 mg Metoclopramide HCl (Metoclopramide Hcl 10 Mg/2 Ml Vial) 10 mg IVPUSH Q6H PRN PRN Reason: Nausea and Vomiting Last Admin: 08/08/23 08:01 Dose: 10 mg Metoprolol Succinate (Metoprolol Succinate Er 12.5 Mg Halftab.Er.24h) 12.5 mg PO DAILY PENDING S[facility] TO [facility]; Protocol Last Admin: 08/08/23 08:34 Dose: 12.5 mg Morphine Sulfate (Morphine Sulfate 4 Mg/Ml Cartridge) 4 mg IVPUSH Q4H PRN; Protocol PRN Reason: Pain, Severe (Pain Scale 7-10) Last Admin: 08/08/23 08:01 Dose: 4 mg Omeprazole (Omeprazole 20 Mg Capsule.Dr) 20 mg PO DAILY@0630 PEND[facility] TO [facility] Last Admin: 08/08/23 06:09 Dose: 20 mg Ondansetron HCl (Ondansetron Hcl 4 Mg/2 Ml Vial) 4 mg IVPUSH Q8H PRN PRN Reason: Nausea and Vomiting Last Admin: 08/07/23 16:36 Dose: 4 mg Oxycodone HCl (Oxycodone Hcl Immed Release 5 Mg Tablet) 5 mg PO Q4H PRN PRN Reason: Pain, Moderate(Pain Scale 4-6) Sodium Chloride (0.9 % Sodium Chloride Flush 3 Ml Syringe) 3 ml IVFLUSH QSHIFT PENDING SALE TO [facility] Last Admin: 08/08/23 08:04 Dose: 3 ml Tbo-Filgrastim (Tbo-Filgrastim 300 Mcg/0.5 Ml Syringe) 300 mcg SUBCUT DAILY PENDING SALE TO [facility] Home Medications Medication Instructions Recorded Confirmed Last Taken Type losartan 25 mg tablet 25 mg PO DAILY 01/22/22 08/07/23 08/07/23 History loperamide 2 mg tablet 2 mg PO Q6H PRN Constipation 08/07/23 08/07/23 08/06/23 History omeprazole magnesium 20 mg 20 mg PO DAILY 08/07/23 08/07/23 08/07/23 History tablet,delayed release (Prilosec OTC) prochlorperazine maleate 10 mg 10 mg PO Q6H PRN nausea 08/07/23 08/07/23 Unknown History tablet Physical Exam Vital Signs: Vital Signs: Last Vital Signs Temp 98.0 F 08/08/23 08:00 Pulse 86 08/08/23 09:07 Resp 18 08/08/23 08:01 BP 134/68 08/08/23 09:07 Pulse Ox 97 08/08/23 09:07 O2 Del Method Room Air 08/08/23 08:00 BMI result Body Mass Index 29.9 Const: Other: Appears frail and weak, some shortness of breath Orientation/consciousness: patient oriented x3 Resp: Other: Short of breath Cardio: Rate: regular rate GI: Other: Soft, diffuse tenderness, no guarding rebound Neuro: General: patient oriented x3 Results Labs 08/10/23 04:45 08/10/23 13:56 Labs: Abnormal lab results 08/07/23 08/08/23 Range/Units 10:15 05:33 WBC 0.5 L* 0.5 L* (4.8-10.8) X10*3/uL RBC 3.64 L 3.47 L (4.20-5.50) X10*6/uL Hgb 9.3 L 9.0 L (12.0-16.0) g/dl Hct 29.9 L 28.0 L (37.0-47.0) % MCH 25.5 L 25.9 L (27.0-33.0) pg RDW 17.8 H 17.5 H (11.0-16.0) % Plt Count 134 L D (160-400) X10*3/uL Neutrophils % (Manual) 24 L 6 L (45-73) % Band Neutrophils % 8 H 2 L (3-5) % Lymphocytes % (Manual) 48 H 42 H (20-40) % Monocytes % (Manual) 16 H 38 H (2-11) % Eosinophils % (Manual) 6 H (0-4) % Basophils % (Manual) 4 H (0-2) % Abs Neuts (Manual) 0.2 L (2.0-8.3) X10*3/uL Lymphocytes # (Manual) 0.2 L 0.2 L (1.2-4.9) X10*3/uL Chloride 112 H (96-108) mmol/L Carbon Dioxide 20 L 19 L (22-29) mmol/L BUN 25 H 25 H (9-16) mg/dL Random Glucose 161 H 176 H (60-115) mg/dL Calcium 8.2 L 8.1 L (8.4-10.2) mg/dL AST 53 H (5-31) U/L ALT 46 H (0-31) U/L Alkaline Phosphatase 333 H (39-117) U/L Total Protein 5.9 L (6.5-8.0) g/dL Albumin 2.1 L (3.5-5.0) g/dL Lipase 4 L (8-78) U/L Short CBC 08/07/23 08/08/23 Range/Units 10:15 05:33 WBC 0.5 L* 0.5 L* (4.8-10.8) X10*3/uL Hgb 9.3 L 9.0 L (12.0-16.0) g/dl Hct 29.9 L 28.0 L (37.0-47.0) % Plt Count 193 D 134 L D (160-400) X10*3/uL BMP 08/07/23 08/08/23 10:15 05:33 Sodium 137 140 Potassium 4.4 4.1 Chloride 108 112 H Carbon Dioxide 20 L 19 L BUN 25 H 25 H Creatinine 0.82 0.94 Calcium 8.2 L 8.1 L Liver Function 08/07/23 Range/Units 10:15 Total Bilirubin 0.9 (0.0-1.0) mg/dL AST 53 H (5-31) U/L ALT 46 H (0-31) U/L Alkaline Phosphatase 333 H (39-117) U/L Albumin 2.1 L (3.5-5.0) g/dL Urine 08/06/23 Range/Units 09:23 Urine Color Dark Yellow Urine Appearance Cloudy Urine pH 5.0 (5.0-9.0) Ur Specific [place] 1.020 (1.005-1.025) Urine Protein 30 (1+) H (Neg-Trace) mg/dL Urine Glucose (UA) Negative (Negative) mg/dL All other labs normal. Assessment and Plan (1) Carcinomatosis: Status: Acute Plan I have reviewed her CAT scan and this shows carcinomatosis, omental caking from a pelvic origin along with collections in the low pelvis. I have shown this to the IR service. This does not appear to be an abscess and more likely to be ascitic fluid with some loculations. Unfortunately, she appears to have advanced disease. She has multiple other medical problems as well including significant neutropenia, shortness of breath, chronic kidney disease and atrial fibrillation. She has developed severe diarrhea after chemotherapy. I have asked the hematology oncology service to here for opinion as to what the best course of treatment might be. No surgical intervention is indicated at this time. Procedures Date of Service Date of Service: 08/13/23
--- NOTE | 2023-08-08 12:37 | MHC.CM.PN ---
IMM DELIVERED. PATIENT IS FROM HOME W/ SISTER (WHO RECENTLY SUFFERED A STROKE). 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 NO SERVICES OR DME. RECENTLY STARTED CHEMO AT [facility] 07/31. PCP ALEN GALVEZ MD HCP BROTHER SHAZIA - ON FILE AND VERIFIED DP: PT REC HOME VS STR. PATIENT AGREEABLE TO STR AT THIS TIME, BUT IF WEAKNESS IMPROVES WOULD PREFER TO GO HOME. CHOICES ARE 1)[facility] 2) [facility] 3)[facility]. REFERRALS SENT VIA [facility]. CM WILL CONTINUE TO FOLLOW.
[2023-08-08] MEDS: ondansetron HCL 4 MG/2 ML VIAL IVPUSH (13:14)
[2023-08-08] MEDS: Dextrose 5 % and Lactated Ring 1,000 ML 80 ML IVCONT (13:15)
[2023-08-08] MEDS: Tbo-Filgrastim 300 MCG/0.5 ML SYRINGE SUBCUT (17:39)
--- NOTE | 2023-08-08 23:45 | PC.NURSE ---
Addendum entered by Julia Pinon RN 08/09/23 03:40: patient still with fine crackles, alert and oriented but drowsy, currently 93-95 on 3L, vss, will cont to monitor Original Note: went in to see patient and patient was very drowsy, complaining of sob, crackles heard, sat 80 on RA, applied 3L NC and sats up to 90-93, MD called to bedside and stat labs and stat cxr ordered, awaiting results
[2023-08-08 23:50] LABS: Venous Blood Gas Refer to POC result
[2023-08-08 23:55] LABS: VBG Base Excess -6.2 mmol/L; VBG HCO3 18 mmol/L (22-26); VBG pCO2 35 mmHg; VBG pH 7.33 (7.32-7.43); VBG pO2 42 mmHg
[2023-08-09] VITALS (59 sets, daily range): BP systolic 57–118; BP diastolic 22–54; PULSE 74–129; RESP 12–25; TEMP 36.2–37.2; O2SAT 90–98
[2023-08-09 00:10] LABS: B Type Natriuretic Peptide 336 pg/mL (<100)
--- NOTE | 2023-08-09 05:24 | PM.EVENT ---
Event Note Date of Service: 08/09/23 Event Note: Was notified by the nurse that patient was satting 80% on room air. Upon evaluation, patient with tachypnea and satting 92% on 3 L. Blood pressure within normal limits. Obtained chest x-ray and ABG. Patient with slight improvement in tachypnea and dyspnea after deep suctioning. Concern for aspiration pneumonitis / pneumonia. Patient reinforced that she would like to remain full code that would include intubation. Discussed case with Dr. Campo, ICU team to assess the patient with low threshold to transfer. Time Spent With Patient Time: Total time managing care of this patient today ____ minutes.
[2023-08-09] MEDS: Metoclopramide HCl 10 MG/2 ML VIAL IVPUSH (05:25)
--- NOTE | 2023-08-09 05:29 | PC.NURSE ---
Addendum entered by Julia Pinon, RN 08/09/23 06:04: ship washer saw patient and believes she is stable for med surg at this time, will resume ivf per md order Original Note: md at bedside to reassess patient, still with rhonchi throughout, respiratory at bedside to suction and patient did spit up some green bile, family notified per patient request to come in this am to speak about addressing code status, ship washer called by Dr Arenas to come assess patient
[2023-08-09 05:37] LABS: Hematocrit 31.7 % (37.0-47.0); Hemoglobin 9.6 g/dl (12.0-16.0); Mean Corpuscular HGB Conc 30.3 g/dl (31.0-35.0); Mean Corpuscular Hemoglobin 25.1 pg (27.0-33.0); Mean Corpuscular Volume 82.8 fL (80.0-98.0); Platelet Count 107 X10*3/uL (160-400); Red Blood Count 3.83 X10*6/uL (4.20-5.50)
[2023-08-09 05:44] LABS: White Blood Count 1.1 X10*3/uL (4.8-10.8)
[2023-08-09 05:59] LABS: Anion Gap 16 (12-20); Blood Urea Nitrogen 39 mg/dL (9-16); Calcium 8.5 mg/dL (8.4-10.2); Carbon Dioxide 19 mmol/L (22-29); Chloride 110 mmol/L (96-108); Creatinine Clr Calc Pharmacy 26.4; Estimated Glomerular Filt Rate 28; Glucose Fasting 167 mg/dL (60-99); Potassium 4.1 mmol/L (3.3-5.1); Sodium 141 mmol/L (135-145)
[2023-08-09 06:03] LABS: Troponin-I High Sensitivity 6.7 ng/L (<3.5-17.0)
--- NOTE | 2023-08-09 06:36 | PM.EVENT ---
Documented by User: Haven Lincoln NP 08/09/23 06:43 Event Note Date of Service: 08/09/23 Event Note: I was asked to see the patient for concerns of tachypnea/hypoxia. On my assessment the patient was oriented, answering questions appropriately, following commands. Respiratory rate 18. O2 sat 100% on 3 L nasal cannula. Lung sounds with rhonchi throughout. The patient reports that she vomited and thinks that she aspirated, but does report feeling better after nasopharyngeal suctioning. No need for transfer to ICU at this time. Time Spent With Patient Time: Total time managing care of this patient today ____ minutes. Documented by User: Александр Campo MD 08/10/23 10:51 Event Note Date of Service: 08/10/23
[2023-08-09 07:23] LABS: Glucose, Whole Blood 136 mg/dL (60-115)
[2023-08-09] MEDS: ondansetron HCL 4 MG/2 ML VIAL IVPUSH (07:25)
--- NOTE | 2023-08-09 07:28 | HO.PM.IMPN ---
Subjective Subjective Date of Service: 08/09/23 Interval History: GEOLOGICAL MANAGER called around 715am for AMS, hypoxia - 90 on 15L, hypotension SBP 70s Physical Exam Vital Signs: Vital Signs: Last Vital Signs Temp 98.5 F 08/09/23 03:37 Pulse 91 08/09/23 03:37 Resp 16 08/09/23 03:37 BP 118/54 L 08/09/23 03:37 Pulse Ox 95 08/09/23 03:37 O2 Del Method Nasal Cannula 08/09/23 03:37 O2 Flow Rate 2 08/09/23 03:37 BMI result Body Mass Index 29.9 lethargic, ill appearing crackles bilateral abd distended Objective Data Active Medications Acetaminophen (Acetaminophen 325 Mg Tablet) 650 mg PO Q6H PRN PRN Reason: Pain, Mild (Pain Scale 1-3) Last Admin: 08/06/23 17:55 Dose: 650 mg Documented By: VERITO Apixaban (Apixaban 5 Mg Tablet) 5 mg PO BID [facility] Last Admin: 08/08/23 21:36 Dose: Not Given Documented By: LINCOLN Non-Admin Reason: Patient Refused Atorvastatin Calcium (Atorvastatin Calcium 80 Mg Tablet) 80 mg PO BEDTIME [facility] Last Admin: 08/08/23 21:36 Dose: Not Given Documented By: LINCOLN Non-Admin Reason: Patient Refused Dextrose/Lactated Ringer's (D5lr) 1,000 mls @ 80 mls/hr IVCONT .[id number] [facility] Last Infusion: 08/09/23 05:29 Dose: Infused Documented By: LANA Loperamide HCl (Loperamide Hcl 2 Mg Capsule) 4 mg PO Q6H PRN PRN Reason: diarrhea Last Admin: 08/08/23 01:26 Dose: 4 mg Documented By: JEAN Losartan Potassium (Losartan Potassium 25 Mg Tablet) 25 mg PO DAILY [facility]; Protocol Last Admin: 08/08/23 08:34 Dose: 25 mg Documented By: TEMI Metoclopramide HCl (Metoclopramide Hcl 10 Mg/2 Ml Vial) 10 mg IVPUSH Q6H PRN PRN Reason: Nausea and Vomiting Last Admin: 08/09/23 05:25 Dose: 10 mg Documented By: LANA Metoprolol Succinate (Metoprolol Succinate Er 12.5 Mg Halftab.Er.24h) 12.5 mg PO DAILY [facility]; Protocol Last Admin: 08/08/23 08:34 Dose: 12.5 mg Documented By: TEMI Morphine Sulfate (Morphine Sulfate 4 Mg/Ml Cartridge) 4 mg IVPUSH Q4H PRN; Protocol PRN Reason: Pain, Severe (Pain Scale 7-10) Last Admin: 08/08/23 22:27 Dose: 4 mg Documented By: LINCOLN Omeprazole (Omeprazole 20 Mg Capsule.Dr) 20 mg PO DAILY@0630 [facility] Last Admin: 08/09/23 05:26 Dose: Not Given Documented By: LANA Non-Admin Reason: unable to swallow Ondansetron HCl (Ondansetron Hcl 4 Mg/2 Ml Vial) 4 mg IVPUSH Q8H PRN PRN Reason: Nausea and Vomiting Last Admin: 08/09/23 07:25 Dose: 4 mg Documented By: KEENAN Oxycodone HCl (Oxycodone Hcl Immed Release 5 Mg Tablet) 5 mg PO Q4H PRN PRN Reason: Pain, Moderate(Pain Scale 4-6) Sodium Chloride (0.9 % Sodium Chloride Flush 3 Ml Syringe) 3 ml IVFLUSH QSHIFT [facility] Last Admin: 08/09/23 01:35 Dose: Not Given Documented By: LANA Non-Admin Reason: IV Running Tbo-Filgrastim (Tbo-Filgrastim 300 Mcg/0.5 Ml Syringe) 300 mcg SUBCUT DAILY [facility] Last Admin: 08/08/23 17:39 Dose: 300 mcg Documented By: KEENAN Labs 08/09/23 05:20 08/09/23 05:20 Labs: Laboratory Results - last 24 hr 08/08/23 08/08/23 08/09/23 23:44 23:48 05:20 MCV 82.8 MCH 25.1 L MCHC 30.3 L RDW 18.0 H Plt Count 107 L MPV 12.0 Absolute Nucleated RBC 0.000 Nucleated RBC % (auto) 0.0 VBG pH 7.33 VBG pCO2 35 VBG pO2 42 VBG HCO3 18 L VBG O2 Saturation 63.0 VBG Base Excess -6.2 Anion Gap 16 Estim Creat Clear Calc 26.4 Estimated GFR 28 POC Glucose Fasting Glucose 167 H Calcium 8.5 Troponin I High Sens 6.7 D B-Natriuretic Peptide 336 H 08/09/23 07:16 MCV MCH MCHC RDW Plt Count MPV Absolute Nucleated RBC Nucleated RBC % (auto) VBG pH VBG pCO2 VBG pO2 VBG HCO3 VBG O2 Saturation VBG Base Excess Anion Gap Estim Creat Clear Calc Estimated GFR POC Glucose 136 H Fasting Glucose Calcium Troponin I High Sens B-Natriuretic Peptide Microbiology Microbiology Results: Microbiology 08/07/23 14:10 Blood Culture - Preliminary Blood - Venous No growth after 24 hours. 08/07/23 14:10 Blood Culture - Preliminary Blood - Venous No growth after 24 hours. Assessment and Plan (1) Neutropenia: Status: Acute Plan 78F PMH pvd, pafib, ckd 3, gerd, htb, 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 presented with diarrhea, n/v, now with ams, hypoxia, hypotension acute hypoxic respiratory failure due to aspiration pneumonitis complicated by acute metabolic encephalopathy and hypotension no sepsis (neturopenia due to chemo, tachypnea due to hypoxia, tachycardia due to hypovolemia from vomiting/diarrhea) transfering to ICU diarrhea, nausea, and vomiting due to chemotherapy iv fluids, antiemetics cdif negative imodium neutropenia due to chemo no fever continue neupogen, monitor stage iv ovarian cancer with abd carcinomatosis hem/onc appreciated pain control paroxysmal afib on eliquis htn holding metoprolol and losartan hld statin gerd ppi dvt prophylaxis- eliquis full code reason for continued hospitalization: hypotension Quality Stroke Does the patient have a stroke diagnosis?: No VTE Prior VTE?: No VTE Risk Level:: Medical - moderate - high VTE Device Contraindication: Treatment Not Indicated VTE Drug Contraindication: N/A - Med Ordered
[2023-08-09 07:31] LABS: ABG Base Excess -7.8 mmol/L; ABG HCO3 16 mmol/L (22-26); ABG pCO2 27 mmHg (32-45); ABG pH 7.36 (7.35-7.45); ABG pO2 95 mmHg (83-108)
--- NOTE | 2023-08-09 07:51 | PC.NURSE ---
Pt. seen by this Nurse this am, lethargic, mild confusion asking about family member ride, pale, cold, audible rhonchi on 2L NC, vitals taken BP 78/43 and 85/45, HR 106, T 97.5, 92% 2L. RR called.
[2023-08-09] MEDS: Norepinephrine Bitartrate/D5W 8 MG/250 ML PLAST..BAG 7.41 MG IV ×2 (08:19→11:50)
[2023-08-09 08:38] LABS: ABG Refer to POC result
[2023-08-09] MEDS: 0.9 % Sodium Chloride Flush 3 ML SYRINGE IVFLUSH (08:43)
[2023-08-09] MEDS: Amiodarone/Dextrose 150 MG/100 ML PLAST..BAG 600 MG IV (09:26)
[2023-08-09] MEDS: Phenylephrine HCL 20 MG in 0.9 % Sodium Chloride 250 ML 29.86 MG IVCONT (09:26)
[2023-08-09] MEDS: Amiodarone HCL 900 MG in 0.9 % Sodium Chloride 500 ML 34.53 MG IVCONT (09:49)
--- NOTE | 2023-08-09 10:08 | MHC.CM.PN ---
EMR [id number], PT TRANSFERRED FROM MED SURG, PT ADMITTED W/NVD AFTER STARTING CHEMO APPROX ONE WK AGO, PT LETHARGIC ON PRESSORS, 15L O2 ON OXY MASK, NGT IN PLACE/NPO FOR NOW, NO PLAN FOR DC AT THIS TIME, CM WILL CONT TO FOLLOW DC NEEDS.
[2023-08-09] MEDS: Morphine Sulfate 4 MG/ML CARTRIDGE IVPUSH (10:49)
--- NOTE | 2023-08-09 10:55 | P.PNCC_ITS ---
Subjective Subjective Date of Service: 08/09/23 Interval History: 78-year-old lady with underlying PVD, paroxysmal AFib on Eliquis, CKD stage 3, hypertension, carcinomatosis on carboplatin/paclitaxel 1st treatment approximately 1 week prior admitted on 08/07/23 with weakness, epigastric pain, and diarrhea admitted to general medical ruiz. CT abdomen with likely bursitis, evaluated by General surgery with no plans for procedures. Treated with opioids for underlying pain. Overnight with nausea and vomiting, and several episodes of aspiration of gastric contents with resultant hypoxia and hypotension, transferred to intensive care unit. NG tube placed with drainage of approximately 1.2 L of feculent fluid with improvement in nausea. Requiring initiation of pressor support. Critical Care Time (minutes): 90 Physical Exam 2 Vital Signs: Vital Signs: Last Vital Signs Temp 98.9 F 08/09/23 08:48 Pulse 90 08/09/23 10:00 Resp 25 H 08/09/23 10:00 BP 103/54 L 08/09/23 10:00 Pulse Ox 94 08/09/23 10:00 O2 Del Method Oxymask 08/09/23 10:00 O2 Flow Rate 15 08/09/23 10:00 Oxygen Flow Rate 10 08/09/23 08:00 BMI result Body Mass Index 29.9 Const: General: no acute distress, alert and awake Eyes: Sclerae: sclerae normal EOM: EOMs intact bilaterally Neck: Neck: Yes no lymphadenopathy, Yes trachea midline and Yes supple Resp: Effort & Inspection: normal respiratory effort and no respiratory distress Auscultation: clear to auscultation bilaterally Cardio: Rate: regular rate Rhythm: regular rhythm Heart sounds: no gallops, no murmurs and no rubs GI: Palpation (GI): Soft to palpation, Tenderness to palpation present (GI) (Mild diffuse), no guarding and not rigid Auscultation: normal bowel sounds Extrem: General: Yes no pedal edema, No clubbing and No cyanosis Objective Data Labs 08/09/23 05:20 08/09/23 05:20 Labs: Laboratory Results - last 24 hr 08/08/23 08/08/23 08/09/23 23:44 23:48 05:20 WBC 1.1 L RBC 3.83 L Hgb 9.6 L Hct 31.7 L MCV 82.8 MCH 25.1 L MCHC 30.3 L RDW 18.0 H Plt Count 107 L MPV 12.0 Absolute Nucleated RBC 0.000 Nucleated RBC % (auto) 0.0 O2 Saturation ABG pH at Pt Temp ABG pCO2 at Pt Temp ABG pO2 at Pt Temp ABG HCO3 ABG Base Excess (Actual) VBG pH 7.33 VBG pCO2 35 VBG pO2 42 VBG HCO3 18 L VBG O2 Saturation 63.0 VBG Base Excess -6.2 Sodium 141 Potassium 4.1 Chloride 110 H Carbon Dioxide 19 L Anion Gap 16 BUN 39 H Creatinine 1.76 H Estim Creat Clear Calc 26.4 Estimated GFR 28 POC Glucose Fasting Glucose 167 H Calcium 8.5 Troponin I High Sens 6.7 D B-Natriuretic Peptide 336 H 08/09/23 08/09/23 07:16 07:23 WBC RBC Hgb Hct MCV MCH MCHC RDW Plt Count MPV Absolute Nucleated RBC Nucleated RBC % (auto) O2 Saturation 97.0 ABG pH at Pt Temp 7.36 ABG pCO2 at Pt Temp 27 L ABG pO2 at Pt Temp 95 ABG HCO3 16 L ABG Base Excess (Actual) -7.8 VBG pH VBG pCO2 VBG pO2 VBG HCO3 VBG O2 Saturation VBG Base Excess Sodium Potassium Chloride Carbon Dioxide Anion Gap BUN Creatinine Estim Creat Clear Calc Estimated GFR POC Glucose 136 H Fasting Glucose Calcium Troponin I High Sens B-Natriuretic Peptide Microbiology Microbiology Results: Microbiology 08/07/23 14:10 Blood - Venous Blood Culture - Preliminary No growth after 24 hours. 08/07/23 14:10 Blood - Venous Blood Culture - Preliminary No growth after 24 hours. 08/06/23 Unknown Urine clean catch - Urine beckman top Urine Culture - Final Progress Note: A&P Assessment and plan (1) Ileus: Status: Acute (2) Neutropenia: Status: Acute (3) Carcinomatosis: Status: Acute (4) PAF (paroxysmal atrial fibrillation): Status: Acute (5) PVD (peripheral vascular disease): Status: Acute (6) Gynecologic malignancy: Status: Acute Plan Assessment: 78-year-old lady with carcinomatosis with source recently started on carboplatin/paclitaxel admitted with weakness/diarrhea further complicated by ileus versus partial SBO and pulmonary aspiration Plan: Neuro: No acute issues. Cardiac: Hypotension secondary to intravascular volume depletion on the background of GI hypersecretion after chemotherapy. Continue to titrate off pressor support as tolerated. Continue colloidal support. Pulmonary: Acute hypoxic respiratory failure secondary to pulmonary aspiration of gastric content. Continue to titrate off supplemental oxygen as tolerated. Renal: Acute kidney injury secondary to intravascular volume depletion. Non oliguric. Continue to monitor renal indices and urine output. Endo: No acute issues. GI: Nausea and vomiting secondary to ileus versus partial SBO. Improved with placement of NG tube. Likely post chemotherapy effect. ID: No evidence of sepsis. Empirically covered for pulmonary aspiration pneumonitis on the background of neutropenia from chemotherapy. Heme/Onc: Underlying carcinomatosis under care of [facility] gynecology- oncology. Status post 1st dose of carboplatin/paclitaxel approximately 1 week prior with resultant neutropenia. Continue filgrastim. Psych: No acute issues. Miscellaneous: No acute issues. Prophylaxis: Eliquis Diet: NPO Critical care time spent: 90 Quality Stroke Does the patient have a stroke diagnosis?: No VTE Prior VTE?: No VTE Risk Level:: Medical - moderate - high VTE Device Contraindication: Treatment Not Indicated VTE Drug Contraindication: N/A - Med Ordered
[2023-08-09] MEDS: Phenylephrine HCL 100 MG in 0.9 % Sodium Chloride 250 ML 6.16 MG IVCONT (11:11)
[2023-08-09] MEDS: Phenylephrine HCL 20 MG in 0.9 % Sodium Chloride 250 ML 358.34 MG IVCONT (11:18)
[2023-08-09 11:38] LABS: VBG HCO3 14 mmol/L (22-26); VBG pCO2 28 mmHg; VBG pH 7.32 (7.32-7.43); VBG pO2 59 mmHg
[2023-08-09 11:56] LABS: Alanine Aminotransferase 33 U/L (0-31); Albumin Level 1.7 g/dL (3.5-5.0); Alkaline Phosphatase 251 U/L (39-117); Anion Gap 15 (12-20); Aspartate Amino Transferase 28 U/L (5-31); Bilirubin Total 0.6 mg/dL (0.0-1.0); Blood Urea Nitrogen 43 mg/dL (9-16); Calcium 7.8 mg/dL (8.4-10.2); Carbon Dioxide 16 mmol/L (22-29); Chloride 114 mmol/L (96-108); Creatinine Clr Calc Pharmacy 22.4; Estimated Glomerular Filt Rate 23; Glucose Random 161 mg/dL (60-115); Magnesium 2.3 mg/dL (1.6-2.6); Phosphorus 2.1 mg/dL (2.7-4.5); Potassium 3.8 mmol/L (3.3-5.1); Sodium 141 mmol/L (135-145); Total Protein 4.8 g/dL (6.5-8.0)
[2023-08-09] MEDS: Sodium Bicarbonate 8.4% 50 MEQ/50 ML SYRINGE IVPUSH (12:04)
--- NOTE | 2023-08-09 12:05 | W.PM.CCHP ---
Procedures Date of Service Date of Service: 08/09/23 Central Line Placement Right IJ: Central Line Comments: Right internal jugular triple-lumen central venous catheter emergently placed for pressor support under ultrasound guidance with no immediate complications. X-ray for line position is pending.
[2023-08-09] MEDS: Albumin Human 25 % 100 ML 133.33 ML IV ×4 (12:10→15:05)
[2023-08-09] MEDS: Lactated Ringers 1,000 ML 999 ML IV ×2 (12:53→13:58)
[2023-08-09] MEDS: Tbo-Filgrastim 300 MCG/0.5 ML SYRINGE SUBCUT (13:13)
--- NOTE | 2023-08-09 13:39 | P.PNGS_ITS ---
Subjective Subjective Date of Service: 08/12/23 Interval history: Worsening shortness of breath early this morning, transferred to ICU Requiring a lot of O2 supplementation NG tube placed - high initial output Patient remains short of breath Confused as well to certain extent although answers some questions Physical Exam 2 Vital Signs: Vital Signs: Last Vital Signs Temp 97.2 F 08/09/23 12:00 Pulse 83 08/09/23 13:00 Resp 14 08/09/23 13:00 BP 105/48 L 08/09/23 13:00 Pulse Ox 95 08/09/23 13:00 O2 Del Method Nasal Cannula 08/09/23 13:00 O2 Flow Rate 10 08/09/23 13:00 Oxygen Flow Rate 10 08/09/23 08:00 BMI result Body Mass Index 29.9 Const: Other: Short of breath requiring O2 by face mask earlier, now with nasal cannula Resp: Other: Short of breath Cardio: Rate: regular rate GI: Palpation (GI): Soft to palpation, not firm and no guarding Objective Data Active Medications Acetaminophen (Acetaminophen 325 Mg Tablet) 650 mg PO Q6H PRN PRN Reason: Pain, Mild (Pain Scale 1-3) Last Admin: 08/06/23 17:55 Dose: 650 mg Documented By: VERITO Apixaban (Apixaban 5 Mg Tablet) 5 mg PO BID FLAQUITA Last Admin: 08/09/23 10:11 Dose: Not Given Documented By: CHAVA Non-Admin Reason: NPO Amiodarone HCl 900 mg/ Sodium (Chloride) 518 mls @ 34.533 mls/hr IVCONT .Q15H1M FLAQUITA; Protocol Last Admin: 08/09/23 09:49 Dose: 1 mg/min, 34.53 mls/hr Documented By: CHAVA Phenylephrine HCl 100 mg/ (Sodium Chloride) 260 mls @ 0 mls/hr IVCONT .Q0M FLAQUITA; Protocol Last Titration: 08/09/23 11:25 Dose: 5 mcg/kg/min, 61.62 mls/hr Documented By: CHAVA Cefepime HCl 2 gm/ Sodium (Chloride) 50 mls @ 100 mls/hr IV Q24H FLAQUITA Lactated Ringer's (Lr) 1,000 mls @ 999 mls/hr IV .Q1H1M FLAQUITA Stop: 08/09/23 14:15 Last Admin: 08/09/23 12:53 Dose: 999 mls/hr Documented By: CHAVA Albumin Human (Kedbumin 25 %) 100 mls @ 133.333 mls/hr IV Q1H [facility] Stop: 08/09/23 13:59 Norepinephrine Bitartrate (Levophed) 8 mg in 250 mls @ 0 mls/hr IV .Q0M [facility]; Protocol Metoclopramide HCl (Metoclopramide Hcl 10 Mg/2 Ml Vial) 10 mg IVPUSH Q6H PRN PRN Reason: Nausea and Vomiting Last Admin: 08/09/23 05:25 Dose: 10 mg Documented By: LANA Ondansetron HCl (Ondansetron Hcl 4 Mg/2 Ml Vial) 4 mg IVPUSH Q8H PRN PRN Reason: Nausea and Vomiting Last Admin: 08/09/23 07:25 Dose: 4 mg Documented By: KEENAN Sodium Chloride (0.9 % Sodium Chloride Flush 3 Ml Syringe) 3 ml IVFLUSH QSHIFT [facility] Last Admin: 08/09/23 08:43 Dose: 3 ml Documented By: CHAVA Tbo-Filgrastim (Tbo-Filgrastim 300 Mcg/0.5 Ml Syringe) 300 mcg SUBCUT DAILY [facility] Last Admin: 08/09/23 13:13 Dose: 300 mcg Documented By: CHAVA Labs 08/10/23 04:45 08/10/23 13:56 Labs: Laboratory Results - last 24 hr 08/08/23 08/08/23 08/09/23 23:44 23:48 05:20 MCV 82.8 MCH 25.1 L MCHC 30.3 L RDW 18.0 H Plt Count 107 L MPV 12.0 Absolute Nucleated RBC 0.000 Nucleated RBC % (auto) 0.0 O2 Saturation ABG pH at Pt Temp ABG pCO2 at Pt Temp ABG pO2 at Pt Temp ABG HCO3 ABG Base Excess (Actual) VBG pH 7.33 VBG pCO2 35 VBG pO2 42 VBG HCO3 18 L VBG O2 Saturation 63.0 VBG Base Excess -6.2 Anion Gap 16 Estim Creat Clear Calc 26.4 Estimated GFR 28 POC Glucose Random Glucose Fasting Glucose 167 H Calcium 8.5 Phosphorus Magnesium Total Bilirubin AST ALT Alkaline Phosphatase Troponin I High Sens 6.7 D B-Natriuretic Peptide 336 H Total Protein Albumin 08/09/23 08/09/23 08/09/23 07:16 07:23 11:28 MCV MCH MCHC RDW Plt Count MPV Absolute Nucleated RBC Nucleated RBC % (auto) O2 Saturation 97.0 ABG pH at Pt Temp 7.36 ABG pCO2 at Pt Temp 27 L ABG pO2 at Pt Temp 95 ABG HCO3 16 L ABG Base Excess (Actual) -7.8 VBG pH VBG pCO2 VBG pO2 VBG HCO3 VBG O2 Saturation VBG Base Excess Anion Gap 15 Estim Creat Clear Calc 22.4 Estimated GFR 23 POC Glucose 136 H Random Glucose 161 H Fasting Glucose Calcium 7.8 L D Phosphorus 2.1 L Magnesium 2.3 Total Bilirubin 0.6 AST 28 ALT 33 H Alkaline Phosphatase 251 H Troponin I High Sens B-Natriuretic Peptide Total Protein 4.8 L Albumin 1.7 L 08/09/23 11:32 MCV MCH MCHC RDW Plt Count MPV Absolute Nucleated RBC Nucleated RBC % (auto) O2 Saturation ABG pH at Pt Temp ABG pCO2 at Pt Temp ABG pO2 at Pt Temp ABG HCO3 ABG Base Excess (Actual) VBG pH 7.32 VBG pCO2 28 VBG pO2 59 VBG HCO3 14 L VBG O2 Saturation 83.0 VBG Base Excess -10.0 Anion Gap Estim Creat Clear Calc Estimated GFR POC Glucose Random Glucose Fasting Glucose Calcium Phosphorus Magnesium Total Bilirubin AST ALT Alkaline Phosphatase Troponin I High Sens B-Natriuretic Peptide Total Protein Albumin Microbiology Microbiology Results: Microbiology 08/07/23 14:10 Blood Culture - Preliminary Blood - Venous No growth after 24 hours. 08/07/23 14:10 Blood Culture - Preliminary Blood - Venous No growth after 24 hours. Procedures Date of Service Date of Service: 08/12/23 Progress Note: A&P Assessment and plan (1) Carcinomatosis: Status: Acute Assessment and Plan: Has carcinomatosis, ascites from ovarian malignancy Had 1st cycle of chemotherapy in [facility] - subsequently had severe diarrhea, neutropenia CT scan reviewed - no abscess to be drained but with ascites Neutropenic but improved since yesterday Abdomen soft High initial NG tube output likely secondary to combination of ileus and partial small-bowel obstruction from pelvic malignancy Not a surgical candidate Multiple acute issues at this time ICU care Abdominal exam otherwise benign Time Spent With Patient Time: Total time managing care of this patient today ____ minutes. Quality Stroke Does the patient have a stroke diagnosis?: No VTE Prior VTE?: No VTE Risk Level:: Medical - moderate - high VTE Device Contraindication: Treatment Not Indicated VTE Drug Contraindication: N/A - Med Ordered
--- NOTE | 2023-08-09 14:32 | PM.EVENT ---
Event Note Date of Service: 08/09/23 Event Note: now on just O2 by NC still short of breath on pressors abdomen soft, no guarding or rebound, no signfiicant distension initial high NGT output - likely combination of ileus from acute illness, ?PSBO from gyne malignancy keep NGT in ok to have ice chips abdl exam benign known carcinomatosis from ovarian cancer no surgical intervention at this time dw ICU staff Time Spent With Patient Time: Total time managing care of this patient today ____ minutes.
[2023-08-09] MEDS: cefEPime HCl 2 GM in 0.9 % Sodium Chloride 50 ML IV (15:03)
[2023-08-09] MEDS: Phenylephrine HCL 100 MG in 0.9 % Sodium Chloride 250 ML 73.94 MG IVCONT ×3 (15:12→22:20)
[2023-08-09 15:39] LABS: Venous Blood Gas Refer to POC result
[2023-08-09] MEDS: Ketorolac Tromethamine 15 MG/ML VIAL IVPUSH (17:07)
[2023-08-09 22:01] LABS: Alanine Aminotransferase 27 U/L (0-31); Albumin Level 3.1 g/dL (3.5-5.0); Alkaline Phosphatase 202 U/L (39-117); Anion Gap 15 (12-20); Aspartate Amino Transferase 28 U/L (5-31); Blood Urea Nitrogen 45 mg/dL (9-16); Calcium 8.2 mg/dL (8.4-10.2); Carbon Dioxide 18 mmol/L (22-29); Chloride 114 mmol/L (96-108); Creatinine Clr Calc Pharmacy 19.7; Estimated Glomerular Filt Rate 20; Glucose Random 98 mg/dL (60-115); Magnesium 2.4 mg/dL (1.6-2.6); Phosphorus 3.4 mg/dL (2.7-4.5); Potassium 4.1 mmol/L (3.3-5.1); Sodium 143 mmol/L (135-145); Total Protein 5.3 g/dL (6.5-8.0)
[2023-08-09] MEDS: Norepinephrine Bitartrate/D5W 8 MG/250 ML PLAST..BAG 31.11 MG IV (23:29)
[2023-08-10] VITALS (79 sets, daily range): BP systolic 0–122; BP diastolic 0–52; PULSE 0–142; RESP 7–30; TEMP 34–37.9; O2SAT 82–98; BMI 34.1
[2023-08-10] MEDS: Ketorolac Tromethamine 15 MG/ML VIAL IVPUSH (01:20)
[2023-08-10] MEDS: Phenylephrine HCL 100 MG in 0.9 % Sodium Chloride 250 ML 73.94 MG IVCONT ×5 (01:58→17:04)
[2023-08-10] MEDS: ondansetron HCL 4 MG/2 ML VIAL IVPUSH (02:35)
[2023-08-10 04:55] LABS: Hemoglobin 7.2 g/dl (12.0-16.0); Mean Corpuscular Hemoglobin 25.4 pg (27.0-33.0); Mean Corpuscular Volume 84.8 fL (80.0-98.0); Red Blood Count 2.83 X10*6/uL (4.20-5.50); Red Cell Distribution Width 18.1 % (11.0-16.0)
[2023-08-10 04:59] LABS: Platelet Count 32 X10*3/uL (160-400); WBC ABN SCTR FOR CBC 1; White Blood Count 4.3 X10*3/uL (4.8-10.8)
[2023-08-10 05:03] LABS: VBG Base Excess -10.8 mmol/L; VBG HCO3 15 mmol/L (22-26); VBG pCO2 34 mmHg; VBG pH 7.25 (7.32-7.43); VBG pO2 51 mmHg
[2023-08-10 05:07] LABS: Venous Blood Gas Refer to POC result
[2023-08-10] MEDS: Norepinephrine Bitartrate/D5W 8 MG/250 ML PLAST..BAG 54.81 MG IV (05:08)
[2023-08-10 05:09] LABS: Alanine Aminotransferase 27 U/L (0-31); Albumin Level 2.6 g/dL (3.5-5.0); Alkaline Phosphatase 192 U/L (39-117); Anion Gap 17 (12-20); Aspartate Amino Transferase 31 U/L (5-31); Bilirubin Total 0.9 mg/dL (0.0-1.0); Blood Urea Nitrogen 49 mg/dL (9-16); Calcium 8.1 mg/dL (8.4-10.2); Carbon Dioxide 16 mmol/L (22-29); Chloride 115 mmol/L (96-108); Creatinine Clr Calc Pharmacy 18.7; Estimated Glomerular Filt Rate 19; Glucose Random 89 mg/dL (60-115); Magnesium 2.4 mg/dL (1.6-2.6); Phosphorus 3.6 mg/dL (2.7-4.5); Potassium 4.4 mmol/L (3.3-5.1); Sodium 144 mmol/L (135-145); Total Protein 4.9 g/dL (6.5-8.0)
[2023-08-10] MEDS: Amiodarone HCL 900 MG in 0.9 % Sodium Chloride 500 ML 17.27 MG IVCONT (05:14)
[2023-08-10] MEDS: Albumin Human 25 % 100 ML IV ×3 (05:33→08:19)
[2023-08-10] MEDS: Sodium Bicarbonate 8.4% 50 MEQ/50 ML SYRINGE IVPUSH (05:50)
--- NOTE | 2023-08-10 06:20 | PC.NURSE ---
pt requiring increasing amounts of Levo LAYBOY TENDER aware, titrated per protocol. MAP remains below 65 LAYBOY TENDER aware.
[2023-08-10] MEDS: 0.9 % Sodium Chloride Flush 3 ML SYRINGE IVFLUSH ×2 (07:43→16:38)
[2023-08-10 07:52] LABS: Band Neutrophils Percent 18 % (3-5); Eosinophils Percent Manual 1 % (0-4); Lymphocytes Absolute Manual 0.5 X10*3/uL (1.2-4.9); Lymphocytes Percent Manual 12 % (20-40); Metamyelocytes Absolute 0.1 X10*3/uL; Metamyelocytes Percent 3 %; Monocytes Absolute Manual 0.1 X10*3/uL (0.1-1.2); Monocytes Percent Manual 2 % (2-11); Myelocytes Absolute 0.1 X10*/uL; Myelocytes Percent 2 %; Neutrophils Absolute Manual 3.4 X10*3/uL (2.0-8.3); Neutrophils Percent Manual 61 % (45-73); Nucleated Red Blood Cells 6 /100WBC (0-0); Promyelocytes Percent 1 %; RBC Morphology NOTED
[2023-08-10 07:53] LABS: Burr Cells 3+ (>5) /OIF; Dohle Bodies PRESENT; Large Platelet PRESENT; Platelet Estimate DECREASED (NORMAL); Platelet Morphology Comment NOTED; Polychromasia 1+ (0-2) /OIF; Toxic Granulation PRESENT
--- NOTE | 2023-08-10 08:17 | MHC.CLN ---
RE: CONSULT FOR TPN REVIEWED LABS DISCUSSED WITH PHARMACY PT NPO R/T N/V/D RECOMMEND TPN AT 45ML/HR TO PROVIDE 767KCALS, 162G DEXTROSE, 54G PROTEIN REPLETE LYTES NEEDED FULL CLINICAL NUTRITION ASSESSMENT TO FOLLOW
[2023-08-10] MEDS: Sodium Bicarbonate 8.4% 150 MEQ in Dextrose 5 % 850 ML 50 MEQ IV (08:25)
[2023-08-10] MEDS: Sodium Bicarbonate 8.4% 50 MEQ/50 ML VIAL IVPUSH ×2 (08:48→15:04)
[2023-08-10] MEDS: Norepinephrine Bitartrate/D5W 8 MG/250 ML PLAST..BAG 84.43 MG IV (08:54)
[2023-08-10] MEDS: Digoxin 0.5 MG/2 ML AMPUL 0.25 MG IVPUSH (09:26)
--- NOTE | 2023-08-10 10:51 | P.PNCC_ITS ---
Subjective Subjective Date of Service: 08/10/23 Interval History: 78-year-old lady with underlying PVD, paroxysmal AFib on Eliquis, CKD stage 3, hypertension, carcinomatosis on carboplatin/paclitaxel 1st treatment approximately 1 week prior admitted on 08/07/23 with weakness, epigastric pain, and diarrhea admitted to general medical ruiz. CT abdomen with likely bursitis, evaluated by General surgery with no plans for procedures. Treated with opioids for underlying pain. Overnight with nausea and vomiting, and several episodes of aspiration of gastric contents with resultant hypoxia and hypotension, transferred to intensive care unit. NG tube placed with drainage of approximately 1.2 L of feculent fluid with improvement in nausea. Requiring initiation of pressor support. Overnight patient with worsening metabolic acidosis, development of anuria and AFib, also with escalating pressor requirements. Critical Care Time (minutes): 90 Physical Exam 2 Vital Signs: Vital Signs: Last Vital Signs Temp 99.3 F 08/10/23 10:00 Pulse 125 H 08/10/23 10:24 Resp 25 H 08/10/23 10:00 BP 108/38 L 08/10/23 10:24 Pulse Ox 90 L 08/10/23 10:00 O2 Del Method Humidified O2 08/10/23 07:00 O2 Flow Rate 15 08/10/23 10:00 Oxygen Flow Rate 10 08/09/23 08:00 BMI result Body Mass Index 34.1 Const: General: no acute distress, ill appearing and lethargic (Arousable and answers appropriately) Orientation/consciousness: lethargic (Arousable and answers appropriately) Eyes: Sclerae: sclerae normal EOM: EOMs intact bilaterally Neck: Neck: Yes no lymphadenopathy, Yes trachea midline and Yes supple Resp: Effort & Inspection: normal respiratory effort and no respiratory distress Auscultation: crackles (Bilateral) Cardio: Rate: tachycardic Rhythm: abnormal rhythm irregularly irregular Heart sounds: no gallops, no murmurs and no rubs GI: Palpation (GI): Soft to palpation, Tenderness to palpation present (GI) (Mild diffuse), no guarding, not rigid and Other GI palpation findings present ( Nontender) Auscultation: normal bowel sounds Extrem: General: Yes no pedal edema, No clubbing and No cyanosis Objective Data Labs 08/10/23 04:45 03/02/24 04:44 Labs: Laboratory Results - last 24 hr 08/09/23 08/09/23 08/09/23 11:28 11:32 21:21 WBC RBC Hgb Hct MCV MCH MCHC RDW Plt Count MPV Immature Gran % (Auto) Neut % (Auto) Lymph % (Auto) [place] % (Auto) Eos % (Auto) Baso % (Auto) Lymph # (Auto) [place] # (Auto) Eos # (Auto) Baso # (Auto) Abs Immat Gran (auto) Absolute Neuts (auto) Absolute Nucleated RBC Nucleated RBC % (auto) Neutrophils % (Manual) Band Neutrophils % Lymphocytes % (Manual) Monocytes % (Manual) Eosinophils % (Manual) Metamyelocytes % Myelocytes % Promyelocytes % Abs Neuts (Manual) Lymphocytes # (Manual) Monocytes # (Manual) Metamyelocytes # Myelocytes # Nucleated RBCs Toxic Granulation Dohle Bodies Platelet Estimate Large Platelets Plt Morphology Comment RBC Morphology Polychromasia [place] Cells VBG pH 7.32 VBG pCO2 28 VBG pO2 59 VBG HCO3 14 L VBG O2 Saturation 83.0 VBG Base Excess -10.0 Sodium 141 143 Potassium 3.8 4.1 Chloride 114 H 114 H Carbon Dioxide 16 L 18 L Anion Gap 15 15 BUN 43 H 45 H Creatinine 2.07 H 2.35 H Estim Creat Clear Calc 22.4 19.7 Estimated GFR 23 20 Random Glucose 161 H 98 Calcium 7.8 L D 8.2 L Phosphorus 2.1 L 3.4 Magnesium 2.3 2.4 Total Bilirubin 0.6 1.0 AST 28 28 ALT 33 H 27 Alkaline Phosphatase 251 H 202 H Total Protein 4.8 L 5.3 L Albumin 1.7 L 3.1 L 08/10/23 08/10/23 08/10/23 04:44 04:45 04:57 WBC 4.3 L RBC 2.83 L D Hgb 7.2 L D Hct 24.0 L D MCV 84.8 MCH 25.4 L MCHC 30.0 L RDW 18.1 H Plt Count 32 L D MPV TNP Immature Gran % (Auto) Cancelled Neut % (Auto) Cancelled Lymph % (Auto) Cancelled [place] % (Auto) Cancelled Eos % (Auto) Cancelled Baso % (Auto) Cancelled Lymph # (Auto) Cancelled [place] # (Auto) Cancelled Eos # (Auto) Cancelled Baso # (Auto) Cancelled Abs Immat Gran (auto) Cancelled Absolute Neuts (auto) Cancelled Absolute Nucleated RBC 0.170 H Nucleated RBC % (auto) 4.0 H Neutrophils % (Manual) 61 Band Neutrophils % 18 H Lymphocytes % (Manual) 12 L Monocytes % (Manual) 2 Eosinophils % (Manual) 1 Metamyelocytes % 3 Myelocytes % 2 Promyelocytes % 1 Abs Neuts (Manual) 3.4 Lymphocytes # (Manual) 0.5 L Monocytes # (Manual) 0.1 Metamyelocytes # 0.1 Myelocytes # 0.1 Nucleated RBCs 6 H Toxic Granulation PRESENT Dohle Bodies PRESENT Platelet Estimate DECREASED Large Platelets PRESENT Plt Morphology Comment NOTED RBC Morphology NOTED Polychromasia 1+ (0-2) [place] Cells 3+ (>5) VBG pH 7.25 L VBG pCO2 34 VBG pO2 51 VBG HCO3 15 L VBG O2 Saturation 79.0 VBG Base Excess -10.8 Sodium 144 Potassium 4.4 Chloride 115 H Carbon Dioxide 16 L Anion Gap 17 BUN 49 H Creatinine 2.47 H Estim Creat Clear Calc 18.7 Estimated GFR 19 Random Glucose 89 Calcium 8.1 L Phosphorus 3.6 Magnesium 2.4 Total Bilirubin 0.9 AST 31 ALT 27 Alkaline Phosphatase 192 H Total Protein 4.9 L Albumin 2.6 L Microbiology Microbiology Results: Microbiology 08/07/23 14:10 Blood - Venous Blood Culture - Preliminary No growth after 48 hours. 08/07/23 14:10 Blood - Venous Blood Culture - Preliminary No growth after 48 hours. 08/06/23 Unknown Urine clean catch - Urine beckman top Urine Culture - Final Progress Note: A&P Assessment and plan (1) MINGO (acute kidney injury): Status: Acute (2) Metabolic acidosis: Status: Acute (3) PVD (peripheral vascular disease): Status: Acute (4) Ileus: Status: Acute (5) Gynecologic malignancy: Status: Acute (6) Carcinomatosis: Status: Acute (7) PAF (paroxysmal atrial fibrillation): Status: Acute (8) Shock: Status: Acute Plan Assessment: 78-year-old lady with carcinomatosis with source recently started on carboplatin/paclitaxel admitted with weakness/diarrhea further complicated by ileus versus partial SBO and pulmonary aspiration Plan: Neuro: No acute issues. Cardiac: Hypotension secondary to intravascular volume depletion on the background of GI hypersecretion after chemotherapy. Continue to titrate off pressor support as tolerated. Continue colloidal support. Pulmonary: Acute hypoxic respiratory failure secondary to pulmonary aspiration of gastric content. Continue to titrate off supplemental oxygen as tolerated. Renal: Acute kidney injury secondary to intravascular volume depletion. Anoric. Continue to monitor renal indices and urine output. Endo: No acute issues. GI: Nausea and vomiting secondary to ileus versus partial SBO. Improved with placement of NG tube. Likely post chemotherapy effect. CT abdomen pelvis is pending. General surgery service care appreciated. ID: No evidence of sepsis. Empirically covered for pulmonary aspiration pneumonitis on the background of neutropenia from chemotherapy. Heme/Onc: Underlying carcinomatosis under care of [facility] gynecology- oncology. Status post 1st dose of carboplatin/paclitaxel approximately 1 week prior with resultant neutropenia. Psych: No acute issues. Miscellaneous: No acute issues. Prophylaxis: Heparin Diet: TPN Critical care time spent: 90 Quality Stroke Does the patient have a stroke diagnosis?: No VTE Prior VTE?: No VTE Risk Level:: Medical - moderate - high VTE Device Contraindication: Treatment Not Indicated VTE Drug Contraindication: N/A - Med Ordered
[2023-08-10] MEDS: Amiodarone HCL 900 MG in 0.9 % Sodium Chloride 500 ML 34.53 MG IVCONT (10:54)
--- NOTE | 2023-08-10 11:14 | PC.RT ---
Addendum entered by RT Constantin 08/10/23 13:42: Pt rapid decline on HFNC. Pt intubated by in ICU w/ 7.5 ETT 24@lip. Intubation confirmed w/ETCO2 monitoring, condensation in tube, bilateral b/s, equal chest rise, and x-ray confirmation. Bronchosopy performed immediately post intubation, no samples obtained. ABG obtained by RT and changes made to ventilator settings as needed. Pt resting on mechanical ventilation ACVC+ settings as documented. Original Note: RT called to bedside by RN for pt w/ SATs low 80's. Pt b/s rhonchorus, RT nasally suctioned pt. Pt switched from NC to oxymask 15L. SATs 90-91%.
[2023-08-10] MEDS: Norepinephrine Bitartrate/D5W 8 MG/250 ML PLAST..BAG 102.21 MG IV (11:32)
[2023-08-10] MEDS: cefEPime HCl 2 GM in 0.9 % Sodium Chloride 50 ML IV (11:46)
--- NOTE | 2023-08-10 12:44 | MHC.CM.PN ---
Pt continues care in ICU: aggitated and having difficulty keeping O2 delivery mask on - on continuous pressors d/c hypotension: was independent at home with family: d/c planning ongoing and will depend on pt's overall recovery. CM to follow
[2023-08-10] MEDS: Ketamine HCl 500 MG/5 ML VIAL 200 MG IVPUSH (12:50)
[2023-08-10] MEDS: EPINEPHrine 5 MG in Dextrose 5 % 250 ML 55.08 MG IVCONT (12:55)
[2023-08-10] MEDS: dexmedeTOMIDidine HCL/NS 400 MCG/100 ML INFUS..BTL 22.5 MCG IVCONT ×2 (13:00→16:35)
[2023-08-10] MEDS: Midazolam HCl/PF 2 MG/2 ML VIAL IVPUSH ×2 (13:12→17:24)
--- NOTE | 2023-08-10 13:18 | W.PM.CCHP ---
Procedures Date of Service Date of Service: 08/10/23 Intubation Intubation Comments: Patient with rapid progressive hypoxemia refractory to 100% high-flow support requiring emergent intubation with 7.5 cuffed ET tube under glide scope guidance with no immediate complications. X-ray for ET tube position is pending.
[2023-08-10 13:38] LABS: ABG Base Excess -19.7 mmol/L; ABG HCO3 9 mmol/L (22-26); ABG pCO2 33 mmHg (32-45); ABG pH 7.03 (7.35-7.45); ABG pO2 291 mmHg (83-108)
[2023-08-10] MEDS: Sodium Bicarbonate 8.4% 50 MEQ/50 ML VIAL 100 MEQ IVPUSH (13:46)
[2023-08-10] MEDS: Norepinephrine Bitartrate/D5W 8 MG/250 ML PLAST..BAG 122.94 MG IV (13:50)
[2023-08-10] MEDS: Hydrocortisone Sod Succ/PF 100 MG VIAL IVPUSH (13:54)
[2023-08-10] MEDS: EPINEPHrine 5 MG in Dextrose 5 % 250 ML 275.4 MG IVCONT (14:05)
[2023-08-10 14:21] LABS: Anion Gap 25 (12-20); Blood Urea Nitrogen 52 mg/dL (9-16); Calcium 7.3 mg/dL (8.4-10.2); Carbon Dioxide 15 mmol/L (22-29); Chloride 110 mmol/L (96-108); Estimated Glomerular Filt Rate 19; Glucose Random 147 mg/dL (60-115); Lactic Acid 12.9 mmol/L (0.5-2.0); Potassium 4.7 mmol/L (3.3-5.1); Sodium 145 mmol/L (135-145)
[2023-08-10] MEDS: Norepinephrine Bitartrate/D5W 8 MG/250 ML PLAST..BAG 125.91 MG IV (14:30)
--- NOTE | 2023-08-10 14:37 | HO.HCP ---
Health Care Proxy Invocation Health Care Proxy Declaration: Александр Briscoe , on the date cited below, have determined that, _Michelle Tomlinson , lacks the capacity to make or communicate, informed health care decision. This determination is made in accordance with accepted standards of medical judgment and pursuant to [place] 201[place], the [facility] Care Proxy Law. The cause, nature, extent and probable duration of the patient's inapacity are described below: Cause: Intubated, severe encephalopathy Nature: Organic Extent: Severe Probable Duration of Patient's Incapacity: Unclear
--- NOTE | 2023-08-10 14:37 | PM.CCN ---
Critical Care Event Note Summary Date of Service: 08/10/23 Code activated: No Narrative: Overall very poor clinical prognosis discussed with patient's brother/healthcare proxy and sister in decision has been reached to switch code status to do not resuscitate. Critical Care Time (minutes): 0
[2023-08-10] MEDS: EPINEPHrine 5 MG in Dextrose 5 % 250 ML 495.72 MG IVCONT ×3 (14:59→18:11)
[2023-08-10 15:01] LABS: ABG Refer to POC result
[2023-08-10 16:01] LABS: Reflex Lactate? Lactic Acid Added
[2023-08-10] MEDS: Heparin Sodium,Porcine 5,000 UNIT/ML VIAL 5000 UNIT SUBCUT (16:04)
[2023-08-10] MEDS: Calcium Gluconate/NaCl,Iso-Osm 2 GM/100 ML PLAST..BAG IV (16:37)
[2023-08-10] MEDS: Chlorhexidine Gluc Oral Rinse 15 ML MOUTHWASH BUCCAL (16:37)
[2023-08-10 16:57] LABS: ~Lactic Acid-LAB USE ONLY 17.2 mmol/L (0.5-2.0)
[2023-08-10] MEDS: Norepinephrine Bitartrate/D5W 8 MG/250 ML PLAST..BAG 128.87 MG IV (17:02)
--- NOTE | 2023-08-10 17:04 | PM.CCN ---
Critical Care Event Note Summary Date of Service: 08/10/23 Code activated: No Narrative: Progressively worsening clinical status and essentially no chance for meaningful recovery discussed with healthcare proxy and other family members who wished to change goals of care to comfort measures only. Code status updated. Critical Care Time (minutes): 0
[2023-08-10] MEDS: fentaNYL citrate/NS 1,000 MCG/100 ML PLAST..BAG 2.5 MCG IVCONT (17:23)
[2023-08-10] MEDS: fentaNYL citrate/PF 100 MCG/2 ML VIAL 50 MCG IVPUSH (17:24)
--- NOTE | 2023-08-10 17:59 | PM.EVENT ---
Event Note Date of Service: 08/10/23 Event Note: patient seen and examined asystole on telemetry, no heart sounds, apneic time of 5:58pm family at bedside Time Spent With Patient Time: Total time managing care of this patient today ____ minutes.
[2023-08-10 18:34] LABS: Reflex Lactate? 2 Y
--- NOTE | 2023-08-10 19:08 | PC.NURSE ---
Assumed care of patient at 07:00 High needs of vasopressors - phenylephrine at Max rate @6 and levophed titrated up per protocol. Family and HCP at bedside to visit. Pt had increased oxygen requirements. Transitioned from [place] NC 15L to HFNC 55L 100%. Pt nasopharyngeal suctioned once for deep secretions. Oral contrast solution given via NGT for CT scan abdomen. 12:45 pt SaO2 82%. HFNC + partial NRB applied. Pt condition did not improve. MD notified and to bedside. RT called to bedside. MD spoke with HCP and decision was made to intubate patient. 12:50 100 mcg ketamine given IVP. 13:00 patient intubated 7.5 24@ lip. Epi gtt started for patient per protocol/ per MD. SaO2 77% with AC vent settings FiO2 100% and PEEP 12.0. MD performed bronchoscopy emergently. SaO2 increased to 88%. SaO2 continued to improve to 99% on FiO2 100%. HCP agrees with plan for CT abdomen. 15:[address] with RN, RT, SN, [address] tech[address] No events at CT. Pt returned to room and MAPs <65, low blood pressures. MD updated Family/HCP of patient health status, increased vasopressor requirements. 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 Fantanyl gtt started at this time, prn fentanyl 50 mcg given, prn versed 2mg given per MD. 17:35 patient terminally extubated to room air for CONSUMER AFFAIRS SPECIALIST. 17:[address] Alison DAVENPORT to bedside to pronounce patient time of . ICU MD notified, nurse food and nutrition supervisor notified. [facility] called and declined donation.
--- NOTE | 2023-08-11 12:14 | PM.DDS ---
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 08/07/23 16:18 Consult to Hematology / Oncology Routine Consulting Provider: Dm Marie Reason for consultation: neutropenia 08/07/23 17:59 Consult to General Surgery Routine Consulting Provider: [facility] [place] [facility] Reason for consultation: loculated ascites, abd pain Discharge Sum: Diag Contributing Factors (1) Shock: (2) Metabolic acidosis: (3) MINGO (acute kidney injury): (4) Ileus: (5) Chemotherapy-induced enteritis: (6) Carcinomatosis: (7) Gynecologic malignancy: (8) PAF (paroxysmal atrial fibrillation): (9) PVD (peripheral vascular disease): Discharge Sum: Summary Date and Time Date of admission: 08/07/23 16:19 Date of : 08/10/23 Time of : 17:49 Summary Details: 78-year-old lady with underlying PVD, paroxysmal AFib on Eliquis, CKD stage 3, hypertension, carcinomatosis on carboplatin/paclitaxel 1st treatment approximately 1 week prior admitted on 08/07/23 with weakness, epigastric pain, and diarrhea admitted to general medical ruiz. CT abdomen with likely bursitis, evaluated by General surgery with no plans for procedures. Treated with opioids for underlying pain. Overnight with nausea and vomiting, and several episodes of aspiration of gastric contents with resultant hypoxia and hypotension, transferred to intensive care unit. NG tube placed with drainage of approximately 1.2 L of feculent fluid with improvement in nausea, but requiring initiation of pressor support. Overnight 08/09/2023 patient with worsening metabolic acidosis, development of anuria and AFib, also with escalating pressor requirements and development of progressive respiratory failure requiring intubation and ventilatory support for refractory metabolic acidosis. Repeat CT abdomen obtained and discussed with general surgeon with no options for surgical intervention. Several family discussions held with healthcare proxy and other family members who decided to switch goals of care to palliation. Code status changed to comfort measures only. Patient extubated and passed comfortably with family at the bedside at 17:49 on 08/10/2023. Additional Data Attending physician: Александр Campo MD
== END 2023-08-10 17:58 | disposition expired | DRG 393 ==
LOC: HO.ED 08-07 15:32 → HO.EDOVER 08-07 16:44 → HO.S3 08-07 23:56 → HO.ICU 08-09 07:56
PROVIDERS: Internal Medicine; Physician Assistant; Student in an Organized Health Care Education/Training Program; Admitting Provider Physician Assistant; Emergency Provider Emergency Medicine; PCP Internal Medicine; Visit Provider Internal Medicine Pulmonary Disease
DX: K52.1 Toxic gastroenteritis and colitis (principal); G93.41 Metabolic encephalopathy; J69.0 Pneumonitis due to inhalation of food and vomit; J96.01 Acute respiratory failure with hypoxia; C56.9 Malignant neoplasm of unspecified ovary; C78.6 Secondary malignant neoplasm of retroperitoneum and peritoneum; K56.7 Ileus, unspecified; R57.9 Shock, unspecified; G89.3 Neoplasm related pain (acute) (chronic); Z66 Do not resuscitate; Z51.5 Encounter for palliative care; D63.0 Anemia in neoplastic disease; D63.1 Anemia in chronic kidney disease; I73.9 Peripheral vascular disease, unspecified; K21.9 Gastro-esophageal reflux disease without esophagitis; I48.0 Paroxysmal atrial fibrillation; D70.1 Agranulocytosis secondary to cancer chemotherapy; E78.5 Hyperlipidemia, unspecified; N18.30 Chronic kidney disease, stage 3 unspecified; I12.9 Hypertensive chronic kidney disease with stage 1 through stage 4 chronic kidney disease, or unspecified chronic kidney disease; T45.1X5A Adverse effect of antineoplastic and immunosuppressive drugs, initial encounter; Z20.822 Contact with and (suspected) exposure to COVID-19; Z79.01 Long term (current) use of anticoagulants; Z79.899 Other long term (current) drug therapy
CPT/HCPCS: 0241U; 36415; 36600; 71045; 74176; 74177; 80048; 80053; 81001; 82803; 82947; 83605; 83690; 83735; 83880; 84100; 84145; 84484; 85007; 85025; 85027; 87040; 87086; 87493; 92950; 93005; 94002; 94003; 94799; 97162; 99285; C1758; J0171; J0282; J0283; J0613; J0692; J0737; J1160; J1447; J1644; J1720; J1885; J2250; J2270; J2371; J2405; J2765; J3010; J7120; P9047; Q9967

== ENCOUNTER → 2023-08-06 05:28 | Outpatient (BNV) | payer MEDICARE, SELFPAY | PROVIDERS: Emergency Provider Emergency Medicine; PCP Internal Medicine; Visit Provider Internal Medicine | DX: R42 Dizziness and giddiness (principal) | CPT/HCPCS: 93010 ==

== ENCOUNTER → 2023-08-07 16:19 | Outpatient (BNV) | payer MEDICARE, SELFPAY | PROVIDERS: Admitting Provider Physician Assistant; Emergency Provider Emergency Medicine; PCP Internal Medicine; Visit Provider Internal Medicine Medical Oncology | DX: C57.9 Malignant neoplasm of female genital organ, unspecified (principal); K52.1 Toxic gastroenteritis and colitis; D70.9 Neutropenia, unspecified | CPT/HCPCS: 99222 ==

== ENCOUNTER → 2023-08-07 16:19 | Outpatient (BNV) | payer MEDICARE, SELFPAY | PROVIDERS: Admitting Provider Physician Assistant; Emergency Provider Emergency Medicine; PCP Internal Medicine; Visit Provider Internal Medicine Pulmonary Disease | DX: E87.21 Acute metabolic acidosis (principal); C80.0 Disseminated malignant neoplasm, unspecified; I48.0 Paroxysmal atrial fibrillation; N17.9 Acute kidney failure, unspecified; I73.9 Peripheral vascular disease, unspecified; K56.7 Ileus, unspecified; R57.9 Shock, unspecified | CPT/HCPCS: 31500; 36556; 99238; 99291; 99292 ==

== ENCOUNTER → 2023-08-07 16:19 | Outpatient (BNV) | payer MEDICARE, SELFPAY | PROVIDERS: Admitting Provider Physician Assistant; Emergency Provider Emergency Medicine; PCP Internal Medicine; Visit Provider Surgery | DX: C80.0 Disseminated malignant neoplasm, unspecified (principal) | CPT/HCPCS: 99222; 99233; 99499 ==

== ENCOUNTER → 2023-08-07 16:19 | Outpatient (BNV) | payer MEDICARE, SELFPAY | PROVIDERS: Admitting Provider Physician Assistant; Emergency Provider Emergency Medicine; PCP Internal Medicine; Visit Provider Physician Assistant | DX: D70.9 Neutropenia, unspecified (principal); C57.9 Malignant neoplasm of female genital organ, unspecified | CPT/HCPCS: 99223; 99233; 99499 ==